=== PATIENT | female | born 1970 | race Caucasian/White ===

== ENCOUNTER 2020-03-16 17:13 | Outpatient (REF) | payer OTHER, SELFPAY ==
[2020-03-23 10:37] LABS: HPV mRNA E6/E7 rflx Not Detected (Not Detected)
== END 2020-03-16 17:14 | disposition home or self-care (01) ==
LOC: HO.LNP 17:13
PROVIDERS: Visit Provider Internal Medicine
DX: Z00.01 Encounter for general adult medical examination with abnormal findings (principal)
CPT/HCPCS: 87624; 87625; 88142

== ENCOUNTER 2020-03-18 10:46 | Outpatient (REF) | payer OTHER, SELFPAY ==
[2020-03-18 13:57] LABS: MANUAL DIFF FLAG NO
[2020-03-18 14:01] LABS: Basophils Percent Auto 0.5 % (0-2); Eosinophils Absolute Auto 0.2 X10*3/uL (0.0-0.4); Eosinophils Percent Auto 2.5 % (0-4); Hematocrit 37.8 % (37-47); Hemoglobin 12.1 g/dl (12.0-16.0); Imm Gran Abs Auto 0.02 X10*3/uL (0.00-0.03); Imm Gran Pct Auto 0.2 % (0.0-0.4); Lymphocytes Absolute Auto 2.4 X10*3/uL (1.2-4.9); Lymphocytes Percent Auto 29.7 % (20-40); Mean Corpuscular Hemoglobin 25.5 pg (27.0-33.0); Mean Corpuscular Volume 79.7 fL (80-98); Mean Platelet Volume 9.2 fL (9.4-12.3); Monocytes Absolute Auto 0.5 X10*3/uL (0.1-1.2); Monocytes Percent Auto 5.9 % (2-11); Neutrophils Percent Auto 61.2 % (45-73); Platelet Count 443 X10*3/uL (160-400); Red Blood Count 4.74 X10*6/uL (4.20-5.50); Red Cell Distribution Width 15.5 % (11.0-16.0); White Blood Count 8.1 X10*3/uL (4.8-10.8)
[2020-03-18 14:14] LABS: Estimated Average Glucose 134 mg/dL; Hemoglobin A1c % 6.3 %
[2020-03-18 14:25] LABS: Alanine Aminotransferase 46 U/L (0-31); Anion Gap 15 (12-20); Aspartate Amino Transferase 32 U/L (5-31); Blood Urea Nitrogen 13 mg/dL (9-16); Calcium 8.8 mg/dL (8.4-10.2); Carbon Dioxide 25 mmol/L (22-29); Chloride 101 mmol/L (96-108); Cholesterol 198 mg/dL; Estimated Glomerular Filt Rate > 60; Glucose Fasting 92 mg/dL (60-99); HDL Cholesterol 46 mg/dL; Iron 46 mcg/dL (30-160); LDL Cholesterol Calculated 131 mg/dl; Percent Iron Saturation 13 % (15-50); Potassium 4.4 mmol/l (3.3-5.1); Sodium 137 mmol/L (135-145); Total Iron Binding Capacity 361 mcg/dL (228-428); Triglycerides 107 mg/dL; Unsaturated Iron Binding 315 ug/dL
[2020-03-18 14:39] LABS: Microalbum/Creatinine Ratio Ur 4.9 ug/mg cr
[2020-03-18 14:47] LABS: Ferritin 42 ng/mL (10-250)
== END 2020-03-18 10:47 | disposition home or self-care (01) ==
LOC: HO.HMGCLDS 10:46
PROVIDERS: PCP Internal Medicine; Visit Provider Internal Medicine
DX: Z00.01 Encounter for general adult medical examination with abnormal findings (principal); E11.9 Type 2 diabetes mellitus without complications; E66.01 Morbid (severe) obesity due to excess calories; E78.5 Hyperlipidemia, unspecified; I10 Essential (primary) hypertension; K76.0 Fatty (change of) liver, not elsewhere classified; D50.9 Iron deficiency anemia, unspecified
CPT/HCPCS: 36415; 80048; 80061; 82043; 82728; 83036; 83540; 84450; 84460; 85025

== ENCOUNTER 2020-05-18 14:28 | Outpatient (REF) | payer OTHER, SELFPAY ==
[2020-05-18 15:29] LABS: Creatinine Urine 62.43 mg/dL; Microalbumin Urine < 5.0 mg/L
== END 2020-05-18 14:29 | disposition home or self-care (01) ==
LOC: HO.LNP 14:28
PROVIDERS: Visit Provider Internal Medicine
DX: E11.9 Type 2 diabetes mellitus without complications (principal)
CPT/HCPCS: 82043

== ENCOUNTER 2020-05-19 09:33 | Outpatient (REF) | payer OTHER, SELFPAY ==
[2020-05-19 11:14] LABS: MANUAL DIFF FLAG NO
[2020-05-19 11:24] LABS: Basophils Absolute Auto 0.1 X10*3/uL (0.0-0.2); Basophils Percent Auto 0.6 % (0-2); Eosinophils Absolute Auto 0.2 X10*3/uL (0.0-0.4); Eosinophils Percent Auto 1.5 % (0-4); Hematocrit 40.6 % (37-47); Hemoglobin 12.4 g/dl (12.0-16.0); Imm Gran Abs Auto 0.15 X10*3/uL (0.00-0.03); Imm Gran Pct Auto 1.5 % (0.0-0.4); Lymphocytes Absolute Auto 2.4 X10*3/uL (1.2-4.9); Lymphocytes Percent Auto 24.2 % (20-40); Mean Corpuscular HGB Conc 30.5 g/dl (31.0-35.0); Mean Corpuscular Hemoglobin 24.2 pg (27.0-33.0); Mean Corpuscular Volume 79.3 fL (80-98); Mean Platelet Volume 9.3 fL (9.4-12.3); Monocytes Absolute Auto 0.6 X10*3/uL (0.1-1.2); Monocytes Percent Auto 6.3 % (2-11); Neutrophils Absolute Auto 6.6 X10*3/uL (2.0-8.3); Neutrophils Percent Auto 65.9 % (45-73); Platelet Count 655 X10*3/uL (160-400); Red Blood Count 5.12 X10*6/uL (4.20-5.50); Red Cell Distribution Width 15.1 % (11.0-16.0)
[2020-05-19 12:02] LABS: Alanine Aminotransferase 55 U/L (0-31); Anion Gap 19 (12-20); Aspartate Amino Transferase 38 U/L (5-31); Blood Urea Nitrogen 11 mg/dL (9-16); Calcium 9.1 mg/dL (8.4-10.2); Carbon Dioxide 24 mmol/L (22-29); Chloride 101 mmol/L (96-108); Cholesterol 177 mg/dL; Estimated Glomerular Filt Rate > 60; Glucose Fasting 120 mg/dL (60-99); HDL Cholesterol 25 mg/dL; Iron 20 mcg/dL (30-160); LDL Cholesterol Calculated 123 mg/dl; Percent Iron Saturation 6 % (15-50); Potassium 4.6 mmol/l (3.3-5.1); Sodium 139 mmol/L (135-145); Total Iron Binding Capacity 321 mcg/dL (228-428); Triglycerides 148 mg/dL; Unsaturated Iron Binding 301 ug/dL
[2020-05-19 12:12] LABS: TSH reflex Free T4 0.88 mIU/mL (0.32-4.0)
== END 2020-05-19 09:34 | disposition home or self-care (01) ==
LOC: HO.HMGCLDS 09:33
PROVIDERS: PCP Internal Medicine; Visit Provider Internal Medicine
DX: D50.9 Iron deficiency anemia, unspecified (principal); E11.9 Type 2 diabetes mellitus without complications; K58.0 Irritable bowel syndrome with diarrhea; E66.01 Morbid (severe) obesity due to excess calories; K76.0 Fatty (change of) liver, not elsewhere classified; I10 Essential (primary) hypertension; K21.9 Gastro-esophageal reflux disease without esophagitis; E78.5 Hyperlipidemia, unspecified
CPT/HCPCS: 36415; 80048; 80061; 82306; 83540; 84443; 84450; 84460; 85025

== ENCOUNTER 2020-06-03 12:28 | Outpatient (REF) | payer OTHER, SELFPAY | END 2020-06-03 12:29 | disposition home or self-care (01) | LOC: HO.LNP 12:28 | PROVIDERS: Visit Provider Hospitalist | DX: Z13.89 Encounter for screening for other disorder (principal) ==

== ENCOUNTER 2020-08-05 14:08 | Outpatient (REF) | payer OTHER, SELFPAY | END 2020-08-05 14:09 | disposition home or self-care (01) | LOC: HO.LNP 14:08 | PROVIDERS: Visit Provider Nurse Practitioner Family | DX: J02.9 Acute pharyngitis, unspecified (principal); Z20.822 Contact with and (suspected) exposure to COVID-19 | CPT/HCPCS: U0003; U0005 ==

== ENCOUNTER 2020-09-16 13:50 | Emergency (ER) | payer OTHER, SELFPAY ==
--- NOTE | ~2020-09-16 | CT_ITS ---
EXAMINATION: CT ABDOMEN AND PELVIS WITHOUT CONTRAST CLINICAL INFORMATION: Left lower quadrant pain COMPARISON: None TECHNIQUE: Multidetector volumetric imaging was performed from the superior aspect of the liver through the pubic symphysis. Sagittal and coronal reformatted images were obtained on the technologist's workstation. This CT examination was performed using dose optimization techniques as appropriate, variously including the following: *Automated exposure control *Adjustment of mA and/or kV according to patient size (this includes techniques or standardized protocols for targeted exams where dose is matched to indication/reason for exam; i.e. extremities or head) *Use of iterative reconstruction technique DLP: 1197 mGy-cm FINDINGS: LUNG BASES: The visualized lung bases are unremarkable. LIVER, GALLBLADDER, AND BILIARY TREE: The liver is low in attenuation suggestive of fatty infiltration. No focal liver lesion or biliary duct dilatation. The gallbladder is unremarkable with no evidence of radiopaque gallstones, gallbladder wall thickening, or obvious pericholecystic inflammatory changes. PANCREAS: Unremarkable. SPLEEN: Unremarkable. ADRENAL GLANDS: Unremarkable. KIDNEYS AND URETERS: The kidneys are normal in size, shape, and attenuation. No hydronephrosis, hydroureter, or calculi seen. No perinephric stranding. BLADDER: Unremarkable. GASTROINTESTINAL TRACT: There is mild diverticulosis of the colon. No evidence of diverticulitis is seen. The small and large bowel are unremarkable. The appendix is unremarkable. ABDOMINAL WALL: There is diastasis of the rectus muscles and small umbilical hernia containing fat. LYMPH NODES: There is mild nonspecific fat stranding of the small bowel mesentery. No enlarged lymph nodes are seen. There is no ascites. VASCULAR: Unremarkable. PELVIC VISCERA: Unremarkable. OSSEOUS STRUCTURES: There are degenerative changes of the spine and right hip joint. CT/CT abdomen pelvis wo con IMPRESSION: Diverticulosis. No evidence of diverticulitis. Mild fat stranding of the small bowel mesentery. Fatty liver. Diastasis of the rectus muscles and small umbilical hernia containing fat.
[2020-09-16 14:19] VITALS: BP 124/57; PULSE 80; RESP 18; TEMP 36.9; O2SAT 100; BMI 46.5
[2020-09-16 15:02] VITALS: BP 141/88; PULSE 76; RESP 16; O2SAT 76
--- NOTE | 2020-09-16 15:09 | PC.NURSE ---
Patient comes to ER for evaluation of abdominal pain that she points to upper mid abd and right of mid line that she describes goes into her back. She also says she feels bloated and gassy. Last bm was this morning. Pain started this morning when she got up. Pt denies nausea, vomiting, or diarrhea. Pt states she had a bowel obstruction a few months ago and has had gallbladder issues in the past
[2020-09-16 16:16] LABS: MANUAL DIFF FLAG NO
[2020-09-16 16:20] LABS: Basophils Percent Auto 0.5 % (0-2); Eosinophils Absolute Auto 0.2 X10*3/uL (0.0-0.4); Eosinophils Percent Auto 1.9 % (0-4); Hematocrit 35.3 % (37-47); Hemoglobin 11.1 g/dl (12.0-16.0); Imm Gran Abs Auto 0.02 X10*3/uL (0.00-0.03); Imm Gran Pct Auto 0.2 % (0.0-0.4); Lymphocytes Absolute Auto 2.7 X10*3/uL (1.2-4.9); Lymphocytes Percent Auto 30.9 % (20-40); Mean Corpuscular HGB Conc 31.4 g/dl (31.0-35.0); Mean Corpuscular Hemoglobin 24.5 pg (27.0-33.0); Mean Corpuscular Volume 77.9 fL (80-98); Mean Platelet Volume 8.6 fL (9.4-12.3); Monocytes Absolute Auto 0.6 X10*3/uL (0.1-1.2); Monocytes Percent Auto 6.3 % (2-11); Neutrophils Absolute Auto 5.3 X10*3/uL (2.0-8.3); Neutrophils Percent Auto 60.2 % (45-73); Platelet Count 366 X10*3/uL (160-400); Red Blood Count 4.53 X10*6/uL (4.20-5.50); Red Cell Distribution Width 15.8 % (11.0-16.0); White Blood Count 8.8 X10*3/uL (4.8-10.8)
[2020-09-16] MEDS: 0.9 % Sodium Chloride 1,000 ML 999 ML IVCONT (16:24)
[2020-09-16 16:37] LABS: Appearance Urine CLEAR; Color Urine YELLOW; Glucose Urine UA NEG (NEG); Leukocyte Esterase Urine NEG (NEG); Nitrite Urine NEG (NEG); Urine Blood NEG (NEG); Urine Ketones NEG (NEG); Urine Protein NEG (NEG-TRACE)
[2020-09-16 16:40] LABS: Alanine Aminotransferase 31 U/L (0-31); Albumin Level 3.9 g/dL (3.5-5.0); Alkaline Phosphatase 98 U/L (39-117); Anion Gap 13 (12-20); Aspartate Amino Transferase 22 U/L (5-31); Bilirubin Direct 0.2 mg/dL (0.0-0.5); Bilirubin Total 0.6 mg/dL (0.0-1.0); Blood Urea Nitrogen 14 mg/dL (9-16); Calcium 9.7 mg/dL (8.4-10.2); Carbon Dioxide 26 mmol/L (22-29); Chloride 104 mmol/L (96-108); Creatinine Clr Calc Pharmacy 116.8; Estimated Glomerular Filt Rate > 60; Glucose Random 92 mg/dL (60-115); Lipase 23 U/L (8-78); Magnesium 2.2 mg/dL (1.6-2.6); Potassium 4.3 mmol/L (3.3-5.1); Sodium 139 mmol/L (135-145); Total Protein 6.5 g/dL (6.5-8.0)
--- NOTE | 2020-09-16 16:58 | ED_ITS ---
HPI - General Adult General Chief complaint: General Medical Stated complaint: abd/back pain Time Seen by Provider: 09/16/20 15:21 Source: patient Mode of arrival: ambulatory History of Present Illness HPI narrative: 50-year-old female with a past medical history of GERD, diverticulosis, hyperlipidemia, HTN, fatty liver, epigastric hernia repair, SBO, IBS, morbid obesity, DARIELA, TBI, diabetes, presenting to the ED complaining periumbilical/LLQ abdominal pain radiating to back s/p mowing lawn yesterday. Pain described as ripping/tearing. Denies known injury/trauma or fall, nausea/vomiting, diarrhea/constipation, dysuria/hematuria, fever, chills. Last BM today Onset (ago): day(s) Related Data Home Medications Medication Instructions Recorded Confirmed flu vacc [id number] 6mos up(PF) ml IM 03/16/20 06/06/20 Previous Rx's Medication Instructions Recorded omeprazole 20 mg capsule,delayed 20 mg PO DAILY PRN #30 cap 02/12/20 release dicyclomine 10 mg capsule 20 mg PO TID #180 cap 04/07/20 azithromycin 500 mg tablet 500 mg PO DAILY 5 Days #5 tab 08/05/20 prednisone 20 mg tablet 40 mg PO DAILY 5 Days #10 tab 08/05/20 Allergies Allergy/AdvReac Type Severity Reaction Status Date / Time cephalexin [From KEFLEX] Allergy Unknown ANGIOEDEMA Verified 09/16/20 14:19 contrast dyes Allergy Unknown tongue Verified 09/16/20 14:19 numbness, headache, airway involvement, tongue numbness, headache, airway involvement kiwi [KIWI] Allergy Unknown ANAPHYLAXIS Verified 09/16/20 14:19 Sulfa (Sulfonamide Allergy Unknown anaphylaxis, Verified 09/16/20 14:19 Antibiotics) diarrhea [SULFA (SULFONAMIDE ANTIBIOTICS)] acetaminophen [Percocet] AdvReac Unknown vomiting Verified 09/16/20 14:19 naproxen [Naprosyn] AdvReac Unknown vomiting Verified 09/16/20 14:19 nitrofurantoin [Macrobid] AdvReac Unknown dizziness Verified 09/16/20 14:19 oxycodone [Percocet] AdvReac Unknown vomiting Verified 09/16/20 14:19 sulfamethoxazole AdvReac Unknown diarrhea Verified 09/16/20 14:19 Review of Systems Review of Systems: Constitutional: No Fever, No Chills Cardiovascular: No Chest Pain, No SOB Respiratory: No Cough, No Dyspnea Gastrointestinal: No Nausea, No Vomiting, No Diarrhea, No Constipation, + Abdominal pain Genitourinary: No Dysuria, No Urinary Frequency, No Hematuria, No Flank Pain Musculoskeletal: No joint pain, No Myalgias Skin: No Skin Lesions, No rash Neuro: No Weakness, No Numbness, No Headache Yes all other systems are reviewed and are negative [facility] Past Medical History Attestation statement: The following information was validated with the patient. Medical History (Updated 09/16/20 @ 17:25 by EFRA Delatorre) Chronic GERD Diverticulosis Dyslipidemia Essential hypertension Fatty liver Folliculitis History of small bowel obstruction Hypochromic anemia IBS (irritable bowel syndrome) Morbid obesity Narcolepsy Oral thrush DARIELA (obstructive sleep apnea) Traumatic brain injury Type 2 diabetes mellitus without complication, without long-term current use of insulin Surgical History History of carpal tunnel release of both wrists History of colonoscopy History of hernia repair Family History Family History Father Diabetes mellitus HTN (hypertension) Mother Diabetes mellitus HTN (hypertension) Son Autism Daughter Glioblastoma multiforme Maternal Grandfather Cancer of prostate Brother No problems noted. Sister No problems noted. Son No problems noted. Social History Social History Alcohol intake: former Patient Tobacco Use Status: Never used Tobacco Use of substances other than those prescribed or required for medical reasons: No Advance Directives: Yes Advance Directives Information Provided: Yes Advance Directives on File: No Patient : No Physical Exam Vital Signs: Vital Signs: Last Vital Signs Temp 98.4 F 09/16/20 14:19 Pulse 76 09/16/20 15:02 Resp 16 09/16/20 15:02 BP 141/88 H 09/16/20 15:02 Pulse Ox 76 L 09/16/20 15:02 Body Mass Index 46.5 Const: General: cooperative, healthy appearing and no acute distress Orientation/consciousness: patient oriented x3 Limitations: no limitations HENMT: Head: Yes normal to inspection Ears: hearing grossly normal bilaterally General nose exam: Normal external nose present Face and sinus: Yes normal facial exam Eyes: General: appearance normal, both eyes and all related structures EOM: EOMs intact bilaterally Neck: Neck: Yes normal visual inspection and Yes no meningeal signs Resp: Effort & Inspection: normal respiratory effort Cardio: Rate: regular rate GI: Other: No appreciable protruding hernia. +Diastasis recti Inspection: Yes normal to inspection Palpation (GI): Soft to palpation, Tenderness to pal pation present (GI) in the LLQ and periumbilically, no guarding and not rigid : General: Yes no CVA tenderness Back/Spine/Pelvis: Back: no CVA tenderness Skin: Rashes: no rashes Wounds: no wounds Neuro: General: patient oriented x3 and no meningeal signs Gait exam (Neuro): Normal gait present Extrem: General: Yes normal to inspection Course Course Course Narrative: -no leukocytosis, H&H stable, labs otherwise unremarkable, UA negative CT abdomen pelvis wo con IMPRESSION: Diverticulosis. No evidence of diverticulitis. Mild fat stranding of the small bowel mesentery. Fatty liver. Diastasis of the rectus muscles and small umbilical hernia containing fat. > results discussed with patient including worrisome signs and symptoms and strict return precautions. Patient verbalized understanding feel safe for discharge home Medical Decision Making MDM Narrative Medical decision making narrative: 50-year-old female with a past medical history of GERD, diverticulosis, hyperlipidemia, HTN, fatty liver, epigastric hernia repair, SBO, IBS, morbid obesity, DARIELA, TBI, diabetes, presenting to the ED complaining periumbilical/LLQ abdominal pain radiating to back s/p mowing lawn yesterday. On exam VSS, NAD, abdomen soft with periumbilical/LLQ ttp, no rebound or guarding, no CVAT. Concern for MSK strain/pain vs hernia vs diverticulitis. Lower concern for cholecystitis or appendicitis or renal stone Plan: Labs, UA, CT AP, reassess Lab Data Result diagrams: 09/16/20 16:10 09/16/20 16:10 Labs: Lab Results 09/16/20 09/16/20 09/16/20 Range/Units 16:10 16:10 16:28 WBC 8.8 (4.8-10.8) X10*3/uL RBC 4.53 (4.20-5.50) X10*6/uL Hgb 11.1 L (12.0-16.0) g/dl Hct 35.3 L (37-47) % MCV 77.9 L (80-98) fL MCH 24.5 L (27.0-33.0) pg MCHC 31.4 (31.0-35.0) g/dl RDW 15.8 (11.0-16.0) % Plt Count 366 D (160-400) X10*3/uL MPV 8.6 L (9.4-12.3) fL Immature Gran % (Auto) 0.2 (0.0-0.4) % Neut % (Auto) 60.2 (45-73) % Lymph % (Auto) 30.9 (20-40) % [place] % (Auto) 6.3 (2-11) % Eos % (Auto) 1.9 (0-4) % Baso % (Auto) 0.5 (0-2) % Lymph # (Auto) 2.7 (1.2-4.9) X10*3/uL [place] # (Auto) 0.6 (0.1-1.2) X10*3/uL Eos # (Auto) 0.2 (0.0-0.4) X10*3/uL Baso # (Auto) 0.0 (0.0-0.2) X10*3/uL Abs Immat Gran (auto) 0.02 (0.00-0.03) X10*3/uL Absolute Neuts (auto) 5.3 (2.0-8.3) X10*3/uL Absolute Nucleated RBC 0.000 (0.0-0.012) X10*3/uL Nucleated RBC % (auto) 0.0 (0.0-0.2) /100WBC Sodium 139 (135-145) mmol/L Potassium 4.3 (3.3-5.1) mmol/L Chloride 104 (96-108) mmol/L Carbon Dioxide 26 (22-29) mmol/L Anion Gap 13 (12-20) BUN 14 (9-16) mg/dL Creatinine 0.79 (0.5-1.4) mg/dL Estim Creat Clear Calc 116.8 Estimated GFR > 60 Random Glucose 92 (60-115) mg/dL Calcium 9.7 D (8.4-10.2) mg/dL Magnesium 2.2 (1.6-2.6) mg/dL Total Bilirubin 0.6 (0.0-1.0) mg/dL Direct Bilirubin 0.2 (0.0-0.5) mg/dL AST 22 D (5-31) U/L ALT 31 (0-31) U/L Alkaline Phosphatase 98 (39-117) U/L Total Protein 6.5 (6.5-8.0) g/dL Albumin 3.9 (3.5-5.0) g/dL Lipase 23 (8-78) U/L Urine Color YELLOW Urine Appearance CLEAR Urine pH 6.0 (5.0-8.0) Ur Specific [place] 1.020 (1.005-1.025) Urine Protein NEG (NEG-TRACE) MG/DL Urine Glucose (UA) NEG (NEG) MG/DL Urine Ketones NEG (NEG) MG/DL Urine Blood NEG (NEG) Urine Nitrite NEG (NEG) Ur Leukocyte Esterase NEG (NEG) Discharge Plan Discharge Clinical Impression: Diastasis recti, Hernia, umbilical Patient Disposition: Home, Self-Care Instructions: Abdominal Pain (ED) Additional Instructions: Your CT scan showed diverticulosis, mild fat stranding of her small bowel, and the known separation of your abdominal muscles Avoid any excessive lifting or strenuous exercise for the next week Take Tylenol and Motrin for pain Follow-up with your surgeon If her symptoms persist or worsen you develop fever, chills, nausea/vomiting, constipation, or not passing bowel movements please return to the ED Prescriptions: No Action omeprazole 20 mg capsule,delayed release(DR/EC) 20 mg PO DAILY PRN (Reason: for heartburn) Qty: 30 RF: 4 dicyclomine 10 mg capsule 20 mg PO TID Qty: 180 RF: 0 azithromycin 500 mg tablet 500 mg PO DAILY 5 Days Qty: 5 RF: 0 Fluzone Quad [id number] (PF) 60 mcg (15 mcg x 4)/0.5 mL syringe IM RF: 0 prednisone 20 mg tablet 40 mg PO DAILY 5 Days Qty: 10 RF: 0 Referrals: Sabrina Carr MD [Primary Care Provider] - 2 days
== END 2020-09-16 17:47 | disposition home or self-care (01) ==
PROVIDERS: Physician Assistant; Emergency Provider Internal Medicine; PCP Internal Medicine
DX: K42.9 Umbilical hernia without obstruction or gangrene (principal); E11.9 Type 2 diabetes mellitus without complications; I10 Essential (primary) hypertension; E78.5 Hyperlipidemia, unspecified; K21.9 Gastro-esophageal reflux disease without esophagitis; K76.0 Fatty (change of) liver, not elsewhere classified; Z87.820 Personal history of traumatic brain injury; R10.33 Periumbilical pain
CPT/HCPCS: 36415; 74176; 80048; 80076; 81003; 83690; 83735; 85025; 96360; 99284

== ENCOUNTER 2021-05-11 09:01 | Outpatient (REF) | payer OTHER, SELFPAY ==
[2021-05-11 09:34] LABS: Binax Internal Control QC Valid; Binax Now Covid-19 Ag Negative (Negative)
== END 2021-05-11 09:02 | disposition home or self-care (01) ==
LOC: HO.HMGCLDS 09:01
PROVIDERS: Visit Provider Physician Assistant Medical
DX: Z13.89 Encounter for screening for other disorder (principal)

== ENCOUNTER 2021-06-21 13:47 | Outpatient (REF) | payer OTHER, SELFPAY ==
--- NOTE | ~2021-06-21 | XR_ITS ---
EXAMINATION: XR BILATERAL HIPS WITH AP PELVIS CLINICAL INFORMATION: Pain in right hip COMPARISON: 04/28/2018 TECHNIQUE: AP view of the pelvis and AP and frog-leg lateral views of each hip were obtained. FINDINGS: No acute fracture or dislocation. Mild coxa valga on the right. Severe right hip arthrosis with [id number] contact superiorly, subchondral sclerosis and prominent subchondral cystic changes as well as lateral uncovering of the femoral head. Left hip joint space relatively preserved. Small acetabular and femoral collar marginal osteophytes. Femoral heads are spherical. Pelvic ring intact. Mild bilateral sacroiliac arthrosis. Soft tissues unremarkable. XR/XR hip BI w [id number] IMPRESSION: * No acute findings. * Severe right hip arthrosis with [id number] contact showing interval progression since the prior exam. * Mild left hip arthrosis * Mild bilateral sacroiliac arthrosis.
== END 2021-06-21 13:48 | disposition home or self-care (01) ==
LOC: HO.HMGCX 13:47
PROVIDERS: Visit Provider Internal Medicine
DX: M25.551 Pain in right hip (principal); M25.552 Pain in left hip; G89.29 Other chronic pain
CPT/HCPCS: 73521

== ENCOUNTER 2021-06-22 10:02 | Outpatient (REF) | payer OTHER, SELFPAY ==
[2021-06-22 11:02] LABS: MANUAL DIFF FLAG NO
[2021-06-22 11:17] LABS: Basophils Percent Auto 0.5 % (0-2); Eosinophils Absolute Auto 0.2 X10*3/uL (0.0-0.4); Eosinophils Percent Auto 2.7 % (0-4); Hematocrit 35.9 % (37.0-47.0); Imm Gran Abs Auto 0.02 X10*3/uL (0.00-0.03); Imm Gran Pct Auto 0.3 % (0.0-0.4); Lymphocytes Absolute Auto 2.4 X10*3/uL (1.2-4.9); Lymphocytes Percent Auto 36.5 % (20-40); Mean Corpuscular HGB Conc 30.6 g/dl (31.0-35.0); Mean Corpuscular Hemoglobin 23.7 pg (27.0-33.0); Mean Corpuscular Volume 77.4 fL (80.0-98.0); Monocytes Absolute Auto 0.3 X10*3/uL (0.1-1.2); Monocytes Percent Auto 5.2 % (2-11); Neutrophils Absolute Auto 3.6 x10*3/uL (2.0-8.3); Neutrophils Percent Auto 54.8 % (45-73); Platelet Count 419 X10*3/uL (160-400); Red Blood Count 4.64 X10*6/uL (4.20-5.50); White Blood Count 6.6 X10*3/uL (4.8-10.8)
[2021-06-22 11:54] LABS: Vitamin D 25-OH Total 29.5 ng/mL (>30)
[2021-06-22 12:00] LABS: Alanine Aminotransferase 34 U/L (0-31); Anion Gap 13 (12-20); Aspartate Amino Transferase 30 U/L (5-31); Blood Urea Nitrogen 13 mg/dL (9-16); Calcium 9.8 mg/dL (8.4-10.2); Carbon Dioxide 28 mmol/L (22-29); Chloride 103 mmol/L (96-108); Cholesterol 207 mg/dL; Estimated Glomerular Filt Rate > 60; Glucose Fasting 97 mg/dL (60-99); HDL Cholesterol 45 mg/dL; Iron 37 mcg/dL (30-160); LDL Cholesterol Calculated 132 mg/dl; Potassium 4.6 mmol/L (3.3-5.1); Sodium 139 mmol/L (135-145); Triglycerides 150 mg/dL
[2021-06-22 12:11] LABS: Percent Iron Saturation 9 % (15-50); Total Iron Binding Capacity 415 mcg/dL (228-428); Unsaturated Iron Binding 378 ug/dL
== END 2021-06-22 10:03 | disposition home or self-care (01) ==
LOC: HO.HMGCLDS 10:02
PROVIDERS: Visit Provider Internal Medicine
DX: Z00.01 Encounter for general adult medical examination with abnormal findings (principal); D64.9 Anemia, unspecified
CPT/HCPCS: 36415; 80048; 80061; 82306; 83540; 84450; 84460; 85025

== ENCOUNTER 2021-07-11 08:00 | Outpatient (RCR) | payer OTHER, SELFPAY | END 2022-01-19 13:35 | disposition home or self-care (01) | LOC: HO.PTCHIC 08:00 | PROVIDERS: PCP Internal Medicine; Visit Provider Orthopaedic Surgery | DX: M48.02 Spinal stenosis, cervical region (principal) | CPT/HCPCS: 97110; 97140; 97162 ==

== ENCOUNTER → 2022-02-19 16:04 | Outpatient (BNVA) | payer OTHER, SELFPAY | PROVIDERS: PCP Internal Medicine; Visit Provider Nurse Practitioner Family | DX: K21.9 Gastro-esophageal reflux disease without esophagitis (principal); K58.2 Mixed irritable bowel syndrome; R10.13 Epigastric pain | CPT/HCPCS: 99202 ==

== ENCOUNTER 2022-03-24 09:14 | Outpatient (REF) | payer OTHER, SELFPAY ==
[2022-03-24 12:11] LABS: Alanine Aminotransferase 30 U/L (0-31); Albumin Level 3.7 g/dL (3.5-5.0); Alkaline Phosphatase 110 U/L (39-117); Aspartate Amino Transferase 27 U/L (5-31); Bilirubin Direct 0.2 mg/dL (0.0-0.5); Bilirubin Total 0.8 mg/dL (0.0-1.0); Lipase 18 U/L (8-78); TSH reflex Free T4 0.86 uIU/mL (0.32-4.0); Total Protein 6.5 g/dL (6.5-8.0)
== END 2022-03-24 09:15 | disposition home or self-care (01) ==
LOC: HO.HMGCLDS 09:14
PROVIDERS: Nurse Practitioner Family; PCP Internal Medicine; Visit Provider Internal Medicine
DX: R10.9 Unspecified abdominal pain (principal); K59.00 Constipation, unspecified
CPT/HCPCS: 36415; 80076; 83690; 84443

== ENCOUNTER 2022-03-30 14:45 | Outpatient (REF) | payer OTHER, SELFPAY | END 2022-03-30 14:46 | disposition home or self-care (01) | LOC: HO.HMGCLNP 14:45 | PROVIDERS: Visit Provider Nurse Practitioner Family | DX: Z13.89 Encounter for screening for other disorder (principal) ==

== ENCOUNTER 2022-03-31 | Outpatient (REF) | payer OTHER, SELFPAY | END 2022-03-31 00:01 | disposition home or self-care (01) | LOC: HO.LNP | PROVIDERS: Visit Provider Nurse Practitioner Family | DX: R10.9 Unspecified abdominal pain (principal) | CPT/HCPCS: 82656 ==

== ENCOUNTER 2023-06-21 12:08 | Outpatient (AMB) | payer OTHER, SELFPAY ==
--- NOTE | 2023-06-21 12:37 | A.OFFPC_ITS ---
Vital Signs 06/21/23 12:44 Height 5 ft 5 in Weight 238 lb BMI 39.6 BP 118/68 Blood Pressure Location Lt brachial Position Sitting Pulse 66 Pulse Source Pulse Oximeter Pulse Oximetry (%) 98 Oxygen Delivery Method Room Air Intake Visit Reasons: Followup meds Allergies cephalexin [From KEFLEX] Allergy (Unknown, Verified 06/21/23 13:02) ANGIOEDEMA contrast dyes Allergy (Unknown, Verified 06/21/23 13:02) tongue numbness, headache, airway involvement, tongue numbness, headache, airway involvement kiwi [KIWI] Allergy (Unknown, Verified 06/21/23 13:02) ANAPHYLAXIS Sulfa (Sulfonamide Antibiotics) [SULFA (SULFONAMIDE ANTIBIOTICS)] Allergy (Unknown, Verified 06/21/23 13:02) anaphylaxis, diarrhea acetaminophen [Percocet] Adverse Reaction (Unknown, Verified 06/21/23 13:02) vomiting naproxen [Naprosyn] Adverse Reaction (Unknown, Verified 06/21/23 13:02) vomiting nitrofurantoin [Macrobid] Adverse Reaction (Unknown, Verified 06/21/23 13:02) dizziness oxycodone [Percocet] Adverse Reaction (Unknown, Verified 06/21/23 13:02) vomiting sulfamethoxazole Adverse Reaction (Unknown, Verified 06/21/23 13:02) diarrhea Medication List - Last Reconciled 06/21/23 by Sabrina Carr MD cetirizine 10 mg PO DAILY doxycycline hyclate 100 mg PO BID 10 days ferrous sulfate 325 mg PO DAILY omeprazole 20 mg PO DAILY Tobacco use date assessed: 06/21/23 Dental Screening Dental Screen Date: 06/21/23 Did you have a dental visit in the last 12 months?: Yes Did you have a dental problem in the last 6 months where you did not have access to dental care?: No Was dental information given to patient?: Patient has dentist HPI Followup meds HPI Details 53-year-old lady with history of PE IBS, hypertension, hyperlipidemia, obstructive sleep apnea, anemia, and diet-controlled diabetes mellitus, status post laparoscopic sleeve gastrectomy with Dr. Looney on 04/03/2023, here today for physical exam and follow-up. She has been feeling well, states that she has lost approximately 40 lb since her surgery. She states that she has been feeling much better since her surgery, but still needing to use her CPAP . Complains of painful varicose veins in both lower extremities and in her lower abdomen. She is overdue for her cervical cancer screening, but is up-to-date with her screening colonoscopy done by Dr. Fernandez in 2020 which showed normal findings except for presence of internal external hemorrhoids and also had an upper endoscopy done at that time which showed normal results. [facility] Medical History (Updated 06/23/23 @ 20:23 by Sabrina Carr MD) Rosacea Varicose veins of bilateral lower extremities with pain Anemia Hidradenitis suppurativa Primary osteoarthritis of right hip Chronic hip pain, bilateral Annual visit for general adult medical examination with abnormal findings Diverticulosis History of small bowel obstruction Folliculitis Type 2 diabetes mellitus without complication, without long-term current use of insulin Morbid obesity Traumatic brain injury Fatty liver Chronic GERD Essential hypertension DARIELA (obstructive sleep apnea) Narcolepsy Dyslipidemia Surgical History (Updated 06/21/23 @ 13:07 by Sabrina Carr MD) History of sleeve gastrectomy History of colonoscopy History of hernia repair History of carpal tunnel release of both wrists Family History Father Diabetes mellitus HTN (hypertension) Mental health disorder Mother Diabetes mellitus HTN (hypertension) Son Autism Daughter Glioblastoma multiforme Maternal Grandfather Cancer of prostate Brother No problems noted. Sister No problems noted. Son No problems noted. Social History Housing: House Alcohol intake: former Patient Tobacco Use Status: Never used Tobacco e-Cigarette/Vaping Use: Never Used service: No Current occupational status: unemployed Cognitive needs: No Hearing needs: No Vision needs: No Questionnaire PHQ-9 Over the last 2 weeks, how often have you been bothered by any of the following problems? 1. Little interest or pleasure in doing things: not at all 2. Feeling down, depressed, or hopeless: not at all 3. Trouble falling or staying asleep, or sleeping too much: not at all 4. Feeling tired or having little energy: not at all 5. Poor appetite or overeating: not at all 6. Feeling bad about yourself - or that you are a failure or have let yourself or your family down: not at all 7. Trouble concentrating on things, such as reading the newspaper or watching television: not at all 8. Moving or speaking so slowly that other people could have noticed. Or the opposite - being so fidgety or restless that you have been moving around a lot more than usual: not at all 9. Thoughts that you would be better off or of hurting yourself in some way: not at all Total score: 0 Depression Screening Interpretation: Negative Depression Screening Done: Yes 34557 - PHQ-9 Billing: Yes Source: Developed by Drs. Jef Valentino, Karina Gray, Dimitrios Hutchinson and colleagues, with an educational malik from [employer]. Thrive Questionnaire Date Thrive assessed: 06/21/23 I am a: Patient What is your living situation today?: I have a steady place to live Within the past 12 months, did the food you bought not last and you didn't have the money to get more?: Never true Within the past 12 months, did you worry whether your food would run out before you got money to buy more?: Never true Do you have trouble paying for medicines?: No Do you have trouble getting transportation to medical appointments?: No Do you have trouble paying your heating and electricity bill?: No Do you have trouble taking care of your child, family member or friend?: No Do you have trouble with day-to-day activities such as bathing, preparing meals, shopping, managing finances, etc.?: No Are you currently unemployed and looking for a job?: No Are you interested in more education?: No Please select the resources that you would like help with: None THRIVE Score: 0 AUDIT C Alcohol Use Questionnaire (AUDIT-C) 1. How often do you have a drink containing alcohol?: Monthly or less 2. How many drinks containing alcohol do you have on a typical day when you are drinking?: 1 or 2 3. How often do you have six or more drinks on one occasion?: Never Total Score: 1 DEMARIO-7 AMB Questionnaire DEMARIO-7 Date DEMARIO - 7 assessed: 06/21/23 Feeling nervous, anxious, or on edge: 0 = Not at all Not being able to stop or control worryin = Not at all Worrying too much about different things: 0 = Not at all Trouble relaxin = Not at all Being so restless that it is hard to sit still: 0 = Not at all Becoming easily annoyed or irritable: 0 = Not at all Feeling afraid as if something awful might happen: 0 = Not at all Total DEMARIO-7 score (0-4 normal; 5-9 mild; 10-14 moderate; 15-21 severe): 0 Source: Developed by Drs. Jef Valentino, Karina Gray, Dimitrios Hutchinson and colleagues, with an educational malik from [employer]. DEMARIO-7 Assessment Billing DEMARIO-7 Assessment Tool: DEMARIO-7 Assessment 40944 Review of Systems Const Denies fatigue, Denies fever(s), Denies headache(s) and Denies weakness Eyes Denies change in vision ENT Denies dizziness, Denies headache(s) and Denies sore throat Card Reports as per HPI, Denies chest pain, Denies lightheadedness, Denies palpitations and Denies dyspnea Resp Denies chest congestion, Denies cough, Denies dyspnea and Denies wheezing GI Reports no additional complaints Denies urinary frequency, Denies dysuria and Denies urinary urgency Musc Reports no additional complaints Skin/Breast Denies rash Neuro Denies dizziness, Denies headache(s) and Denies weakness Psych Reports no additional complaints Endo Denies fatigue, Denies polydipsia, Denies polyuria and Denies palpitations Dion/Lymph Reports no additional complaints Aller/Immun Reports no additional complaints and Denies wheezing Physical exam (Primary Care) Vital Signs: Last Vital Signs Pulse 66 06/21/23 12:44 BP 118/68 06/21/23 12:44 Pulse Ox 98 06/21/23 12:44 Oxygen Delivery Method Room Air 06/21/23 12:44 BMI result Body Mass Index 39.6 Tobacco/Smoking Status: Tobacco use Status Tobacco use date assessed 06/21/23 06/21/23 12:49 Patient Tobacco Use Status Never used Tobacco 06/21/23 12:37 e-Cigarette/Vaping Use Never Used 06/21/23 12:37 PHQ-9: PHQ-9 Score PHQ-9: Total score 0 06/23/23 19:51 Depression Screening Interpretation: Negative Thrive Assessment: Date of Thrive Assessment Date Thrive assessed 06/21/23 06/23/23 19:51 Const General: no acute distress and alert Nutritional Appearance: obese Orientation/consciousness: patient oriented x3 HENTX Other: Normocephalic atraumatic, moist oral mucosa with no oral lesions Ears: external ears normal, TM's normal bilaterally and EAC's normal General nose exam: Normal external nose present and No nasal discharge present Mouth: Normal oral and palatal mucosa present, oropharynx normal and moist mucous membranes Eyes General: appearance normal, both eyes and all related structures Neck Other: Supple, no lymphadenopathy, Neck: Yes full ROM, Yes no lymphadenopathy and Yes supple Chest Breast/axilla palpation: normal palpation of the breasts Resp Effort & Inspection: normal respiratory effort and able to speak in complete sentences Auscultation: clear to auscultation bilaterally Cardio Other: S1-S2 present regular rate and rhythm Rate: regular rate Rhythm: regular rhythm Heart sounds: S1 normal heart sound present and S2 normal heart sound present GI Other: Obese , enlarged veins noted in lower abdominal area, soft normal bowel sounds, slight tenderness on palpation over epigastric area, with no rebound or guarding, no mass palpated Inspection: Yes Abdominal panniculus present Palpation (GI): Soft to palpation, nontender and no masses Auscultation: normal bowel sounds Back/Spine/Pelvis Back: No back tenderness Skin General skin exam: no rashes or lesions noted Neuro General: patient oriented x3, gait normal, tone normal, moves all extremities, Normal light touch and pain sensation and no focal motor deficits Cranial nerves: Yes CN's II-XII intact bilaterally Cognition (Neuro): normal cognition Extrem Other: Her large varicosities noted in both lower extremities extending from the thighs up to lower leg General: Yes full ROM, Yes no joint enlargement, Yes no clubbing, cyanosis or edema and Yes no calf tenderness Psych Appearance: grossly normal and well kempt Mental Status: mental status grossly normal Speech and movement: Normal speech and movement present Affect: normal affect Attitude: cooperative Thought process: Normal thought process present Thought content: Normal thought content present Assessment and Plan Assessment & Plan (1) Anemia: Code(s): D64.9 - Anemia, unspecified Qualifiers: Anemia type: unspecified type Qualified Code(s): D64.9 - Anemia, unspecified Plan: Will check another CBC and iron profile (2) Annual visit for general adult medical examination with abnormal findings: Code(s): Z00.01 - Encounter for general adult medical examination with abnormal findings Plan: Will check appropriate labs. Recommended dental visit every 6 months and regular eye exams, at least every 2 years. Take adequate calcium in diet and vitamin-D 3 at 2000 IU per cap once a day, in addition to weight-bearing exercises to help maintain good muscle tone and weight control. Instructed to do self-breast exam, and get yearly mammogram, referred to [facility] for her routine Pap and pelvic exam. Has had COVID vaccines in the past but does not want to get the booster nor does she want to get a flu shot, up-to-date with her pneumonia vaccine and Tdap (3) Type 2 diabetes mellitus without complication, without long-term current use of insulin: Code(s): E11.9 - Type 2 diabetes mellitus without complications Plan: Hemoglobin A1c ordered, continue with adherence to healthy eating habits and regular exercise (4) Dyslipidemia: Code(s): E78.5 - Hyperlipidemia, unspecified Plan: Fasting lipid panel ordered, continue with adherence to healthy eating habits and getting regular exercise (5) DARIELA (obstructive sleep apnea): Code(s): G47.33 - Obstructive sleep apnea (adult) (pediatric) Plan: Continue on CPAP continue with weight loss through diet and exercise (6) Varicose veins of bilateral lower extremities with pain: Code(s): I83.813 - Varicose veins of bilateral lower extremities with pain Plan: Referred to vascular surgery for further evaluation. Has tried wearing compression socks in the past but they keep rolling down and is extremely uncomfortable per patient (7) Cervical cancer screening: Code(s): Z12.4 - Encounter for screening for malignant neoplasm of cervix Plan: Referred to [facility] for her routine cervical cancer screening and pelvic exam Orders: Orders Complete Blood Count Auto Diff 06/22/23 D64.9 - Anemia, unspecified, E11.9 - Type 2 diabetes mellitus without complications, E78.5 - Hyperlipidemia, unspecified, G47.33 - Obstructive sleep apnea (adult) (pediatric), G47.419 - Narcolepsy without cataplexy, I83.813 - Varicose veins of bilateral lower extremities with pain, Z00.01 - Encounter for general adult medical examination with abnormal findings IRON PROFILE 06/22/23 D64.9 - Anemia, unspecified, E11.9 - Type 2 diabetes mellitus without complications, E78.5 - Hyperlipidemia, unspecified, G47.33 - Obstructive sleep apnea (adult) (pediatric), G47.419 - Narcolepsy without catap herman, I83.813 - Varicose veins of bilateral lower extremities with pain, Z00.01 - Encounter for general adult medical examination with abnormal findings Hemoglobin A1c 06/22/23 D64.9 - Anemia, unspecified, E11.9 - Type 2 diabetes mellitus without complications, E78.5 - Hyperlipidemia, unspecified, G47.33 - Obstructive sleep apnea (adult) (pediatric), G47.419 - Narcolepsy without cataplexy, I83.813 - Varicose veins of bilateral lower extremities with pain, Z00.01 - Encounter for general adult medical examination with abnormal findings Vitamin D 25-OH Total 06/22/23 D64.9 - Anemia, unspecified, E11.9 - Type 2 diabetes mellitus without complications, E78.5 - Hyperlipidemia, unspecified, G47.33 - Obstructive sleep apnea (adult) (pediatric), G47.419 - Narcolepsy without cataplexy, I83.813 - Varicose veins of bilateral lower extremities with pain, Z00.01 - Encounter for general adult medical examination with abnormal findings Comprehensive Wolf. Panel Fast 06/22/23 D64.9 - Anemia, unspecified, E11.9 - Type 2 diabetes mellitus without complications, E78.5 - Hyperlipidemia, unspecified, G47.33 - Obstructive sleep apnea (adult) (pediatric), G47.419 - Narcolepsy without cataplexy, I83.813 - Varicose veins of bilateral lower extremities with pain, Z00.01 - Encounter for general adult medical examination with abnormal findings Lipid Panel 06/22/23 D64.9 - Anemia, unspecified, E11.9 - Type 2 diabetes mellitus without complications, E78.5 - Hyperlipidemia, unspecified, G47.33 - Obstructive sleep apnea (adult) (pediatric), G47.419 - Narcolepsy without cataplexy, I83.813 - Varicose veins of bilateral lower extremities with pain, Z00.01 - Encounter for general adult medical examination with abnormal findings Vitamin B12 and Folate 06/22/23 D64.9 - Anemia, unspecified, E11.9 - Type 2 diabetes mellitus without complications, E78.5 - Hyperlipidemia, unspecified, G47.33 - Obstructive sleep apnea (adult) (pediatric), G47.419 - Narcolepsy without cataplexy, I83.813 - Varicose veins of bilateral lower extremities with pain, Z00.01 - Encounter for general adult medical examination with abnormal findings Referrals Vascular Surgery Referral I83.813 - Varicose veins of bilateral lower extremities with pain BMET Referral Z12.4 - Encounter for screening for malignant neoplasm of cervix Coding Level of Care Code Est Pt Prev Care 40-64y(19528) Diagnoses Anemia, unspecified type D64.9 Anemia type: unspecified type Annual visit for general adult medical examination with abnormal findings Z00.01 Type 2 diabetes mellitus without complication, without long-term current use of insulin E11.9 Dyslipidemia E78.5 DARIELA (obstructive sleep apnea) G47.33 Varicose veins of bilateral lower extremities with pain I83.813 Cervical cancer screening Z12.4 Additional Codes DEMARIO-7 Assessment Billing - DEMARIO-7 Assessment Tool: DEMARIO-7 Assessment [id number] ([id number])
[2023-06-21 12:44] VITALS: BP 118/68; PULSE 66; O2SAT 98; BMI 39.6
== END 2023-06-21 13:23 | disposition home or self-care (01) ==
PROVIDERS: PCP Internal Medicine; Visit Provider Internal Medicine
DX: Z00.00 Encounter for general adult medical examination without abnormal findings (principal); E11.69 Type 2 diabetes mellitus with other specified complication; D64.9 Anemia, unspecified; E78.5 Hyperlipidemia, unspecified; G47.33 Obstructive sleep apnea (adult) (pediatric); I83.813 Varicose veins of bilateral lower extremities with pain
CPT/HCPCS: 99396

== ENCOUNTER 2023-06-22 08:58 | Outpatient (REF) | payer OTHER, SELFPAY ==
[2023-06-22 11:47] LABS: MANUAL DIFF FLAG NO
[2023-06-22 11:56] LABS: Basophils Percent Auto 0.7 % (0-2); Eosinophils Absolute Auto 0.2 X10*3/uL (0.0-0.4); Eosinophils Percent Auto 3.1 % (0-4); Hematocrit 38.1 % (37.0-47.0); Imm Gran Abs Auto 0.02 X10*3/uL (0.00-0.03); Imm Gran Pct Auto 0.3 % (0.0-0.4); Lymphocytes Absolute Auto 1.8 X10*3/uL (1.2-4.9); Lymphocytes Percent Auto 28.8 % (20-40); Mean Corpuscular HGB Conc 31.5 g/dl (31.0-35.0); Mean Corpuscular Hemoglobin 24.4 pg (27.0-33.0); Mean Corpuscular Volume 77.4 fL (80.0-98.0); Mean Platelet Volume 9.7 fL (9.4-12.3); Monocytes Absolute Auto 0.3 X10*3/uL (0.1-1.2); Monocytes Percent Auto 5.4 % (2-11); Neutrophils Absolute Auto 3.8 x10*3/uL (2.0-8.3); Neutrophils Percent Auto 61.7 % (45-73); Platelet Count 386 X10*3/uL (160-400); Red Blood Count 4.92 X10*6/uL (4.20-5.50); Red Cell Distribution Width 17.1 % (11.0-16.0); White Blood Count 6.2 X10*3/uL (4.8-10.8)
[2023-06-22 12:16] LABS: Estimated Average Glucose 117 mg/dL; Hemoglobin A1c % 5.7 % (<6.0)
[2023-06-22 12:30] LABS: Alanine Aminotransferase 20 U/L (0-31); Albumin Level 3.9 g/dL (3.5-5.0); Alkaline Phosphatase 100 U/L (39-117); Anion Gap 12 (12-20); Aspartate Amino Transferase 17 U/L (5-31); Bilirubin Total 0.7 mg/dL (0.0-1.0); Blood Urea Nitrogen 16 mg/dL (9-16); Calcium 9.8 mg/dL (8.4-10.2); Carbon Dioxide 26 mmol/L (22-29); Chloride 110 mmol/L (96-108); Cholesterol 168 mg/dL (<200); Estimated Glomerular Filt Rate > 60; Glucose Fasting 87 mg/dL (60-99); HDL Cholesterol 41 mg/dL (>40); Iron 30 mcg/dL (30-160); LDL Cholesterol Calculated 111 mg/dL (<100); Percent Iron Saturation 10 % (15-50); Potassium 3.7 mmol/L (3.3-5.1); Sodium 144 mmol/L (135-145); Total Iron Binding Capacity 286 mcg/dL (228-428); Total Protein 6.9 g/dL (6.5-8.0); Triglycerides 82 mg/dL (<150); Unsaturated Iron Binding 256 ug/dL
[2023-06-22 12:47] LABS: Vitamin D 25-OH Total 45.3 ng/mL (>30)
[2023-06-22 12:48] LABS: Folate 12.3 ng/mL (> or = 4.0); Vitamin B12 583 pg/mL (200-900)
== END 2023-06-22 08:59 | disposition home or self-care (01) ==
LOC: HO.HMGCLDS 08:58
PROVIDERS: PCP Internal Medicine; Visit Provider Internal Medicine
DX: Z00.01 Encounter for general adult medical examination with abnormal findings (principal); D64.9 Anemia, unspecified; E11.9 Type 2 diabetes mellitus without complications; E78.5 Hyperlipidemia, unspecified; G47.33 Obstructive sleep apnea (adult) (pediatric); G47.419 Narcolepsy without cataplexy; I83.813 Varicose veins of bilateral lower extremities with pain
CPT/HCPCS: 36415; 80053; 80061; 82306; 82607; 82746; 83036; 83540; 85025

== ENCOUNTER 2023-08-28 11:35 | Outpatient (REF) | payer OTHER, SELFPAY ==
[2023-08-31 07:24] LABS: TS Negative Control Passed; TS Panel A 0; TS Panel B 0; TS Positive Control Passed; TSpotTB Negative (Negative)
== END 2023-08-28 11:36 | disposition home or self-care (01) ==
LOC: HO.HMGCLDS 11:35
PROVIDERS: PCP Internal Medicine; Visit Provider Internal Medicine
DX: Z11.1 Encounter for screening for respiratory tuberculosis (principal)
CPT/HCPCS: 36415; 86481

== ENCOUNTER 2023-10-26 14:29 | Outpatient (AMB) | payer OTHER, SELFPAY ==
--- NOTE | 2023-10-26 14:30 | MHC.OFFWIV ---
Intake Vital Signs 10/26/23 14:31 Height 5 ft 5 in Weight 215 lb BMI 35.8 BP 122/78 Blood Pressure Location Rt brachial Position Sitting Pulse 65 Pulse Source Pulse Oximeter Temp 98.7 F Temp Source Oral Pulse Oximetry (%) 99 Oxygen Delivery Method Room Air Intake Visit Reasons: EP lft hand fungal infection ??? Intake Note: Pt here c/o ? fungal infection LT hand Patient Tobacco Use Status: Never used Tobacco Allergies cephalexin [From KEFLEX] Allergy (Unknown, Verified 10/26/23 14:30) ANGIOEDEMA contrast dyes Allergy (Unknown, Verified 10/26/23 14:30) tongue numbness, headache, airway involvement, tongue numbness, headache, airway involvement kiwi [KIWI] Allergy (Unknown, Verified 10/26/23 14:30) ANAPHYLAXIS Sulfa (Sulfonamide Antibiotics) [SULFA (SULFONAMIDE ANTIBIOTICS)] Allergy (Unknown, Verified 10/26/23 14:30) anaphylaxis, diarrhea naproxen [Naprosyn] Adverse Reaction (Unknown, Verified 10/26/23 14:30) vomiting nitrofurantoin [Macrobid] Adverse Reaction (Unknown, Verified 10/26/23 14:30) dizziness oxycodone [Percocet] Adverse Reaction (Unknown, Verified 10/26/23 14:30) vomiting sulfamethoxazole Adverse Reaction (Unknown, Verified 10/26/23 14:30) diarrhea Do you need a note to return to daycare/school/sports/work: No HPI EP lft hand fungal infection ??? HPI Details Patient is a 53-year-old female with multiple underlying comorbidities including insulin-dependent diabetes, and obstructive sleep apnea. She does have a history of rosacea, but no other apparent skin conditions. She complains of new onset pruritic rash to the left hand. No known triggers, and denies change in products or new food intake. She denies itching or rash to other areas, shortness of breath or cough or chest discomfort, throat discomfort or tongue swelling or throat tightness, cough or other respiratory symptoms, fatigue, myalgias or malaise, or other significant associated symptoms. [facility] Medical History Rosacea Varicose veins of bilateral lower extremities with pain Anemia Hidradenitis suppurativa Primary osteoarthritis of right hip Chronic hip pain, bilateral Annual visit for general adult medical examination with abnormal findings Diverticulosis History of small bowel obstruction Folliculitis Type 2 diabetes mellitus without complication, without long-term current use of insulin Morbid obesity Traumatic brain injury Fatty liver Chronic GERD Essential hypertension DARIELA (obstructive sleep apnea) Narcolepsy Dyslipidemia Surgical History History of sleeve gastrectomy History of colonoscopy History of hernia repair History of carpal tunnel release of both wrists Family History Father Diabetes mellitus HTN (hypertension) Mental health disorder Mother Diabetes mellitus HTN (hypertension) Son Autism Daughter Glioblastoma multiforme Maternal Grandfather Cancer of prostate Brother No problems noted. Sister No problems noted. Son No problems noted. Social History Housing: House Alcohol intake: former Patient Tobacco Use Status: Never used Tobacco e-Cigarette/Vaping Use: Never Used service: No Current occupational status: unemployed Cognitive needs: No Hearing needs: No Vision needs: No Review of Systems Const All systems reviewed & are unremarkable except as noted in HPI and below Physical Exam Vital Signs: Last Vital Signs Temp 98.7 F 10/26/23 14:31 Pulse 65 10/26/23 14:31 BP 122/78 10/26/23 14:31 Pulse Ox 99 10/26/23 14:31 Oxygen Delivery Method Room Air 10/26/23 14:31 BMI result Body Mass Index 35.8 Skin Other: Raised excoriated maculopapular area to the left hand, no cellulitic features Assessment & Plan Assessment & Plan (1) Fungal dermatitis: Code(s): B36.9 - Superficial mycosis, unspecified Plan: Patient with possible flare-up of tinea corporis or other fungal dermatitis. Advised she trial ketoconazole topical to the area, and follow up if symptoms persist or worsen, she could see PCP or a manager of creative services if that is available to her. Medications: New ketoconazole 2% 1 appl topical BID 30 grams 0RF Coding Level of Care Code Est Pt Level 4 (17235) Diagnoses Fungal dermatitis B36.9
[2023-10-26 14:31] VITALS: BP 122/78; PULSE 65; TEMP 37.1; O2SAT 99; BMI 35.8
== END 2023-10-26 14:58 | disposition home or self-care (01) ==
PROVIDERS: PCP Internal Medicine; Visit Provider Physician Assistant Medical
DX: B36.9 Superficial mycosis, unspecified (principal)
CPT/HCPCS: 99051; 99214

== ENCOUNTER 2023-11-28 13:59 | Outpatient (REF) | payer OTHER, SELFPAY ==
[2023-11-28 16:19] LABS: MANUAL DIFF FLAG NO
[2023-11-28 16:23] LABS: Basophils Absolute Auto 0.1 X10*3/uL (0.0-0.2); Basophils Percent Auto 0.7 % (0-2); Eosinophils Absolute Auto 0.1 X10*3/uL (0.0-0.4); Eosinophils Percent Auto 1.9 % (0-4); Hematocrit 34.7 % (37.0-47.0); Hemoglobin 10.9 g/dl (12.0-16.0); Imm Gran Abs Auto 0.04 X10*3/uL (0.00-0.03); Imm Gran Pct Auto 0.5 % (0.0-0.4); Lymphocytes Absolute Auto 2.2 X10*3/uL (1.2-4.9); Lymphocytes Percent Auto 29.8 % (20-40); Mean Corpuscular HGB Conc 31.4 g/dl (31.0-35.0); Mean Corpuscular Volume 76.4 fL (80.0-98.0); Mean Platelet Volume 9.3 fL (9.4-12.3); Monocytes Absolute Auto 0.5 X10*3/uL (0.1-1.2); Monocytes Percent Auto 6.3 % (2-11); Neutrophils Absolute Auto 4.5 x10*3/uL (2.0-8.3); Neutrophils Percent Auto 60.8 % (45-73); Platelet Count 470 X10*3/uL (160-400); Red Blood Count 4.54 X10*6/uL (4.20-5.50); Red Cell Distribution Width 15.7 % (11.0-16.0); White Blood Count 7.4 X10*3/uL (4.8-10.8)
[2023-11-28 16:40] LABS: Iron 19 mcg/dL (30-160); Percent Iron Saturation 6 % (15-50); Total Iron Binding Capacity 299 mcg/dL (228-428); Unsaturated Iron Binding 280 ug/dL
== END 2023-11-28 14:00 | disposition home or self-care (01) ==
LOC: HO.HMGCLDS 13:59
PROVIDERS: PCP Internal Medicine; Visit Provider Internal Medicine
DX: D64.9 Anemia, unspecified (principal); E78.5 Hyperlipidemia, unspecified; E11.9 Type 2 diabetes mellitus without complications
CPT/HCPCS: 36415; 83540; 85025

== ENCOUNTER 2024-02-01 09:01 | Outpatient (AMB) | payer OTHER, SELFPAY ==
[2024-02-01 09:12] VITALS: BP 128/78; PULSE 78; TEMP 37; O2SAT 98
--- NOTE | 2024-02-01 09:12 | MHC.OFFWIV ---
Intake Vital Signs 02/01/24 09:12 Height 5 ft 5 in BP 128/78 Blood Pressure Location Lt brachial Position Sitting Pulse 78 Pulse Source Pulse Oximeter Temp 98.6 F Temp Source Oral Pulse Oximetry (%) 98 Intake Visit Reasons: EP Head pressure/?sinus pressure Intake Note: pt is here for head pressure, sinus pressure on going for 3 weeks Patient Tobacco Use Status: Never used Tobacco Allergies cephalexin [From KEFLEX] Allergy (Unknown, Verified 02/01/24 09:15) ANGIOEDEMA contrast dyes Allergy (Unknown, Verified 02/01/24 09:15) tongue numbness, headache, airway involvement, tongue numbness, headache, airway involvement kiwi [KIWI] Allergy (Unknown, Verified 02/01/24 09:15) ANAPHYLAXIS Sulfa (Sulfonamide Antibiotics) [SULFA (SULFONAMIDE ANTIBIOTICS)] Allergy (Unknown, Verified 02/01/24 09:15) anaphylaxis, diarrhea naproxen [Naprosyn] Adverse Reaction (Unknown, Verified 02/01/24 09:15) vomiting nitrofurantoin [Macrobid] Adverse Reaction (Unknown, Verified 02/01/24 09:15) dizziness oxycodone [Percocet] Adverse Reaction (Unknown, Verified 02/01/24 09:15) vomiting sulfamethoxazole Adverse Reaction (Unknown, Verified 02/01/24 09:15) diarrhea Medication List - Last Reconciled 02/01/24 by Janiya Carbajal, [facility]- ferrous sulfate 325 mg PO DAILY ketoconazole 2% 1 appl topical BID loratadine (Allergy Relief (loratadine)) 10 mg PO DAILY PRN omeprazole 20 mg PO DAILY Do you need a note to return to daycare/school/sports/work: No HPI HPI Comments History of Present Illness Details 53 y/o F here today cc: I think I have a sinus infection Reports that she has been sick with URI symptoms for several weeks. Today she complains headache, sinus pressure, pain in her cheeks and her forehead. Has been trying hot steamy showers to help without relief. She denies any fever, chills, sore throat, ear pain, cough. Exam: Awake alert NAD Sclera and conjunctiva clear bilat Nares thick mucoid discharge noted, turbinates edematous bilat worse on the left, frontal and maxillary sinus tenderness bilat TM intact with congestion and loss of landmarks bilat worse on the left MMM, pharynx positive postnasal drip RRR LS CTAB Plan What Is It? Sinuses are air-filled spaces behind the bones of the upper face: between the eyes and behind the forehead, nose and cheeks. The lining of the sinuses are made up of cells with tiny hairs on their surfaces called cilia. Other cells in the lining produce mucus. The mucus traps germs and pollutants and the cilia push the mucus out through narrow sinus openings into the nose. When the sinuses become inflamed or infected, the mucus thickens and clogs the openings to one or more sinuses. Fluid builds up inside the sinuses causing increased pressure. Also bacteria can become trapped, multiply and infect the lining. This is sinusitis. Prevention There are some measures you can take to decrease your risk of developing sinusitis. If you smoke cigarettes, you should quit. The smoke can irritate nasal passageways and increase the likelihood of infection. Nasal allergies can trigger sinus infections, too. By identifying the allergen (the substance causing the allergic reaction) and avoiding it, you can help prevent sinusitis. If you have congestion from a cold or allergies, the following may help to reduce the risk of developing sinusitis: Drink lots of water. This thins nasal secretions and keeps mucous membranes moist. Use steam to soothe nasal passages. Breathe deeply while standing in a hot shower, or inhale the vapor from a basin filled with hot water while holding a towel over your head. Avoid blowing your nose with great force, which can push bacteria into the sinuses. Some doctors advise periodic home nasal washings to clear secretions. This may help prevent, and also treat, sinus infections. Treatment Many sinus infections improve without treatment. However, several medications may speed recovery and reduce the chance that an infection will become chronic. Decongestants - Congestion often triggers sinus infections, and decongestants can open the sinuses and allow them to drain. Several are available: Pseudoephedrine (Sudafed) is available without prescription, alone or in combination with other medications in multi-symptom cold and sinus remedies. Pseudoephedrine can cause insomnia, racing pulse and jitteriness. Do not use if you have high blood pressure or a heart condition. Phenylephrine (such as Sudafed PE) is an alternative cdeg-xgb-zolnxsw oral decongestant. If you take products containing oral phenylephrine, check with the pharmacist to be certain there is no interaction with other medications you take. Oxymetazoline (Afduglas Dristan and others) and phenylephrine (Flaco-Synephrine and others) are found in nasal sprays. They are effective and may be less likely to cause the side effects seen with pseudoephedrine. However, using a nasal decongestant for more than three days can cause worse symptoms when you stop the medication. This is called the rebound effect. Antihistamines - These medications help to relieve the symptoms of nasal allergies that lead to inflammation and infections. However, some doctors advise against using antihistamines during a sinus infection because they can cause excessive drying and slow the drainage process. Rgia-lcl-qnmwrly antihistamines include diphenhydramine (Benadryl and others), chlorpheniramine (Chlor-Trimeton and others) and loratadine (Claritin). Fexofenadine (Gerri) and cetrizine (Zyrtec) are available by prescription. Nasal steroids - Anti-inflammatory sprays such as mometasone (Nasonex) and fluticasone (Flonase), both available by prescription, reduce swelling of nasal membranes. Like antihistamines, nasal steroids can be most useful for those who have nasal allergies. Nasal steroids tend to produce less drying than antihistamines. Unlike nasal decongestants, nasal steroids can be used for prolonged periods. Saline nasal sprays - These salt-water sprays are safe to use and can provide some relief by adding moisture to the nasal passages, thinning mucus secretions and helping to flush out any bacteria that may be present. Pain relievers - Acetaminophen (Tylenol), ibuprofen (Advil, Motrin and others) or naproxen (Aleve) can be taken sinus pain. Antibiotics - Your doctor may prescribe an antibiotic if he or she suspects that a bacterial infection is causing your sinusitis. If you start taking an antibiotic, complete the entire course so that the infection is completely killed off. Not all cases of sinusitis require antibiotic treatment: Talk with your doctor about whether an antibiotic is right for you. Keep in mind that antibiotics can cause side effects, such as allergic reactions, rash and diarrhea. In addition, overusing antibiotics eventually leads to the spread of bacteria that no longer can be killed by the most commonly prescribed antibiotics. When To Call A Professional Contact a doctor if you experience facial pain along with a headache and fever, cold symptoms that last longer than seven to 10 days, or persistent green discharge from the nose. If your symptoms don't improve within a week of beginning treatment, call your doctor. Call sooner if symptoms are getting worse. If you have repeated bouts of acute sinusitis, you may have allergies or another treatable cause of sinus congestion. Ask your doctor for advice. [facility] Medical History Rosacea Varicose veins of bilateral lower extremities with pain Anemia Hidradenitis suppurativa Primary osteoarthritis of right hip Chronic hip pain, bilateral Annual visit for general adult medical examination with abnormal findings Diverticulosis History of small bowel obstruction Folliculitis Type 2 diabetes mellitus without complication, without long-term current use of insulin Morbid obesity Traumatic brain injury Fatty liver Chronic GERD Essential hypertension DARIELA (obstructive sleep apnea) Narcolepsy Dyslipidemia Surgical History History of sleeve gastrectomy History of colonoscopy History of hernia repair History of carpal tunnel release of both wrists Family History Father Diabetes mellitus HTN (hypertension) Mental health disorder Mother Diabetes mellitus HTN (hypertension) Son Autism Daughter Glioblastoma multiforme Maternal Grandfather Cancer of prostate Brother No problems noted. Sister No problems noted. Son No problems noted. Social History Housing: House Alcohol intake: former Patient Tobacco Use Status: Never used Tobacco e-Cigarette/Vaping Use: Never Used service: No Current occupational status: unemployed Cognitive needs: No Hearing needs: No Vision needs: No Assessment & Plan Assessment & Plan (1) Acute bacterial sinusitis: Code(s): J01.90 - Acute sinusitis, unspecified; B96.89 - Other specified bacterial agents as the cause of diseases classified elsewhere Plan: . Plan . Medications: New amoxicillin-pot clavulanate 875-125 mg 1 tab PO BID 7 days 14 tabs 0RF Patient Instructions: Patient reports that she can take Augmentin despite a listed Keflex allergy. Coding Level of Care Code Est Pt Level 4 (54960) Diagnoses Acute bacterial sinusitis J01.90; B96.89
== END 2024-02-01 13:50 | disposition home or self-care (01) ==
PROVIDERS: PCP Internal Medicine; Visit Provider Nurse Practitioner Family
DX: J01.90 Acute sinusitis, unspecified (principal); B96.89 Other specified bacterial agents as the cause of diseases classified elsewhere

== ENCOUNTER → 2024-02-01 09:01 | Outpatient (BNVA) | payer OTHER, SELFPAY | PROVIDERS: PCP Internal Medicine; Visit Provider Nurse Practitioner Family | DX: J01.90 Acute sinusitis, unspecified (principal); B96.89 Other specified bacterial agents as the cause of diseases classified elsewhere | CPT/HCPCS: 99212 ==

== ENCOUNTER 2024-02-26 07:09 | Outpatient (REF) | payer OTHER, SELFPAY ==
[2024-02-26 08:16] LABS: Blood Urea Nitrogen 23 mg/dL (9-16); Estimated Glomerular Filt Rate > 60
== END 2024-02-26 07:10 | disposition home or self-care (01) ==
LOC: HO.LAB 07:09
PROVIDERS: Visit Provider Radiology Vascular & Interventional Radiology
DX: R79.9 Abnormal finding of blood chemistry, unspecified (principal); R94.4 Abnormal results of kidney function studies
CPT/HCPCS: 36415; 82565; 84520

== ENCOUNTER 2024-03-27 16:30 | Outpatient (AMB) | payer OTHER, SELFPAY ==
--- NOTE | 2024-03-27 16:42 | AM.OFFVISNUR ---
Intake Visit Reasons: flu shot Allergies cephalexin [From KEFLEX] Allergy (Unknown, Verified 02/01/24 09:15) ANGIOEDEMA contrast dyes Allergy (Unknown, Verified 02/01/24 09:15) tongue numbness, headache, airway involvement, tongue numbness, headache, airway involvement kiwi [KIWI] Allergy (Unknown, Verified 02/01/24 09:15) ANAPHYLAXIS Sulfa (Sulfonamide Antibiotics) [SULFA (SULFONAMIDE ANTIBIOTICS)] Allergy (Unknown, Verified 02/01/24 09:15) anaphylaxis, diarrhea naproxen [Naprosyn] Adverse Reaction (Unknown, Verified 02/01/24 09:15) vomiting nitrofurantoin [Macrobid] Adverse Reaction (Unknown, Verified 02/01/24 09:15) dizziness oxycodone [Percocet] Adverse Reaction (Unknown, Verified 02/01/24 09:15) vomiting sulfamethoxazole Adverse Reaction (Unknown, Verified 02/01/24 09:15) diarrhea Office Procedures Flu Questionnaire Does the patient have a severe egg allergy?: No Does the patient have severe life threatening allergies?: No Does the patient have a fever or illness today?: No Has the patient ever had Guillain-Melrose Syndrome?: No Has the patient ever had any past reaction to a flu shot?: No Immunizations Fluarix Triv (PF) 45 mcg (15 mcg x 3)/0.5 mL IM syringe [facility] Location[facility] Administered by: Jeri Medina RN on 03/27/24 16:43 Dose Route Admin Location Dispensed Lot Number Expiration Date [facility] [place] Academic Program Specialist 0.5 mL IM Left Deltoid 0.5 mL [id number] 10/19/24 14425-555-29 [place] VIS Given Date VIS Provided VIS Publication Date 03/27/24 Single Vaccine 20 Eligibility Eligibility Date Funding Source Not [facility] Eligible 03/27/24 Private Assessment & Plan Assessment & Plan Orders: Orders Influenza [id number] Immunization Today Z23 - Encounter for immunization Medications: New Fluarix Triv (PF) (flu vacc [id number] 6mos up(PF)) 0.5 mL IM ONCE 0.5 mL 0RF NS Z23 - Encounter for immunization
--- OUTSIDE RECORDS SUMMARY | 2024-04-01 11:23 | XMS_ITS | Continuity of Care Document ---
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 Name Role Phone Isidro LOPEZ, RVT, RPVI, Jef Unavailable U navailable Allergies, Adverse Reactions, Alerts Substance Reaction Status Criticality CEPHALEXIN MONOHYDRATE Active No In formation Procedures Procedure Date Office/Outpt E&M Established 15 Mins- CT & [place] Duplex Scan-extrem Veins; Comp- CT & [place] Duplex Scan-extrem Veins; Uni/ CT & [place] O ct- Surgical Stockings Mediven Leggings - Inj Scleros Solut; Mx Veins 1- CT & MA S Ultrason Guidan Needle Bx-rad- CT & MA S Duplex Scan-extrem Veins; Uni/ CT & MA S Endovenous Rf, 1st Vein- CT & MA 2023 Surgical Stockings Mediven Leggings - Endovenous Laser, 1st Vein- CT & MA Endovenous Laser, 1st Vein- CT & [place] Duplex Scan-extrem Veins; Uni/ CT & MA S ep Inj Scleros Solut; Mx Veins 1- CT & MA S ep Ultrason Guidan Needle Bx-rad- CT & MA S Duplex Scan-extrem Veins; Uni/ CT & MA S Endovenous Rf, 1st Vein- CT & MA 2023 Endovenous Rf, 1st Vein- CT & MA 2023 18-30mmHg Waist/panty length gradient co mpression Offic Cons New/estab Mod-hi 80- CT & [place] Duplex Scan-extrem Veins; Comp- CT & [place] Advance Directives Directive Yes / No Effective Date File Name No Information Encounters Encounter Description Practice Location Reason(s) For Visit Diagnoses Date Provider Providers Copied on Encounter [facility] MD MUÑOZ, [address] [place] [address] Dr Garcia [id number] aquino [place], [id number], [place] tel:[phone] [facility] [place] No Information 4 Isidro LOPEZ RVT, GABRIEL Fuchs. [address] [place] [address], [facility] [place], [id number] , [place]. tel:[phone] Office/Outpt E&M Established 15 Mins- CT & [place] [facility] MD MUÑOZ, [address] [place] [address] Dr Garcia 1000SuQueta aquino [place], [id number], [place] tel:[phone] [facility] - [place] Pruritus, unspecifiedLoca lized edemaCramp and spasmRestless legs syndromeVenous insufficiency (chronic) (peripheral) Jan- 4 Isidro LOPEZ RVT, RPVI Robert. [address] [place] [address], [place]ush [place], [id number] , [place]. tel:[phone] Referring Provider: Sabrina Carr MD Jose, [address] [facility] [address] [facility], [place], [address]. tel:[phone] [facility] MD MUÑOZ, [address] [place] [address] Dr Garcia 1000SuQueta aquino MD, [id number], [place] tel:[phone] [facility] [place] Varicose veins of bilateral lower extremities with pain Oct-3 4 Isidro LOPEZ RVT, RPVI Robert. [address] [facility], [address], [facility] [place], [id number] , [place]. tel:[phone] Referring Provider: Sabrina Garcia, [address] [place] [address], [address]. tel:[phone] [facility] MD MUÑOZ, [address] [place] [address] Dr Garcia 1000Suite 1000Queta [place], [id number], [place] tel:[phone] CVR - [facility] Encounter for follow-up examination after completed treatment for conditions other than malignant nePain in left leg Oct-0 4 Isidro LOPEZ RVT, GABRIEL Fuchs. [address] [place] [address], [facility] [place], [id number] , [place]. [phone] Referring Provider: Sabrina Garcia, [address] [place] [address], [place], [address]. tel:[phone] [facility] MD MUÑOZ, [address] [place] [address] Dr Garcia 1000Suite 1000Queta [place], [id number], [place] tel:[phone] CVR - [facility] Chronic venous hypertension (idiopathic) without complications of bilateral lower extremity Sep-2 4 Isidro LOPEZ RVT, GABRIEL Fuchs. [facility] [facility], [facility] [address], [facility] [place], [id number] , [place]. [phone] [facility] MD MUÑOZ, [address] [place] [address] Dr Garcia 1000Suite 1000Queta [place], [id number], [place] tel:[phone] CVR - [facility] Varicose veins of left lower extremity with other complications Sep-2 4 Marie Brand . [address] [facility], [address], [facility] [place], [id number] , [place]. tel:[phone] Referring Provider: Sabrina Garcia, [address] [place] [address], [place], [address]. tel:[phone] [facility] MD MUÑOZ, [address] [place] [address] Dr Garcia 1000Suite [place] Dunn [place], [id number], [place] tel:[phone] [facility] - [place] Encounter for follow-up examination after completed treatment for conditions other than malignant nePain in left leg Sep-2 4 Isidro LOPEZ RVT, GABRIEL Fuchs. [address] [place] [address], [address], [place], [place], [id number] , [place]. [phone] Referring Provider: Sabrina Carr MD Jose, [address] [place] [address], [place], [address]. tel:[phone] [facility] MD MUÑOZ, [address] [place] [address] Dr Garcia 1000Suite [place] Dunn [place], [id number], [place] tel:[phone] [place] Varicose veins of left lower extremity with other complications Sep-2 4 Isidro LOPEZ RVT, GABRIEL Fuchs. [address] [place] [address], [place], [place], [id number] , [place]. [phone] Referring Provider: Sabrina Carr MD Jose, [address] [place] [address], [place], [address]. tel:[phone] [facility] MD MUÑOZ, [address] [place] [address] Dr Garcia 1000Suite [place], [id number], [place] tel:[phone] [facility] Venous insufficiency (chronic) (peripheral) Sep-1 4 Isidro LOPEZ RVT, GABRIEL Fuchs. [address] [place] [address], [address], [place], [place], [id number] , [place]. tel:[phone] [facility] MD MUÑOZ, [address] [place] [address] Dr Garcia 1000Suite [place] MD, [id number], [place] tel:[phone] [facility] Varicose veins of left lower extremity with other complications Sep-1 4 Isidro LOPEZ RVT, RPVI Robert. [address] [facility], Suite [facility], [place], [place], [id number] , [place]. tel:[phone] Referring Provider: Sabrina Carr MD Jose, [address] [place] [address], [address]. tel:[phone] [facility] MD MUÑOZ, [address] [place] [address] Dr Garcia 1000Suite [place], [id number], [place] tel:[phone] [facility] [place] Varicose veins of left lower extremity with other complications Sep- 4 Isidro LOPEZ RVT, RPVI Robert. [address] [address], [place], [place], [id number] , [place]. tel:[phone] Referring Provider: Sabrina Garcia, [address] [place] [address], [place], [address]. tel:[phone] [facility] MD MUÑOZ, [address] [place] [address] Dr Garcia 1000Suite Queta [place], [id number], [place] tel:[phone] [facility] [place] Encounter for follow-up examination after completed treatment for conditions other than malignant neoplasmVaricos e veins of right lower extremity with pain Sep- 4 Isidro LOPZE RVT, RPVI Robert. [address] [facility], [place] [address], [place], [place], [id number] , [place]. tel:[phone] Referring Provider: Sabrina Garcia, [address] [place] [address], [place], [address]. tel:[phone] [facility] MD MUÑOZ, [address] [place] [address] Dr Garcia 1000Suite Qu[place] MD, [id number], [place] tel:[phone] [facility] [place] Varicose veins of right lower extremity with inflammation Sep- 4 Isidro LOPEZ RVT, RPVI Robert. [address] [address], [place], [place], [id number] , [place]. tel:[phone] Referring Provider: Sabrina Carr MD Jose, [address] [place] [address], [place], [address]. tel:[phone] [facility], [address] [place] [address] Dr Garcia 1000Suite 1000Queta [place], [id number], [place] tel:[phone] [facility] Encounter for follow-up examination after completed treatment for conditions other than malignant neoplasmVaricos e veins of right lower extremity with pain Sep-1 4 Isidro LOPEZ RVT, GABRIEL Fuchs. [address] [place] [address], [place], [place], [id number] , [place]. [phone] Referring Provider: Sabrina Carr MD Jose, [address] [place] [address], [place], [address]. tel:[phone] [facility], [address] [place] [address] Dr Garcia 1000Suite [place], [id number], [place] tel:[phone] [facility] Chronic venous hypertension (idiopathic) with inflammation of right lower extremity Sep-0 4 Isidro LOPEZ RVT, GABRIEL Fuchs. [address] [place] [address], [place], [place], [id number] , [place]. tel:[phone] Referring Provider: Sabrina Carr MD Jose, [address] [place] [address], [place], [address]. tel:[phone] [facility], [address] [place] [address] Dr Garcia 1000Suite 1000Queta [place], [id number], [place] tel:[phone] [facility] No Information Sep-0 4 Isidro LOPEZ RVT, GABRIEL Fuchs. [address] [place] [address], Suite [facility], [place], [place], [id number] , [place]. tel:[phone] [facility], [address] [place] [address] Dr Garcia 1000Suite 1000Queta [place], [id number], [place] tel:[phone] [facility] Varicose veins of right lower extremity with other complications Sep-0 3- 4 Isidro LOPEZ RVT, GABRIEL Fuchs. [address] [facility], [address], [place], [place], [id number] , [place]. [phone] Referring Provider: Sabrina Carr MD Jose, [address] [place] [address] [address] [facility], [place], [address]. tel:[phone] [facility] MD MUÑOZ, [address] [place] [address] Dr Garcia 1000Suite Qu[place], [id number], [place] tel:[phone] [facility] Varicose veins of bilateral lower extremities with other complications Apr-0 8 4 Isidro LOPEZ RVT, GABRIEL Fuchs. [address] [facility], [address], [place], [place], [id number] , [place]. [phone] Referring Provider: Jef Felix MD, RVT, GABRIEL, [address] [place] [address] [address], [place], [address] . tel:[phone] Offic Cons New/estab Mod-hi 80- CT & [place] [facility], [address] [place] [address] Dr Garcia 1000Suite Queta [place] MD, [id number], [place] tel:[phone] [facility] Varicose veins of bilateral lower extremities with other complicationsPa in in right lower legPain in left lower legPain in right legRestless legs syndromePruritu s, unspecifiedPain in left legCramp and spasmLocalized edema Apr-0 5 4 Isidro LOPEZ RVT, GABRIEL Fuchs. [address] [facility], [address], [place], [place], [id number] , [place]. [phone] [facility] MD MUÑOZ, [address] [place] [address] Dr Garcia 1000Suite Queta [place], [id number], [place] tel:[phone] [facility] - [place] Chronic venous hypertension (idiopathic) with other complications of bilateral lower extremity Isidro LOPEZ, RVT, RPHARJINDER Fuchs. [address] [facility], [address], [place], [place], [id number] , [place]. tel:[phone] Referring Provider: Sabrina Carr MD Jose, [address] [place] [address] [address] [facility], [place], [address]. tel:[phone] Family History Family Member Type Diagnosis Age At Onset No Information Payers Payer name Insurance type Covered libertarian ID Authormyra bourne(s) [facility] [id number] Social History Type Description Quantity Date Captured Comments Sex Female Smoking Status No Information Chief Complaint And Reason For Visit No Information Reason For Referral Reason For Referral No Information Plan Of Treatment Date Type Action Status Goal Diet education completed Goal Diet education completed Referral Ordered: Weight management: Referral to physician timeframe: 3 Months (related to Body mass index (BMI) 40.0-44.9, adult) ordered Referral Ordered: Weight management: Referral to physician timeframe: 3 Months (related to Body mass index (BMI) 40.0-44.9, adult) ordered History Of Present Illness Encounter Date Complaint History Of Prese nt Illness No Information Functional Status Date Functional Assessmen t No Information Instructions Date Instruction Additional Infor mation Compression stocking usage as conservative measure Related to Localized edema Patient education booklet given Related to Localized edema Lifestyle education Related to B matt mass index (BMI) 40.0-44.9, adult Giving Encouragement to exercise Related to Body mass index (BMI) 40.0-44.9, adult Diet education Related to Body mass index (BMI) 40.0-44.9, adult Lifestyle education Related to B matt mass index (BMI) 40.0-44.9, adult Giving Encouragement to exercise Related to Body mass index (BMI) 40.0-44.9, adult Diet education Related to Body mass index (BMI) 40.0-44.9, adult Pre and post instruc tions reviewed and provided Related to Varicose veins of bilateral lower extremities with other complications Patient education booklet given Related to Varicose veins of bilateral lower extremities with other complications Assessments Type Assessment Date No Information Patient Care Teams Name Effective Dates (start - stop) Status Members No Information
== END 2024-03-27 16:44 | disposition home or self-care (01) ==
LOC: HO.HMCFM 16:30
PROVIDERS: PCP Internal Medicine; Visit Provider Internal Medicine
DX: Z23 Encounter for immunization (principal)

== ENCOUNTER → 2024-03-27 16:30 | Outpatient (BNVA) | payer OTHER, SELFPAY | PROVIDERS: PCP Internal Medicine; Visit Provider Internal Medicine | DX: Z23 Encounter for immunization (principal) | CPT/HCPCS: 90471; 90656; 99211 ==

== ENCOUNTER 2024-07-17 16:02 | Outpatient (REF) | payer OTHER, SELFPAY ==
[2024-07-18 09:58] LABS: Adenovirus F 40/41 Not Detected (Not Detect.); Astrovirus Not Detected (Not Detect.); Campylobacter Not Detected (Not Detect.); Cryptosporidium Not Detected (Not Detect.); Cyclospora cayetanensis Not Detected (Not Detect.); E. coli EAEC Not Detected (Not Detect.); E. coli EPEC Not Detected (Not Detect.); E. coli ETEC Not Detected (Not Detect.); E. coli STEC Not Detected (Not Detect.); Entamoeba histolytica Not Detected (Not Detect.); Giardia lamblia Not Detected (Not Detect.); Norovirus GI/GII Not Detected (Not Detect.); Plesiomonas shigelloides Not Detected (Not Detect.); Rotavirus A Not Detected (Not Detect.); Salmonella Not Detected (Not Detect.); Sapovirus Not Detected (Not Detect.); Shigella sp./EIEC Not Detected (Not Detect.); Vibrio Not Detected (Not Detect.); Vibrio Cholerae Not Detected (Not Detect.); Yersinia enterocolitica Not Detected (Not Detect.)
== END 2024-07-17 16:03 | disposition home or self-care (01) ==
LOC: HO.LNP 16:02
PROVIDERS: Visit Provider Internal Medicine
DX: R19.7 Diarrhea, unspecified (principal); Z86.19 Personal history of other infectious and parasitic diseases
CPT/HCPCS: 87507

== ENCOUNTER 2024-07-31 11:53 | Outpatient (AMB) | payer OTHER, SELFPAY ==
[2024-07-31 12:22] VITALS: BP 122/84; PULSE 65; TEMP 36.9; O2SAT 98; BMI 37.0
--- NOTE | 2024-07-31 12:26 | MHC.OFFWIV ---
Intake Vital Signs 07/31/24 12:22 Height 5 ft 5 in Weight 222 lb 4 oz BMI 37.0 BP 122/84 Blood Pressure Location Lt brachial Pulse 65 Pulse Source Pulse Oximeter Temp 98.4 F Temp Source Oral Pulse Oximetry (%) 98 Oxygen Delivery Method Room Air Intake Visit Reasons: EP Swollen Glands Intake Note: Pt presents to the office today for c/o swollen glands, sore throat, headache, and tiredness x1 week. Patient Tobacco Use Status: Never used Tobacco Allergies cephalexin [From KEFLEX] Allergy (Unknown, Verified 07/31/24 12:22) ANGIOEDEMA contrast dyes Allergy (Unknown, Verified 07/31/24 12:22) tongue numbness, headache, airway involvement, tongue numbness, headache, airway involvement kiwi [KIWI] Allergy (Unknown, Verified 07/31/24 12:22) ANAPHYLAXIS Sulfa (Sulfonamide Antibiotics) [SULFA (SULFONAMIDE ANTIBIOTICS)] Allergy (Unknown, Verified 07/31/24 12:22) anaphylaxis, diarrhea naproxen [Naprosyn] Adverse Reaction (Unknown, Verified 07/31/24 12:22) vomiting nitrofurantoin [Macrobid] Adverse Reaction (Unknown, Verified 07/31/24 12:22) dizziness oxycodone [Percocet] Adverse Reaction (Unknown, Verified 07/31/24 12:22) vomiting sulfamethoxazole Adverse Reaction (Unknown, Verified 07/31/24 12:22) diarrhea HPI EP Swollen Glands HPI Details 54-year-old female patient presents to the walk-in clinic today with report of sore throat, headache, fatigue for the last week. Reports partner was sick with similar symptoms. She states it feels like strep throat. Her voice has been muffled and she has had pain with any eating/drinking. [facility] Medical History Rosacea Varicose veins of bilateral lower extremities with pain Anemia Hidradenitis suppurativa Primary osteoarthritis of right hip Chronic hip pain, bilateral Annual visit for general adult medical examination with abnormal findings Diverticulosis History of small bowel obstruction Folliculitis Type 2 diabetes mellitus without complication, without long-term current use of insulin Morbid obesity Traumatic brain injury Fatty liver Chronic GERD Essential hypertension DARIELA (obstructive sleep apnea) Narcolepsy Dyslipidemia Surgical History History of sleeve gastrectomy History of colonoscopy History of hernia repair History of carpal tunnel release of both wrists Family History Father Diabetes mellitus HTN (hypertension) Mental health disorder Mother Diabetes mellitus HTN (hypertension) Son Autism Daughter Glioblastoma multiforme Maternal Grandfather Cancer of prostate Brother No problems noted. Sister No problems noted. Son No problems noted. Social History Housing: House Alcohol intake: former Patient Tobacco Use Status: Never used Tobacco e-Cigarette/Vaping Use: Never Used service: No Current occupational status: unemployed Cognitive needs: No Hearing needs: No Vision needs: No Review of Systems Const All systems reviewed & are unremarkable except as noted in HPI and below Physical Exam Vital Signs: Last Vital Signs Temp 98.4 F 07/31/24 12:22 Pulse 65 07/31/24 12:22 BP 122/84 07/31/24 12:22 Pulse Ox 98 07/31/24 12:22 Oxygen Delivery Method Room Air 07/31/24 12:22 BMI result Body Mass Index 37.0 Const General: cooperative, healthy appearing and no acute distress HEENT Head: Yes normal to inspection Ears: hearing grossly normal bilaterally General nose exam: Normal external nose present Face and sinus: Yes normal facial exam Mouth: Normal oral and palatal mucosa present Throat: Yes posterior oropharynx abnormal (Tonsillar hypertrophy, erythema, exudate) Neck Neck: Yes lymphadenopathy Resp Effort & Inspection: normal respiratory effort Auscultation: clear to auscultation bilaterally Cardio Rate: regular rate Rhythm: regular rhythm Skin General skin exam: no rashes or lesions noted Extrem General: Yes no clubbing, cyanosis or edema Psych Appearance: grossly normal Mental Status: mental status grossly normal Speech and movement: Normal speech and movement present Results AMB Rapid Strep AMB Rapid Strep Negative Last Edit by Aspen Conteh CMA on 07/31/24 12:43 Results Reviewed Results Reviewed: Laboratory Last Values Strep Scn Rapid Clinic Negative 07/31/24 12:40 Assessment & Plan Assessment & Plan (1) Strep pharyngitis: Code(s): J02.0 - Streptococcal pharyngitis Plan: Clinically consistent with strep pharyngitis. Will start her on Pen-V t.i.d. 10 days, we reviewed indications, use, possible side effects of this. Encouraged increased hydration, use of cough drops/lozenges, Tylenol/Motrin for comfort. If she does not improve with treatment, she can return to the clinic for further evaluation. She verbalizes understanding and agrees to plan. Orders: Orders AMB Rapid Strep Screen Today Z13.9 - Encounter for screening, unspecified Medications: New penicillin V potassium 500 mg PO TID 10 days 30 tabs 0RF J02.0 - Streptococcal pharyngitis Coding Level of Care Code Est Pt Level 4 (07310) Diagnoses Strep pharyngitis J02.0
--- OUTSIDE RECORDS SUMMARY | 2024-07-31 12:48 | XMS_ITS | Continuity of Care Document ---
Author Organization [facility] Address [address] [place] [address] Phone Care Team Providers Care Medical Geneticist Name Role Phone Isidro LOPEZ, RVT, RPVI, [...] Providers Copied on Encounter [facility] MUÑOZ, [address] [place] [address] Dr Garcia 1000SuQueta aquino [place], [id number], [place] tel:[phone] [place] No Information 4 Isidro LOPEZ RVT, GABRIEL Fuchs. [address] [place] [address], [facility] [place] [place], [id number] , [place]. tel:[phone] Office/Outpt E&M Established 15 Mins- [place] & [place] [facility] MD MUÑOZ, [address] [place] [address] Dr Garcia 1000SuQueta aquino [place], [id number], [place] tel:[phone] CVR - [place] Pruritus, unspecifiedLoca lized edemaCramp and spasmRestless legs syndromeVenous insufficiency (chronic) (peripheral) Jan- 4 Isidro LOPEZ RVT, RPVI Robert. [address] [place] [address], Detroitaayush albarran [place], [id number] , [place]. tel:[phone] Referring Provider: Sabrina Carr MD Jose, [address] [facility] [address], [place], [address]. tel:[phone] [place] [facility] MD MUÑOZ, [address] [place] [address] Dr Garcia 1000SuQueta aquino [place], [id number], [place] tel:[phone] CVR - [place] Varicose veins of bilateral lower extremities with pain Oct-3 4 Isidro LOPEZ RVT, RPVI Robert. [address] [facility], [address], [facility], [id number] , [place]. tel:[phone] Referring Provider: Sabrina Garcia, [address] [place] [address], [address]. tel:[phone] [facility] MUÑOZ, [address] [place] [address] Dr Garcia 1000Suite 1000Queta [place], [id number], [place] tel:[phone] CVR - [facility] Encounter for follow-up examination after completed treatment for conditions other than malignant nePain in left leg Oct-0 4 Isidro LOPEZ RVT, GABRIEL Fuchs. [address] [place] [address] 302, [facility] [place], [id number] , [place]. [phone] Referring Provider: Sabrina Garcia, [address] [place] [address], [place], [address]. tel:[phone] [facility] MUÑOZ, [address] [place] [address] Dr Garcia 1000Suite 1000Queta [place], [id number], [place] tel:[phone] CVR - [facility] Chronic venous hypertension (idiopathic) without complications of bilateral lower extremity Sep-2 4 Isidro LOPEZ RVT, GABRIEL Fuchs. [facility] [facility], [facility] 302, [facility] [place], [id number] , [place]. [phone] [facility] MUÑOZ, [address] [place] [address] Dr Garcia 1000Suite 1000Queta [place], [id number], [place] tel:[phone] CVR - [facility] Varicose veins of left lower extremity with other complications Sep-2 4 Marie Brand . [address] [facility], [address], [facility] [place], [id number] , [place]. tel:[phone] Referring Provider: Sabrina Garcia, [address] [place] [address], [place], [address]. tel:[phone] [facility] MUÑOZ, [address] [place] [address] Dr Garcia 1000Suite Queta Dunn [place], [id number], [place] tel:[phone] [place] Encounter for follow-up examination after completed treatment for conditions other than malignant nePain in left leg Sep-2 4 Isidro LOPEZ RVT, GABRIEL Fuchs. [address] [place] [address], [address], [place], [place], [id number] , [place]. [phone] Referring Provider: Sabrina Carr MD Jose, [address] [place] [address], [place], [address]. tel:[phone] [facility] MD MUÑOZ, [address] [place] [address] Dr Garcia 1000Suite Queta Dunn [place], [id number], [place] tel:[phone] CVR - [place] - [place] Varicose veins of left lower extremity with other complications Sep-2 4 Isidro LOPEZ RVT, GABRIEL Fuchs. [address] [place] [address], [place], [place], [id number] , [place]. [phone] Referring Provider: Sabrina Carr MD Jose, [address] [place] [address], [place], [address]. tel:[phone] [facility] MD MUÑOZ, [address] [place] [address] Dr Garcia 1000Suite Qeuta Dunn MD, [id number], [place] tel:[phone] [place] Venous insufficiency (chronic) (peripheral) Sep-1 4 Isidro LOPEZ RVT, GABRIEL Fuchs. [address] [place] [address], [address], [place], [place], [id number] , [place]. tel:[phone] [facility] MD MUÑOZ, [address] [place] [address] Dr Garcia 1000Suite Queta Dunn MD, [id number], [place] tel:[phone] [place] Varicose veins of left lower extremity with other complications Sep-1 4 Isidro LOPEZ RVT, RPVI Robert. [address] [facility], Suite [facility], [place], [place], [id number] , [place]. tel:[phone] Referring Provider: Sabrina Carr MD Jose, [address] [place] [address], [address]. tel:[phone] [facility] MD MUÑOZ, [address] [place] [address] Dr Garcia 1000Suite Queta Dunn [place], [id number], [place] tel:[phone] [place] Varicose veins of left lower extremity with other complications Sep- 4 Isidro LOPEZ RVT, RPVI Robert. [address] [address], [place], [place], [id number] , [place]. tel:[phone] Referring Provider: Sabrina Garcia, [address] [place] [address], [place], [address]. tel:[phone] [facility] MD MUÑOZ, [address] [place] [address] Dr Garcia 1000Suite Queta Dunn MD, [id number], [place] tel:[phone] [facility] Encounter for follow-up examination after completed treatment for conditions other than malignant neoplasmVaricos e veins of right lower extremity with pain Sep- 4 Isidro LOPEZ RVT, RPVI Robert. [address] [facility], [place] [address], [place], [place], [id number] , [place]. tel:[phone] Referring Provider: Sabrina Garcia, [address] [place] [address], [place], [address]. tel:[phone] [facility] MD MUÑOZ, [address] [place] [address] Dr Garcia 1000Suite Queta Dunn [place], [id number], [place] tel:[phone] [place] Varicose veins of right lower extremity with inflammation Sep- 4 Isidro LOPEZ RVT, RPVI Robert. [address] [address], [place], [place], [id number] , [place]. tel:[phone] Referring Provider: Sabrina Carr MD Jose, [address] [place] [address], [place], [address]. tel:[phone] Kat [facility]ain [facility], [address] [place] [address] Dr Garcia 1000Suite 1000Queta [place], [id number], [place] tel:[phone] [facility] Encounter for follow-up examination after completed treatment for conditions other than malignant neoplasmVaricos e veins of right lower extremity with pain Sep-1 4 Isidro LOPEZ RVT, GABRIEL Fuchs. [address] [place] [address], [place], [place], [id number] , [place]. [phone] Referring Provider: Sabrina Carr MD Jose, [address] [place] [address], [place], [address]. tel:[phone] [facility], [address] [place] [address] Dr Garcia 1000Suite Queta Dunn [place], [id number], [place] tel:[phone] [facility] Chronic venous hypertension (idiopathic) with inflammation of right lower extremity Sep-0 4 Isidro LOPEZ RVT, GABRIEL Fuchs. [address] [place] [address], [place], [place], [id number] , [place]. tel:[phone] Referring Provider: Sabrina Carr MD Jose, [address] [place] [address], [place], [address]. tel:[phone] [facility], [address] [place] [address] Dr Garcia 1000Suite 1000Queta [place], [id number], [place] tel:[phone] [facility] No Information Sep-0 4 Isidro LOPEZ RVT, GABRIEL Fuchs. [address] [place] [address], Suite [facility], [place], [place], [id number] , [place]. tel:[phone] [facility], [address] [place] [address] Dr Garcia 1000Suite 1000Queta [place], [id number], [place] tel:[phone] [place] Varicose veins of right lower extremity with other complications Sep-0 3- 4 Isidro LOPEZ RVT, GABRIEL Fuchs. [address] [facility], [address], [place], [place], [id number] , [place]. [phone] Referring Provider: Sabrina Carr MD Jose, [address] [place] [address] [address] [facility], [place], [address]. tel:[phone] [facility] MD MUÑOZ, [address] [place] [address] Dr Garcia 1000Suite Queta Dunn [place], [id number], [place] tel:[phone] [place] Varicose veins of bilateral lower extremities with other complications Apr-0 8 4 Isidro LOPEZ RVT, GABRIEL Fuchs. [address] [facility], [address], [place], [place], [id number] , [place]. [phone] Referring Provider: Jef Felix MD, RVT, GABRIEL, [address] [place] [address] [address], [place], [address] . tel:[phone] Offic Cons New/estab Mod-hi 80- [place] & [place] [facility], [address] [place] [address] Dr Garcia 1000Suite Queta Dunn MD, [id number], [place] tel:[phone] [place] Varicose veins of bilateral lower extremities with other complicationsPa in in right lower legPain in left lower legPain in right legRestless legs syndromePruritu s, unspecifiedPain in left legCramp and spasmLocalized edema Apr-0 5 4 Isidro LOPEZ RVT, GABRIEL Fuchs. [address] [facility], [address], [place], [place], [id number] , [place]. [phone] [facility] MD MUÑOZ, [address] [place] [address] Dr Garcia 1000Suite Queta Dunn [place], [id number], [place] tel:[phone] CVR - [place] Chronic venous hypertension (idiopathic) with other complications of bilateral lower extremity Isidro LOPEZ, RVT, RPHARJINDER Fuchs. [address] [facility], [address], [place], [place], [id number] , [place]. tel:[phone] Referring Provider: Sabrina Carr MD Jose, [address] [place] [address] [address] [place], [address]. tel:[phone] Family History Family Member Type Diagnosis Age At Onset No Information Payers Payer name Insurance type Covered libertarian ID Authormariana steffen(s) [facility] [id number] 0 Social History Type Description Quantity Date [...] No Information Instructions Date Instruction Additional Infor yayoion Diet education Related to Body mass index (BMI) 40.0-44.9, adult Giving Encouragement to exercise Related to Body mass index (BMI) 40.0-44.9, adult Lifestyle education Related to B matt mass index (BMI) 40.0-44.9, adult Patient education booklet given Related to Localized edema Compression stocking usage as conservative measure Related to Localized edema Diet education Related to Body mass index (BMI) 40.0-44.9, adult Giving Encouragement to exercise Related to Body mass index (BMI) 40.0-44.9, adult Lifestyle education Related to B matt mass index (BMI) 40.0-44.9, adult Patient education booklet given Related to Varicose veins of bilateral lower extremities with other complications Pre and post instruc tions reviewed and provided Related to Varicose veins of bilateral lower extremities with other complications Assessments Type Assessment Date No Information Patient Care Teams Name Effective Dates (start - stop) Status Members No Information
== END 2024-07-31 13:02 | disposition home or self-care (01) ==
PROVIDERS: PCP Internal Medicine; Visit Provider Nurse Practitioner Family
DX: Z13.9 Encounter for screening, unspecified (principal); J02.0 Streptococcal pharyngitis

== ENCOUNTER → 2024-07-31 11:53 | Outpatient (BNVA) | payer OTHER, SELFPAY | PROVIDERS: PCP Internal Medicine; Visit Provider Nurse Practitioner Family | DX: J02.0 Streptococcal pharyngitis (principal) | CPT/HCPCS: 87880; 99212 ==

== ENCOUNTER 2025-01-25 07:28 | Outpatient (REF) | payer OTHER, SELFPAY ==
--- OUTSIDE RECORDS SUMMARY | 2025-01-25 07:30 | XMS_ITS ---
Author Organization [facility] Care Team Providers Care Sales Store Checker Name Role Phone Gayle Gallegos Unavailable Unavailable Lyndon Graham Unavailable Unavailable Mita Walls Unavailable Unavailable Allergies and adverse reactions Code CodeSystem Substance Reaction Severity StartDate Concern Status SULFA DRUGS Mild 09/25/2023 active Percocet Unknown 09/25/2023 active 7258 RXNORM Naprosyn Mild 09/25/2023 active 7454 RXNORM Macrobid Unknown 09/25/[address] Kiwi Mild 09/25/2023 active 2231 RXNORM Keflex Unknown 09/25/2023 active Contrast Dye Unknown 09/25/2023 active Bactrim Moderate 09/25/2023 active Care Team Name Role Address Phone Organization Elen Gallegos PCP [address] [place] [address], [place], [address], [place] (Office): : [facility] 09/25/2023 - 10/03/2023 Lyndon Graham [facility] [place], [address], [place] (Office): [facility] 09/25/2023 - 10/03/2023 Mita Walls [address] [place] [address], [address], [facility] (Office): : [facility] 09/25/2023 - 10/03/2023 Immunizations Immunization Status Vaccine Details Vaccine Code CodeSystem Date Notes Pneumococcal Polysaccharide Vaccine (PPSV23) completed pneumococcal polysaccharide vaccine, 23 valent 33 CVX created date: 09/27/2023 administere d date: 05/09/2020 Pneumococcal Polysaccharide Vaccine (PPSV23) completed pneumococcal polysaccharide vaccine, 23 valent 33 CVX created date: 09/26/2023 consent date: 09/26/2023 administere d date: 04/28/2018 Prevnar 20 Pneumococcal conjugate (PCV20) cancelled Pneumococcal conjugate vaccine 20-valent (PCV20), polysaccharide [id number] conjugate, adjuvant, preservative free 216 CVX created date: 09/26/2023 consent date: 09/26/2023 RSV, recombinant, protein subunit RSVpreF, adjuvant rec cancelled Respiratory syncytial virus (RSV), vaccine, recombinant, protein subunit RSV prefusion F, adjuvant reconstituted, 0.5 mL, preservative free 303 CVX created date: 09/26/2023 consent date: 09/26/2023 Influenza, high dose seasonal completed Influenza, high-dose, split virus, trivalent, injectable, preservative free 135 CVX created date: 09/26/2023 consent date: 09/26/2023 administere d date: 05/01/2022 COVID-19 vaccine, vector-nr, [id number], PF, 0.5 mL cancelled SARS-COV-2 (COVID-19) vaccine, mRNA, spike protein, LNP, preservative free, jaron-sucrose, 30 mcg/0.3 mL dose 309 CVX created date: 09/26/2023 consent date: 09/26/2023 COVID-19, mRNA, LNP-S, PF, 30 mcg/0.3 mL dose, jaron-sucrose completed SARS-COV-2 (COVID-19) vaccine, mRNA, spike protein, LNP, preservative free, 30 mcg/0.3mL dose, jaron-sucrose formulation Mfg: Moderna 217 CVX created date: 09/27/2023 administere d date: 05/12/2021 COVID-19, mRNA, LNP-S, PF, 30 mcg/0.3 mL dose, jaron-sucrose completed SARS-COV-2 (COVID-19) vaccine, mRNA, spike protein, LNP, preservative free, 30 mcg/0.3mL dose, jaron-sucrose formulation Mfg: Moderna 217 CVX created date: 09/27/2023 administere d date: 07/19/2020 COVID-19, mRNA, LNP-S, PF, 30 mcg/0.3 mL dose, jaron-sucrose completed SARS-COV-2 (COVID-19) vaccine, mRNA, spike protein, LNP, preservative free, 30 mcg/0.3mL dose, jaron-sucrose formulation Mfg: Moderena 217 CVX created date: 09/27/2023 administere d date: 06/21/2020 Mental Status Section Date Assessment Total Score Description 10/03/2023 BIMS 15 cognitively int act CAM 0 No delirium ind icated PHQ-9 01 minimal depress ion 10/01/2023 BIMS 15 cognitively int act CAM 0 No delirium ind icated PHQ-9 01 minimal depress ion Insurance Providers Problems Problem # Description Date of onset Resolved Date Code CodeSystem Concern Status 1 ABSENCE EPILEPTIC SYNDROME, NOT INTRACTABLE, WITHOUT STATUS EPILEPTICUS 09/25/[address] active 2 AFTERCARE FOLLOWING EXPLANTATION OF HIP JOINT PROSTHESIS 09/25/[address] active 3 AFTERCARE FOLLOWING JOINT REPLACEMENT SURGERY 09/25/[address] active 4 ANXIETY DISORDER, UNSPECIFIED 09/25/[address] active 5 ATTENTION-DEFICIT HYPERACTIVITY DISORDER, UNSPECIFIED TYPE 09/25/[address] active 6 CUTANEOUS ABSCESS OF LEFT LOWER LIMB 09/25/[address] active 7 DYSPHAGIA, UNSPECIFIED 09/25/[address] active 8 GASTRO-ESOPHAGEAL REFLUX DISEASE WITHOUT ESOPHAGITIS 09/25/[address] active 9 IRRITABLE BOWEL SYNDROME, UNSPECIFIED 09/25/[address] active 10 MUSCLE WEAKNESS (GENERALIZED) 09/25/[address] active 11 NEED FOR ASSISTANCE WITH PERSONAL CARE 09/25/[address] active 12 OBSTRUCTIVE SLEEP APNEA (ADULT) (PEDIATRIC) 09/25/[address] active 13 OTHER OBESITY DUE TO EXCESS CALORIES 09/25/[address] active 14 PRESENCE OF RIGHT ARTIFICIAL HIP JOINT 09/25/[address] active 15 UNILATERAL PRIMARY OSTEOARTHRITIS, RIGHT HIP 09/25/[address] active 16 UNSPECIFIED ASTHMA, UNCOMPLICATED 09/25/[address] active 17 UNSTEADINESS ON FEET 09/25/[address] active Reason for Referral No Reasons for Referral Entered Social History Social History Observation Description Start Date End Date Code Code System Current Smoking Status Tobacco smoking consumption unknown 065940627 SNOMED CT Sex Assigned At Female 1970 06153-1 [facility] Gender Identity Sexual Orientation Vital Signs Code Code System Vitals Name Values and Units Timing Information 61625-7 [facility] Pain Level Value=0.0 10/03/2023 8462-4 [facility] Blood Pressure-Diastolic Value=66 Un its=mmHg 10/03/2023 8480-6 [facility] Blood Pressure-Systolic Torjb=021 Un its=mmHg 10/03/2023 8310-5 [facility] Body Temperature Value=98.4 Units= F 10/03/2023 8867-4 [facility] Heart rate Value=66.0 Units=/min 9279-1 [facility] Respiratory Rate Value=16.0 Units=/m in 10/03/2023 56884-2 [facility] O2 % BldC Oximetry Value=96.0 Units= % 10/03/2023 53405-8 [facility] Weight Snjip=402.0 Units=Lbs 03/2024 8302-2 [facility] Height Value=64.0 Units=Inches 09/25/2023
--- OUTSIDE RECORDS SUMMARY | 2025-01-25 07:30 | XMS_ITS | Clinical Summary ---
Author Organization [facility] Address [address] [place] [address] Care Team Providers Care Hotel Maintenance Technician Name Role Phone Sabrina Carr MD Primary Care Provider Allergies Active Allergy Reactions Criticality Noted Date Comments Kiwi Unknown 12/08/2024 Oxycodone-Acetaminophen Blood pressure, low 10/2023 Medications sertraline (ZOLOFT) 50 mg tablet Take 75 mg by mouth once a day. 07/16/[address] (PROTONIX) 20 mg tablet Take 1 tablet (20 mg total) by mouth once a day. 20 tablet 12/08/2024 Active Encounters Date Type Department Care Team Description 12/08/2024 11:33 AM EDT - 12/08/2024 3:04 PM EDT [facility] Emergency Department [address] [place] [id number] Moi Garg MD Pain of upper abdomen (Primary Dx) Discharge Disposition: Home or Self Care (01) from Last 3 Months Social History Tobacco Use Types Packs/Day Years Used Date Smoking Tobacco: Never Smokeless Tobacco: Never Tobacco Cessation:Counseling Given: Not Answered Alcohol Use Standard Drinks/Week Comments Yes 0 (1 standard drink = 0.6 oz pur e alcohol) Very rare Comments No Sex and Gender Information Value Date Recorded Sex Assigned at Female 12/08/2024 10:34 AM EDT Legal Sex Female 10:30 AM EDT Gender Identity Not on file Sexual Orientation Not on file Last Filed Vital Signs Vital Sign Reading Time Taken Comments Blood Pressure 122/80 12/08/2024 2:00 PM EDT Pulse 50 12/08/2024 2:00 PM EDT Temperature 37.2 C (98.9 F) 12/08/2024 10:37 AM EDT Respiratory Rate 16 12/08/2024 2:00 PM EDT Oxygen Saturation 100% 12/08/2024 2:00 PM EDT Inhaled Oxygen Concentration - - Weight 104.3 kg (230 lb) 12/08/2024 10:37 AM EDT Height 165.1 cm (5' 5 ) 12/08/2024 10:37 AM EDT Body Mass Index 38.27 12/08/2024 10:37 AM EDT Plan of Treatment Health Maintenance Due Date Last Done Comments Cervical Cancer Screening 1972 Cologuard 1972 Colon Cancer Screening 1972 Colonoscopy 1972 FOBT / Fit Test 1972 HIV Screening 1972 HPV and Pap Smear 1972 Hepatitis C Screening 1972 Pap Smear 1972 Sigmoidoscopy 1972 Hepatitis B Vaccines (1 of 3 - 19+ 3-dose series) 1991 Mammogram 2012 Pneumococcal Vaccine: 50+ Ye ars (2 of 2 - PCV) 05/09/2021 05/09/2020, 04/28/2018 Zoster Vaccines (1 of 2) 2022 DTaP,Tdap,and Td Vaccines (5 - Td or Tdap) 04/02/2023 04/02/2013, 03/01/2010, 11/22/2009, Additional history exists Alcohol/Substance Use Screening 2024 Depression Screening and Follow-Up 2024 Social Drivers of Health Radha ual Screening 2024 COVID-19 Vaccine (4 - 2024-2 6 season) 2024 05/12/2021, 07/19/2020, 06/21/2020 Influenza Vaccine (#1) 2024 , 05/01/2022, 05/12/2021, Additional history exists Diabetes Screening 12/09/2027 12/08/2024, 0 09/30/2023, 09/28/2023 RSV Vaccine (60+ years old a nd patients) (1 - 1-dose 75+ series) 2047 Procedures * Due to [place] e-SENS law, this organization might not be sharing negative HIV tests. Procedure Name Priority Date/Time Associated Diagnosis Comments CT ABDOMEN PELVIS W CONTRAST STAT 12/08/2024 2:14 PM EDT HCG, QUALITATIVE, SERUM STAT 12/08/2024 1:02 PM EDT TROPONIN T HIGH SENSITIVITY Timed 12/08/2024 1:02 PM EDT TROPONIN T HIGH SENSITIVITY Timed 12/08/2024 11:43 AM EDT LIPASE STAT 12/08/2024 11:43 AM EDT COMPREHENSIVE METABOLIC PANEL STAT 12/08/2024 11:43 AM EDT CBC AUTO DIFFERENTIAL STAT 12/08/2024 11:43 AM EDT MICROSCOPIC URINALYSIS ONLY Routine 12/08/2024 11:13 AM EDT UA/CULTURE REFLEX Routine 12/08/2024 11: 13 AM EDT URINALYSIS W/REFLEX TO MICROSCOPIC & CULTURE Routine 12/08/2024 11:13 AM EDT ECG 12-LEAD STAT 12/08/2024 10:54 AM EDT from Last 3 Months Results * Due to [place] e-SENS law, this organization might not be sharing negative HIV tests. * CT Abdomen Pelvis with Contrast (12/08/2024 2:14 PM EDT) Anatomical Region Laterality Modality Body Computed Tomogra phy 12/08/2024 2:28 PM EDT Impressions 12/08/2024 2:36 PM EDT Post gastric sleeve with normal-appearing gastric remnant. No gastroesophageal obstruction. A moderate size of hiatal hernia. Prominent sized uterus with a small uterine intramural fibroids. Colonic diverticulosis without diverticulitis or colitis. No obvious acute CT abnormality. If this radiology report contains a blank impression section, it is an incomplete radiology report. Please contact the interpreting radiologist or applicable radiology division as soon as possible to obtain the completed interpretation. Workstation ID: [id number] Up-to-date CT equipment and radiation dose reduction techniques were employed. CTDIvol: 16.7 mGy. DLP: 831 mGy-cm. Narrative 12/08/2024 2:36 PM EDT EXAMINATION: [ < CT abdomen and pelvis with contrast>] INDICATION: Left upper quadrant pain. History of gastric sleeve. TECHNIQUE: Images of the abdomen and pelvis were obtained with intravenous contrast, [ < with >] oral contrast. Coronal and sagittal reformats were generated. COMPARISON: None available. FINDINGS: LOWER THORAX: The visualized lung bases are clear. HEPATOBILIARY: No focal hepatic lesions. No biliary ductal dilatation. Normal gallbladder. SPLEEN: No splenomegaly. PANCREAS: No focal masses or ductal dilatation. ADRENAL GLANDS: No adrenal nodules. KIDNEYS/URETERS: No hydronephrosis, calculi, or solid mass lesions. GI TRACT: Post gastric sleeve surgery. There is a moderate size of hiatal hernia. There is no gastroesophageal obstruction. The small bowel appears unremarkable. There are few colonic diverticuli. No diverticulitis or colitis. No inguinal hernia. PERITONEUM/RETROPERITONEUM: No ascites or free air. LYMPH NODES: No lymphadenopathy. VESSELS: Unremarkable. PELVIC ORGANS/BLADDER: Prominent size of the uterus. There is a at least one intramural fibroid approximate 11 mm in the left fundus. No adnexal mass or mass effect. 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 Resulting Agency Comment [id number] Procedure Note Geoffrey Kaur MD - 12/08/2024 EXAMINATION: [ < CT abdomen and pelvis with contrast>] INDICATION: Left upper quadrant pain. History of gastric sleeve. TECHNIQUE: Images of the abdomen and pelvis were obtained with intravenouscontrast, [ < with >] oral contrast. Coronal and sagittal reformats weregenerated. COMPARISON: None available. FINDINGS: LOWER THORAX: The visualized lung bases are clear. HEPATOBILIARY: No focal hepatic lesions. No biliary ductal dilatation. Normal gallbladder. SPLEEN: No splenomegaly. PANCREAS: No focal masses or ductal dilatation. ADRENAL GLANDS: No adrenal nodules. KIDNEYS/URETERS: No hydronephrosis, calculi, or solid mass lesions. GI TRACT: Post gastric sleeve surgery. There is a moderate size of hiatalhernia. There is no gastroesophageal obstruction. The small bowelappears unremarkable. There are few colonic diverticuli. Nodiverticulitis or colitis. No inguinal hernia. PERITONEUM/RETROPERITONEUM: No ascites or free air. LYMPH NODES: No lymphadenopathy. VESSELS: Unremarkable. PELVIC ORGANS/BLADDER: Prominent size of the uterus. There is a at leastone intramural fibroid approximate 11 mm in the left fundus. No adnexal mass or mass effect. BONES AND SOFT TISSUES: Right hip total arthroplasty is in satisfactoryalignment. IMPRESSION: Post gastric sleeve with normal-appearing gastric remnant. Nogastroesophageal obstruction. A moderate size of hiatal hernia. Prominent sized uterus with a small uterine intramural fibroids. Colonic diverticulosis without diverticulitis or colitis. No obvious acute CT abnormality. If this radiology report contains a blank impression section, it is anincomplete radiology report. Please contact the interpreting radiologistor applicable radiology division as soon as possible to obtain thecompleted interpretation. Workstation ID: [id number] Up-to-date CT equipment and radiation dose reduction techniques wereemployed. CTDIvol: 16.7 mGy. DLP: 831 mGy-cm. us Moi Garg MD IMG CT PROCEDURES Final Resul t * Troponin T, High Sensitivity X2 (now + 2hrs) (12/08/2024 1:02 PM EDT) Only the most recent of2 resultswithin the time period is included. Troponin T High Sensitivity 6 6 - 14 ng/L 12/08/2024 2:06 PM EDT [facility] Comment: Vl-Nqozafhg-V level of 52 ng/L or higher at 0-hour at presentation is recommended by the ESC 0/1-hour algorithm for identifying patients at high risk for ruling in acute myocardial infarction (AMI) in the appropriate clinical context. Repeat troponin testing 1-3 hours after the initial sample may be helpful in assessing for ongoing myocardial injury. Troponin elevations can be seen in several other non-infarct conditions, and the change (delta) should be evaluated in line with the 4th [place] Definition of AMI. Troponin baseline and serial elevation for a significant delta should be interpreted with clinical presentation, history, signs and symptoms, ECG, and biomarker concentrations. For inpatient setting: Value <12ng/L is considered negative for all genders. 0-1hr: A delta change of <3 will be considered negative/flat if chest pain onset >3 hours 0-3hr: A delta change of <7 will be considered negative/flat Blood Structure of peripheral vein / Unknown Venipuncture / Unknown 12/08/2024 1:02 PM EDT 12/08/2024 1:03 PM EDT Giovanna KRAUS LAB BLOOD ORDERABLES Final R esult Performing Organization Address [facility] Co de Phone Number [facility] [address] [place] [address], [place] [phone] * hCG, Qualitative, Serum (12/08/2024 1:02 PM EDT) HCG Qualitative, Serum Negative Negative [place] [facility] 12/08/2024 1:24 PM EDT [facility] Blood Structure of peripheral vein / Unknown Venipuncture / Unknown 12/08/2024 1:02 PM EDT 12/08/2024 1:03 PM EDT Moi Garg MD LAB BLOOD ORDERABLES Final Re sult Performing Organization Address [facility] Co de Phone Number [facility] [address] [place] [address], [place] [phone] * (ABNORMAL) CBC Auto Differential (12/08/2024 11:43 AM EDT) WBC 7.8 4.8 - 10.8 10*3/uL 12/08/2024 11:50 AM EDT [facility] RBC 4.48 4.20 - 5.40 10*6/uL 12/08/2024 11:50 AM EDT [facility] Hemoglobin 12.6 11.7 - 15.5 g/dL 12/08/2024 11:50 AM EDT [facility] Hematocrit 36.7 35.7 - 45.8 % 12/08/2024 11:50 AM EDT [facility] MCV 81.9 81.0 - 99.0 fL 12/08/2024 11:50 AM EDT [facility] MCH 28.1 26.0 - 34.0 pg 12/08/2024 11:50 AM EDT [facility] MCHC 34.3 31.0 - 36.0 g/dL 12/08/2024 11:50 AM EDT [facility] RDW 13.4 12.0 - 15.0 % 12/08/2024 11:50 AM EDT [facility] RDW Standard Deviation 40.4 36.4 - 46.3 fL 12/08/2024 11:50 AM EDT [facility] Platelets 351 140 - 440 10*3/uL 12/08/2024 11:50 AM EDT [facility] MPV 9.0(L) 9.4 - 12.3 fL 12/08/2024 11:50 AM EDT [facility] Neutrophil % 68.8 50.0 - 75.0 % 12/08/2024 11:50 AM EDT [facility] Immature Grans % 0.3 0.0 - 0.9 % 12/08/2024 11:50 AM EDT [facility] Lymphocyte % 21.5 20.0 - 44.0 % 12/08/2024 11:50 AM EDT [facility] Monocyte % 7.0 0.0 - 14.0 % 12/08/2024 11:50 AM EDT [facility] Eosinophil % 1.8 0.0 - 5.0 % 12/08/2024 11:50 AM EDT [facility] Basophil % 0.6 0.0 - 2.0 % 12/08/2024 11:50 AM EDT [facility] Neutrophil # 5.38 1.80 - 7.70 10*3/uL 12/08/2024 11:50 AM EDT [facility] Immature Grans # <0.03 0.00 - 0.03 10*3/uL 12/08/2024 11:50 AM EDT [facility] Lymphocyte # 1.70 1.00 - 4.75 10*3/uL 12/08/2024 11:50 AM EDT [facility] Monocyte # 0.60 0.00 - 0.60 10*3/uL 12/08/2024 11:50 AM EDT [facility] Eosinophil # 0.10 0.00 - 0.80 10*3/uL 12/08/2024 11:50 AM EDT [facility] Basophil # 0.10 0.00 - 0.20 10*3/uL 12/08/2024 11:50 AM EDT [facility] nRBC % 0.0 0 - 0 /100 WBCs 12/08/2024 11:50 AM EDT [facility] nRBC # <0.01 0.00 - 0.13 10*3/uL 12/08/2024 11:50 AM EDT [facility] Blood Structure of peripheral vein / Unknown Venipuncture / Unknown 12/08/2024 11:43 AM EDT 12/08/2024 11:47 AM EDT us Giovanna KRAUS LAB BLOOD ORDERABLES Final R esult [facility] [address] [place] [address], [place] [phone] * Lipase (12/08/2024 11:43 AM EDT) Lipase 26 13 - 60 U/L 12/08/2024 12:22 PM EDT [facility] Blood Structure of peripheral vein / Unknown Venipuncture / Unknown 12/08/2024 11:43 AM EDT 12/08/2024 11:47 AM EDT us Giovanna KRAUS LAB BLOOD ORDERABLES Final R esult [facility] [address] [place] [address], [place] [phone] * (ABNORMAL) CMP - Comprehensive Metabolic Panel (12/08/2024 11:43 AM EDT) NA 137 136 - 145 mmol/L 12/08/2024 12:22 PM EDT [facility] K 4.3 3.5 - 5.1 mmol/L 12/08/2024 12:22 PM EDT [facility] Cl 104 98 - 109 mmol/L 12/08/2024 12:22 PM EDT [facility] CO2 23 22 - 32 mmol/L 12/08/2024 12:22 PM EDT [facility] Anion Gap 14 >=0 12/08/2024 12:22 PM EDT [facility] Glucose 90 60 - 99 mg/dL 12/08/2024 12:22 PM EDT [facility] Creatinine 0.87 0.50 - 1.12 mg/dL 12/08/2024 12:22 PM EDT [facility] Calcium 9.9 8.4 - 10.4 mg/dL 12/08/2024 12:22 PM EDT [facility] Total Protein 6.8 6.6 - 8.7 g/dL 12/08/2024 12:22 PM EDT [facility] Albumin 4.0 3.5 - 5.0 g/dL 12/08/2024 12:22 PM EDT [facility] Bilirubin, Total 0.6 0.2 - 1.2 mg/dL 12/08/2024 12:22 PM EDT [facility] Alkaline Phosphatase 87 40 - 129 U/L 12/08/2024 12:22 PM EDT [facility] AST 16 0 - 33 U/L 12/08/2024 12:22 PM EDT [facility] ALT 14 <=33 U/L 12/08/2024 12:22 PM EDT [facility] BUN 18 6 - 20 mg/dL 12/08/2024 12:22 PM EDT [facility] eGFR 80 >=60 mL/min/1. 73m2 12/08/2024 12:22 PM EDT [facility] Comment:The estimated glomer ular filtration rate (eGFR) is calculated using a new formula developed by the NKF-ASN task force to eliminate race-based correction factors. The new formula uses serum/plasma creatinine, age, and gender to determine eGFR. A value below 60mls/min might indicate kidney disease and will be flagged. For additional information, see Raymond et al, Am J Kidney Dis. 2021;79(2):268- 288, A Unifying Approach for GFR estimation: Recommendations of the NKF-ASN Task Force on Reassessing the Inclusion of Race in Diagnosing Kidney Disease . Globulin, Total 2.8 2.1 - 4.2 g/dL 12/08/2024 12:22 PM EDT [facility] A/G Ratio 1.4(L) 1.5 - 3.0 12/08/2024 12:22 PM EDT [facility] Blood Structure of peripheral vein / Unknown Venipuncture / Unknown 12/08/2024 11:43 AM EDT 12/08/2024 11:47 AM EDT us Giovanna KRAUS LAB BLOOD ORDERABLES Final R esult [facility] [address] [place] [address], [place] [phone] * (ABNORMAL) Microscopic Urinalysis Only (12/08/2024 11:13 AM EDT) RBC, Urine None Seen None Seen, 0-2 /HPF 12/08/2024 12:07 PM EDT [facility] WBC, Urine 0-2 None Seen, 0-2 /HPF 12/08/2024 12:07 PM EDT [facility] Squamous Epithelial Cells, Urine 0-2 /HPF 12/08/2024 12:07 PM EDT [facility] Bacteria, Urine Trace(A) None Seen /HPF 12/08/2024 12:07 PM EDT [facility] Urine Urine specimen collection, clean catch / Unknown Non-Blood Collection / Unknown 12/08/2024 11:13 AM EDT 12/08/2024 11:54 AM EDT us Moi Garg MD LAB URINE ORDERABLES Final Re sult [facility] [address] [place] [address] [address] [place] [address], [place] [phone] * (ABNORMAL) Urinalysis W/Reflex to Microscopic & Culture (12/08/2024 11:13 AM EDT) Color, Urine Yellow Yellow 12/08/2024 11:54 AM EDT [facility] Clarity, Urine Clear Clear 12/08/2024 11:54 AM EDT [facility] Specific [place], Urine <=1.005 1.005 - 1.030 12/08/2024 11:54 AM EDT [facility] pH, Urine 6.0 5.0 - 8.0 12/08/2024 11:54 AM EDT [facility] Protein, Urine Negative Negative mg/dL 12/08/2024 11:54 AM EDT [facility] Glucose, Urine Negative Negative mg/dL 12/08/2024 11:54 AM EDT [facility] Ketones, Urine Negative Negative mg/dL 12/08/2024 11:54 AM EDT [facility] Bilirubin, Urine Negative Negative 12/08/2024 11:54 AM EDT [facility] Blood, Urine Negative Negative 12/08/2024 11:54 AM EDT [facility] Nitrite, Urine Negative Negative 12/08/2024 11:54 AM EDT [facility] Urobilinogen, Urine 0.2 0.2 - 1.0 E.U./dL 12/08/2024 11:54 AM EDT [facility] Leukocyte Esterase, Urine Trace(A) Negative 12/08/2024 11:54 AM EDT [facility] Urine Urine specimen collection, clean catch / Unknown Non-Blood Collection / Unknown 12/08/2024 11:13 AM EDT 12/08/2024 11:44 AM EDT Narrative [facility] - 12/08/2024 11:54 AM EDT Some urinalysis results will not meet the criteria for reflex urine culture although certain urine values may be abnormal. Additional testing can be ordered by the provider if clinically warranted. Moi Garg MD LAB URINE ORDERABLES Final Re sult Performing Organization Address City/[facility]/ZIP Co de Phone Number [facility] [address] [place] [address], [place] [phone] * ECG 12 lead (12/08/2024 10:54 AM EDT) Ventricular Rate EKG 61 BPM MUSE EKG Atrial Rate 61 BPM MUSE EKG NH Interval 150 ms MUSE EKG QRS Interval 92 ms MUSE EKG QT Interval 426 ms MUSE EKG QTC Interval 428 ms MUSE EKG P [place] 26 degrees MUSE EKG R [place] 42 degrees MUSE EKG T Wave [place] 24 degrees MUSE EKG 12/08/2024 10:5 4 AM EDT 12/08/2024 2:30 PM EDT Impressions MUSE EKG - 12/08/2024 2:30 PM EDT Sinus rhythm with premature ventricular complexes Confirmed by Zeb Deleon ([id number]) on 12/08/2024 2:30:06 PM Narrative Procedure Note Zeb Deleon MD - 12/08/2024 IMPRESSION: Sinus rhythm with premature ventricular complexes Confirmed by Zeb Deleon ([id number]) on 12/08/2024 2:30:06 PM Moi Garg MD ECG ORDERABLES Final Result Performing Organization Address City/[facility]/ZIP Co de Phone Number MUSE EKG from Last 3 Months Insurance [employer] Care Teams Hotel Maintenance Technician Relationship Specialty Start Date End Date Sabrina Carr MD [address] [place] [address] PCP - General Internal Medicine 12/08/24
--- OUTSIDE RECORDS SUMMARY | 2025-01-25 07:30 | XMS_ITS | Clinical Summary ---
Author Organization [facility] Address [address] [place] [id number] Phone Care Team Providers Care Mill Roll Rewinder Name Role Phone Sabrina Carr MD Primary Care Provider Allergies Active Allergy Reactions Criticality Noted Date Comments Kiwi 09/27/2023 Oxycodone-Acetaminophen 09/27/2023 Social History Tobacco Use Types Packs/Day Years Used Date Smoking Tobacco: Never Assessed Education Answer Date Recorded Are you interested in more education? Not on miley e 08/17/2022 Are you concerned about learning? Not on file 08/17/2022 No 08/17/2022 No 08/17/2022 Digital Access Answer Date Recorded No 09/17/2022 No 09/17/2022 No 09/17/2022 Reliable internet access at home? Not on file 09/17/2022 Device with a working camera? Not on file Intimate Partner Violence Answer Date R ecorded Are you denied basic needs s uch as food, clothing, or medical care? No 09/27/2023 In the past 12 months have y ou been in a relationship with a person who hurts, threatens, or tries to control you? No 09/27/2023 Are you denied basic needs s uch as food, clothing, or medical care? No 09/27/2023 In the past 12 months have y ou been in a relationship with a person who hurts, threatens, or tries to control you? No 09/27/2023 Comments Unknown Sex and Gender Information Value Date Recorded Sex Assigned at Female 09/27/2023 6:49 PM EDT Legal Sex Female 9:32 PM EDT Gender Identity Female 09/27/2023 6:49 PM EDT Sexual Orientation Straight 09/27/2023 6: 49 PM EDT Last Filed Vital Signs Vital Sign Reading Time Taken Comments Blood Pressure 100/63 09/28/2023 1:48 AM EDT Pulse 62 09/28/2023 1:48 AM EDT Temperature 36.8 C (98.2 F) 09/28/2023 1:48 AM EDT Respiratory Rate 16 09/27/2023 6:31 PM EDT Oxygen Saturation 97% 09/28/2023 1:48 AM EDT Inhaled Oxygen Concentration - - Weight 102.1 kg (225 lb) 09/27/2023 6:31 PM EDT Height 162.6 cm (5' 4 ) 09/27/2023 6:31 PM EDT Body Mass Index 38.62 09/27/2023 6:31 PM EDT Plan of Treatment Health Maintenance Due Date Last Done Comments Adult Td,Tdap Booster 1972 LIPID PANEL 1972 DEPRESSION SCREENING 1984 SMOKING Hx and SMOKELESS TOB ACCO SCREENING 1985 HEPATITIS C SCREENING 1990 HIV ONE-TIME SCREENING (18-6 5 YEARS) 1990 PAP SMEAR 1993 MAMMOGRAM 2012 COLOGUARD 2017 COLONOSCOPY 2017 COLORECTAL CANCER SCREENING 2017 FIT TEST 2017 FOBT 2017 SIGMOIDOSCOPY 2017 VIRTUAL COLONOSCOPY 2017 PNEUMOCOCCAL VACCINES (50+ y ears) (1 of 1 - PCV) 2022 ZOSTER VACCINES (1 of 2) 2022 INFLUENZA VACCINE (#1) 2024 COVID-19 VACCINE ( - 2023-2 5 season) 2024 SCREENING FOR DIABETES 09/27/2026 09/28/2023 HEPATITIS A VACCINES Aged Out No long er eligible based on patient's age to complete this topic HIB VACCINES Aged Out No longer eligi ble based on patient's age to complete this topic MENINGOCOCCAL VACCINES (ACWY) Aged Out No longer eligible based on patient's age to complete this topic MENINGOCOCCAL VACCINES (B) Aged Out N o longer eligible based on patient's age to complete this topic Medical Devices Not on file Insurance [employer] [place] [address] [place] [address] [place] [address] [place] [place] [address] [facility] [address] [place] [address] [address] [address] [place] [address] [place] [address] ACO Care Teams Mill Roll Rewinder Relationship Specialty Start Date End Date Sabrina Carr MD [address] [facility] [place] [address] PCP - General Internal Medicine 11/26/18 Additional Source Comments The information contained in this document represents components of the legal health record. It is not the complete legal health record.[facility]
[2025-01-25 10:36] LABS: MANUAL DIFF FLAG NO
[2025-01-25 10:42] LABS: Hematocrit 36.4 % (37.0-47.0); Hemoglobin 11.9 g/dl (12.0-16.0); Imm Gran Abs Auto 0.03 X10*3/uL (0.00-0.03); Imm Gran Pct Auto 0.5 % (0.0-0.4); Lymphocytes Absolute Auto 1.6 X10*3/uL (1.2-4.9); Mean Corpuscular HGB Conc 32.7 g/dl (31.0-35.0); Mean Corpuscular Hemoglobin 27.2 pg (27.0-33.0); Mean Corpuscular Volume 83.3 fL (80.0-98.0); NRBC Abs Auto 0.000 X10*3/uL (0.0-0.012); NRBC Pct Auto 0.0 /100WBC (0.0-0.2); Platelet Count 350 X10*3/uL (160-400); Red Blood Count 4.37 X10*6/uL (4.20-5.50); White Blood Count 5.8 X10*3/uL (4.8-10.8)
[2025-01-25 11:01] LABS: Alanine Aminotransferase 17 U/L (0-31); Anion Gap 10 (12-20); Aspartate Amino Transferase 22 U/L (5-31); Blood Urea Nitrogen 18 mg/dL (9-16); Calcium 8.9 mg/dL (8.4-10.2); Carbon Dioxide 26 mmol/L (22-29); Chloride 109 mmol/L (96-108); Cholesterol 182 mg/dL (<200); Estimated Glomerular Filt Rate > 60; HDL Cholesterol 53 mg/dL (>40); Iron 35 mcg/dL (30-160); Percent Iron Saturation 12 % (15-50); Potassium 4.0 mmol/L (3.3-5.1); Sodium 141 mmol/L (135-145); Total Iron Binding Capacity 289 mcg/dL (228-428); Triglycerides 81 mg/dL (<150); Unsaturated Iron Binding 254 ug/dL
== END 2025-01-25 07:29 | disposition home or self-care (01) ==
LOC: HO.HMGCLDS 07:28
PROVIDERS: PCP Internal Medicine; Visit Provider Internal Medicine
DX: I10 Essential (primary) hypertension (principal); E11.9 Type 2 diabetes mellitus without complications; E78.5 Hyperlipidemia, unspecified; D64.9 Anemia, unspecified; Z78.0 Asymptomatic menopausal state
CPT/HCPCS: 36415; 80048; 80061; 82043; 82306; 82570; 83036; 83540; 84450; 84460; 85025

== ENCOUNTER 2025-02-10 12:25 | Outpatient (AMB) | payer OTHER, SELFPAY ==
--- NOTE | 2025-02-10 12:40 | MHC.OFFWIV ---
Intake Vital Signs 02/10/25 12:57 Height 5 ft 5 in Weight 221 lb BMI 36.8 BP 124/76 Blood Pressure Location Rt brachial Position Sitting Pulse 70 Pulse Source Pulse Oximeter Temp 98.6 F Temp Source Oral Pulse Oximetry (%) 98 Oxygen Delivery Method Room Air Intake Visit Reasons: EP Sinus infection [phone] Intake Note: pt presents with sinus congestion and also c/o abdominal pain, burning with peeing and nausea Patient Tobacco Use Status: Never used Tobacco Allergies cephalexin (From KEFLEX) Allergy (Unknown, Verified 02/10/25 12:42) ANGIOEDEMA contrast dyes Allergy (Unknown, Verified 02/10/25 12:42) tongue numbness, headache, airway involvement, tongue numbness, headache, airway involvement kiwi (KIWI) Allergy (Unknown, Verified 02/10/25 12:42) ANAPHYLAXIS Sulfa (Sulfonamide Antibiotics) (SULFA (SULFONAMIDE ANTIBIOTICS)) Allergy (Unknown, Verified 02/10/25 12:42) anaphylaxis, diarrhea naproxen (Naprosyn) Adverse Reaction (Unknown, Verified 02/10/25 12:42) vomiting nitrofurantoin (Macrobid) Adverse Reaction (Unknown, Verified 02/10/25 12:42) dizziness oxycodone (Percocet) Adverse Reaction (Unknown, Verified 02/10/25 12:42) vomiting sulfamethoxazole Adverse Reaction (Unknown, Verified 02/10/25 12:42) diarrhea HPI HPI Comments History of Present Illness Details History of Present Illness - The patient is a 54-year-old female presenting with symptoms of postnasal drip, congestion, and fatigue. - The postnasal drip has been persistent for several weeks, causing throat irritation. - The patient denies any cough, ear pain, or sore throat. - She reports feeling tired and fatigued, which has been ongoing for several weeks. - The patient has not used any eppu-slh-[id number] medications for these symptoms. - She takes cetirizine and loratadine for allergies. - Her son has the same symptoms. - She has no abd pain, n/v/d, or recent travel. - She is not a smoker. urinary frequency - The patient reports urinary frequency, which she attributes to holding urine for extended periods due to her current lifestyle changes. - She denies burning sensation or increased frequency typically associated with urinary tract infections. - The patient has a history of hiatal hernia, which may contribute to her nausea. - She denies fever, chills, CP, SOB, abd pain, hematuria, Physical Exam General: Cooperative, healthy appearing, comfortable, no acute distress and well developed Head: Normal to inspection Ears: Hearing grossly normal bilaterally. No tragus or mastoid tenderness noted. Auditory canals clear bilaterally. TM's normal, not bulging. No fluid noted. Nose: Normal external nose present. Moist mucosa. Turbinates normal bilaterally, not boggy. Face and sinus: Tenderness to palpation of the frontal and maxillary sinuses bilaterally. Neck: Normal visual inspection and Yes full ROM. No lymphadenopathy noted. Respiratory: Normal respiratory effort and able to speak in complete sentences. Clear to auscultation bilaterally Cardiovascular: Regular rate and rhythm. Normal S1 and S2 GI: Normal to inspection. Soft to palpation and nontender, nondistended. No guarding noted. No CVA tenderness noted Skin: No rashes or lesions noted [facility] Medical History Rosacea Varicose veins of bilateral lower extremities with pain Anemia Hidradenitis suppurativa Primary osteoarthritis of right hip Chronic hip pain, bilateral Annual visit for general adult medical examination with abnormal findings Diverticulosis History of small bowel obstruction Folliculitis Type 2 diabetes mellitus without complication, without long-term current use of insulin Morbid obesity Traumatic brain injury Fatty liver Chronic GERD Essential hypertension DARIELA (obstructive sleep apnea) Narcolepsy Dyslipidemia Surgical History History of sleeve gastrectomy History of colonoscopy History of hernia repair History of carpal tunnel release of both wrists Family History Father Diabetes mellitus HTN (hypertension) Mental health disorder Mother Diabetes mellitus HTN (hypertension) Son Autism Daughter Glioblastoma multiforme Maternal Grandfather Cancer of prostate Brother No problems noted. Sister No problems noted. Son No problems noted. Social History Housing: House Alcohol intake: former Patient Tobacco Use Status: Never used Tobacco e-Cigarette/Vaping Use: Never Used service: No Current occupational status: unemployed Cognitive needs: No Hearing needs: No Vision needs: No Review of Systems Const All systems reviewed & are unremarkable except as noted in HPI and below Physical Exam Vital Signs: Last Vital Signs Temp 98.6 F 02/10/25 12:57 Pulse 70 02/10/25 12:57 BP 124/76 02/10/25 12:57 Pulse Ox 98 02/10/25 12:57 Oxygen Delivery Method Room Air 02/10/25 12:57 BMI result Body Mass Index 36.8 Results AMB Urinalysis, Automated UA Leukoctes 0 Parveen/uL Last Edit by Julee Joyner CMA on 02/10/25 13:18 UA Nitrite Negative Last Edit by Julee Joyner, EMILEE on 02/10/25 13:18 UA Urobilinogen 0.2 mg/dL Last Edit by Julee Joyner, EMILEE on 02/10/25 13:18 UA Protein 0 mg/dL Last Edit by Julee Joyner, EMILEE on 02/10/25 13:18 UA pH 6.0 Last Edit by Julee Joyner, EMILEE on 02/10/25 13:18 UA Blood 0 Rogelio/uL Last Edit by Julee Joyner, EMILEE on 02/10/25 13:18 UA Specific [place] 1.010 Last Edit by Julee Joyner CMA on 02/10/25 13:18 UA Ketone Negative Last Edit by Julee Joyner, EMILEE on 02/10/25 13:18 UA Bilirubin 0 mg/dL Last Edit by Julee Joyner, EMILEE on 02/10/25 13:18 UA Glucose 100 mg/dL Last Edit by Julee Joyner CMA on 02/10/25 13:18 Results Reviewed Results Reviewed: Laboratory Last Values Urine pH (Auto) 6.0 02/10/25 13:16 Specific [place] (Auto) 1.010 02/10/25 13:16 Urine Protein (Auto) 0 mg/dL 02/10/25 13:16 Glucose (UA)(Auto) 100 mg/dL 02/10/25 13:16 Urine Ketones (Auto) Negative 02/10/25 13:16 Urine Blood (Auto) 0 Rogelio/uL 02/10/25 13:16 Urine Nitrite (Auto) Negative 02/10/25 13:16 Urine Bilirubin (Auto) 0 mg/dL 02/10/25 13:16 Urine Urobilinogen (Auto) 0.2 mg/dL 02/10/25 13:16 Leukocyte Esterase (Auto) 0 Parveen/uL 02/10/25 13:16 Assessment & Plan Assessment & Plan (1) Sinus congestion: Code(s): R09.81 - Nasal congestion Plan: Most likely sinusitis plan - steam showers - continue with the loratadine - flonase daily - tylenol or motrin as needed - z-becca as directed - will order a resp panel and call with the results (2) Urinary frequency: Code(s): R35.0 - Frequency of micturition Plan Most likely UA +glu plan - will order a urine culture - drink lots of fluids - watch for fever, pain with urination, etc - will call with the results and treat if positive - follow up as needed Orders: Orders Urine Culture Today N39.0 - Urinary tract infection, site not specified Resp Pathogen Panel - [facility] Today J06.9 - Acute upper respiratory infection, unspecified AMB Urinalysis Automated Today Z13.9 - Encounter for screening, unspecified Medications: New azithromycin For 250 mg dose pack: take 500 mg today (day 1), then 250 mg for 4 days (days 2-5) PO 6 tabs 0RF fluticasone propionate 50 mcg/actuation administer into each nostril 1 spray intranasal Q12H 16 grams 0RF Coding Level of Care Code Est Pt Level 4 (71789) Diagnoses Sinus congestion R09.81 Urinary frequency R35.0
[2025-02-10 12:57] VITALS: BP 124/76; PULSE 70; TEMP 37; O2SAT 98; BMI 36.8
--- OUTSIDE RECORDS SUMMARY | 2025-02-10 17:13 | XMS_ITS | Clinical Summary ---
Author Organization [facility] Address [address] [place] [address] Care Team Providers Care Business Developer Name Role Phone Sabrina Carr MD Primary [...] EDT - 12/08/2024 3:04 PM EDT Emergency [facility] Emergency Department [address] [place] [id number] Moi Garg MD Pain of upper abdomen [...] 75+ series) 2047 Procedures * Due to [place] law, this organization might not be sharing [...] Last 3 Months Results * Due to [place] law, this organization might not be sharing [...] to obtain the completed interpretation. Workstation ID: [id number] Up-to-date CT equipment and radiation dose reduction [...] is in satisfactory alignment. Resulting Agency Comment [id number] Procedure Note Geoffrey Kaur MD - 12/08/2024 [...] possible to obtain thecompleted interpretation. Workstation ID: [id number] Up-to-date CT equipment and radiation dose reduction techniques wereemployed. CTDIvol: 16.7 mGy. DLP: 831 mGy-cm. us Moi Garg MD IMG CT PROCEDURES Final Resul t * Troponin T, High Sensitivity X2 (now + 2hrs) (12/08/2024 1:02 PM EDT) Only the most recent of2 resultswithin the time period is included. Troponin T High Sensitivity 6 6 - 14 ng/L 12/08/2024 2:06 PM EDT [facility] Comment: Gt-Ljqinhsm-G level of 52 ng/L or higher at [...] be evaluated in line with the 4th [place] Definition of AMI. Troponin baseline and serial [...] ORDERABLES Final R esult Performing Organization Address [facility] Co de Phone Number [facility] [address] [place] [address], [place] [phone] * hCG, Qualitative, Serum (12/08/2024 1:02 PM EDT) HCG Qualitative, Serum Negative Negative [facility] 12/08/2024 1:24 PM EDT [facility] Blood Structure of peripheral vein / Unknown Venipuncture / Unknown 12/08/2024 1:02 PM EDT 12/08/2024 1:03 PM EDT Moi Garg MD LAB BLOOD ORDERABLES Final Re sult Performing Organization Address [facility] Co de Phone Number [facility] [address] [place] [address], [place] [phone] * (ABNORMAL) CBC Auto Differential (12/08/2024 11:43 AM EDT) WBC 7.8 4.8 - 10.8 10*3/uL 12/08/2024 11:50 AM EDT [facility] RBC 4.48 4.20 - 5.40 10*6/uL 12/08/2024 11:50 AM EDT [facility] Hemoglobin 12.6 11.7 - 15.5 g/dL 12/08/2024 11:50 AM EDT [facility] Hematocrit 36.7 35.7 - 45.8 % 12/08/2024 11:50 AM EDT [facility] MCV 81.9 81.0 - 99.0 fL 12/08/2024 11:50 AM EDT [facility] MCH 28.1 26.0 - 34.0 pg 12/08/2024 11:50 AM EDT [facility] MCHC 34.3 31.0 - 36.0 g/dL 12/08/2024 11:50 AM EDT [facility] RDW 13.4 12.0 - 15.0 % 12/08/2024 11:50 AM EDT [facility] RDW Standard Deviation 40.4 36.4 - 46.3 fL 12/08/2024 11:50 AM EDT [facility] Platelets 351 140 - 440 10*3/uL 12/08/2024 11:50 AM EDT [facility] MPV 9.0(L) 9.4 - 12.3 fL 12/08/2024 11:50 AM EDT [facility] Neutrophil % 68.8 50.0 - 75.0 % 12/08/2024 11:50 AM EDT [facility] Immature Grans % 0.3 0.0 - 0.9 % 12/08/2024 11:50 AM EDT [facility] Lymphocyte % 21.5 20.0 - 44.0 % 12/08/2024 11:50 AM EDT [facility] Monocyte % 7.0 0.0 - 14.0 % 12/08/2024 11:50 AM EDT [facility] Eosinophil % 1.8 0.0 - 5.0 % 12/08/2024 11:50 AM EDT [facility] Basophil % 0.6 0.0 - 2.0 % 12/08/2024 11:50 AM EDT [facility] Neutrophil # 5.38 1.80 - 7.70 10*3/uL 12/08/2024 11:50 AM EDT [facility] Immature Grans # <0.03 0.00 - 0.03 10*3/uL 12/08/2024 11:50 AM EDT [facility] Lymphocyte # 1.70 1.00 - 4.75 10*3/uL 12/08/2024 11:50 AM EDT [facility] Monocyte # 0.60 0.00 - 0.60 10*3/uL 12/08/2024 11:50 AM EDT [facility] Eosinophil # 0.10 0.00 - 0.80 10*3/uL 12/08/2024 11:50 AM EDT [facility] Basophil # 0.10 0.00 - 0.20 10*3/uL 12/08/2024 11:50 AM EDT [facility] nRBC % 0.0 0 - 0 /100 WBCs 12/08/2024 11:50 AM EDT [facility] nRBC # <0.01 0.00 - 0.13 10*3/uL 12/08/2024 11:50 AM EDT [facility] Blood Structure of peripheral vein / Unknown Venipuncture / Unknown 12/08/2024 11:43 AM EDT 12/08/2024 11:47 AM EDT us Giovanna KRAUS LAB BLOOD ORDERABLES Final R esult [facility] [address] [place] [address], [place] [phone] * Lipase (12/08/2024 11:43 AM EDT) Lipase 26 13 - 60 U/L 12/08/2024 12:22 PM EDT [facility] Blood Structure of peripheral vein / Unknown Venipuncture / Unknown 12/08/2024 11:43 AM EDT 12/08/2024 11:47 AM EDT us Giovanna KRAUS LAB BLOOD ORDERABLES Final R esult [facility] [address] [place] [address], [place] [phone] * (ABNORMAL) CMP - Comprehensive Metabolic Panel (12/08/2024 11:43 AM EDT) NA 137 136 - 145 mmol/L 12/08/2024 12:22 PM EDT [facility] K 4.3 3.5 - 5.1 mmol/L 12/08/2024 12:22 PM EDT [facility] Cl 104 98 - 109 mmol/L 12/08/2024 12:22 PM EDT [facility] CO2 23 22 - 32 mmol/L 12/08/2024 12:22 PM EDT [facility] Anion Gap 14 >=0 12/08/2024 12:22 PM EDT [facility] Glucose 90 60 - 99 mg/dL 12/08/2024 12:22 PM EDT [facility] Creatinine 0.87 0.50 - 1.12 mg/dL 12/08/2024 12:22 PM EDT [facility] Calcium 9.9 8.4 - 10.4 mg/dL 12/08/2024 12:22 PM EDT [facility] Total Protein 6.8 6.6 - 8.7 g/dL 12/08/2024 12:22 PM EDT [facility] Albumin 4.0 3.5 - 5.0 g/dL 12/08/2024 12:22 PM EDT [facility] Bilirubin, Total 0.6 0.2 - 1.2 mg/dL 12/08/2024 12:22 PM EDT [facility] Alkaline Phosphatase 87 40 - 129 U/L 12/08/2024 12:22 PM EDT [facility] AST 16 0 - 33 U/L 12/08/2024 12:22 PM EDT [facility] ALT 14 <=33 U/L 12/08/2024 12:22 PM EDT [facility] BUN 18 6 - 20 mg/dL 12/08/2024 12:22 PM EDT [facility] eGFR 80 >=60 mL/min/1. 73m2 12/08/2024 12:22 PM EDT [facility] Comment:The estimated glomer ular filtration [...] - 4.2 g/dL 12/08/2024 12:22 PM EDT [facility] A/G Ratio 1.4(L) 1.5 - 3.0 12/08/2024 12:22 PM EDT [facility] Blood Structure of peripheral vein / Unknown Venipuncture / Unknown 12/08/2024 11:43 AM EDT 12/08/2024 11:47 AM EDT us Giovanna KRAUS LAB BLOOD ORDERABLES Final R esult [facility] [address] [place] [phone], [place] [phone] * (ABNORMAL) Microscopic Urinalysis Only (12/08/2024 11:13 AM EDT) RBC, Urine None Seen None Seen, 0-2 /HPF 12/08/2024 12:07 PM EDT [facility] WBC, Urine 0-2 None Seen, 0-2 /HPF 12/08/2024 12:07 PM EDT [facility] Squamous Epithelial Cells, Urine 0-2 /HPF 12/08/2024 12:07 PM EDT [facility] Bacteria, Urine Trace(A) None Seen /HPF 12/08/2024 12:07 PM EDT [facility] Urine Urine specimen collection, clean catch / Unknown Non-Blood Collection / Unknown 12/08/2024 11:13 AM EDT 12/08/2024 11:54 AM EDT us Moi aGrg MD LAB URINE ORDERABLES Final Re sult [facility] [address] [place] [address] [address] [place] [address], [place] [phone] * (ABNORMAL) Urinalysis W/Reflex to Microscopic & Culture (12/08/2024 11:13 AM EDT) Color, Urine Yellow Yellow 12/08/2024 11:54 AM EDT [facility] Clarity, Urine Clear Clear 12/08/2024 11:54 AM EDT [facility] Specific [place], Urine <=1.005 1.005 - 1.030 12/08/2024 11:54 AM EDT [facility] pH, Urine 6.0 5.0 - 8.0 12/08/2024 11:54 AM EDT [facility] Protein, Urine Negative Negative mg/dL 12/08/2024 11:54 AM EDT [facility] Glucose, Urine Negative Negative mg/dL 12/08/2024 11:54 AM EDT [facility] Ketones, Urine Negative Negative mg/dL 12/08/2024 11:54 AM EDT [facility] Bilirubin, Urine Negative Negative 12/08/2024 11:54 AM EDT [facility] Blood, Urine Negative Negative 12/08/2024 11:54 AM EDT [facility] Nitrite, Urine Negative Negative 12/08/2024 11:54 AM EDT [facility] Urobilinogen, Urine 0.2 0.2 - 1.0 E.U./dL 12/08/2024 11:54 AM EDT [facility] Leukocyte Esterase, Urine Trace(A) Negative 12/08/2024 11:54 AM EDT [facility] Urine Urine specimen collection, clean catch / Unknown Non-Blood Collection / Unknown 12/08/2024 11:13 AM EDT 12/08/2024 11:44 AM EDT Narrative [facility] - 12/08/2024 11:54 AM EDT Some urinalysis results will not meet the criteria for reflex urine culture although certain urine values may be abnormal. Additional testing can be ordered by the provider if clinically warranted. Moi Garg MD LAB URINE ORDERABLES Final Re sult Performing Organization Address City/[facility]/ZIP Co de Phone Number [facility] [address] [place] [phone], [place] [phone] * ECG 12 lead (12/08/2024 10:54 AM EDT) Ventricular Rate EKG 61 BPM MUSE EKG Atrial Rate 61 BPM MUSE EKG ME Interval 150 ms MUSE EKG QRS Interval 92 ms MUSE EKG QT Interval 426 ms MUSE EKG QTC Interval 428 ms MUSE EKG P [place] 26 degrees MUSE EKG R [place] 42 degrees MUSE EKG T Wave [place] 24 degrees MUSE EKG 12/08/2024 10:5 4 [...] ECG ORDERABLES Final Result Performing Organization Address City/[facility]/ZIP Co de Phone Number MUSE EKG from Last 3 Months Insurance [employer] Care Teams Business Developer Relationship Specialty Start Date End Date Sabrina Carr MD [address] [address] PCP - General Internal Medicine 12/08/24
== END 2025-02-10 13:31 | disposition home or self-care (01) ==
PROVIDERS: PCP Internal Medicine; Visit Provider Physician Assistant Medical
DX: R09.81 Nasal congestion (principal); R35.0 Frequency of micturition; Z13.9 Encounter for screening, unspecified

== ENCOUNTER 2025-02-10 12:25 | Outpatient (REF) | payer OTHER, SELFPAY ==
[2025-02-11 09:51] LABS: Chlamydia pneumoniae PCR Not Detected (Not Detect.); Coronavirus 229E PCR Not Detected (Not Detect.); Coronavirus HKU1 PCR Not Detected (Not Detect.); Coronavirus NL63 PCR Not Detected (Not Detect.); Coronavirus OC43 PCR Not Detected (Not Detect.); RSV PCR Not Detected (Not Detect.); Rhino/Enterovirus PCR Not Detected (Not Detect.)
[2025-02-11 09:56] LABS: Influenza A H1 PCR Not Detected (Not Detect.); Influenza A H1-2009 PCR Not Detected (Not Detect.); Influenza A H3 PCR Not Detected (Not Detect.); SARS-CoV-2 PCR Not Detected (Not Detect.)
== END 2025-02-10 12:26 | disposition home or self-care (01) ==
LOC: HO.LNP 12:25
PROVIDERS: PCP Internal Medicine; Visit Provider Physician Assistant Medical
DX: R09.81 Nasal congestion (principal); R35.0 Frequency of micturition; Z79.899 Other long term (current) drug therapy; Z13.89 Encounter for screening for other disorder
CPT/HCPCS: 81003; 87086; 87633; 99212

== ENCOUNTER 2025-02-24 13:10 | Outpatient (AMB) | payer OTHER, SELFPAY ==
--- OUTSIDE RECORDS SUMMARY | 2025-02-20 22:59 | XMS_ITS | Continuity of Care Document ---
Author Organization [facility] Address [address] [place] [address] [address] [place] [address]- Care Team Providers Care Sports Marketing Coordinator Name Role Phone Lilly LOPEZ, Sabrina Roman Primary Care Physician [place] [facility] [place] - 02/20/[address] [place], [place] [address] Attending Physician: Anupama Carson Admitting Physician: AdmtrAnupama Referring Physician: Admtr ArJose Encounter Type: Triage Allergies, Adverse Reactions, Alerts Substance Criticality Severity Reaction Reaction Severity Status sulfa drugs Stomach upset Acti ve Keflex anaphylaxis Active Macrobid Stomach upstet Activ e Naprosyn vomiting Active Bactrim weakness Active Contrast Dye Unable to assess criticality Unknown tongue numbness, severe headache, airway tightening Active Percocet 5/325 low pressure vomiting Active Kiwi anaphylaxis Active Immunizations Given and Recorded Vaccine Date Status Refusal Reason influenza virus vaccine, inactivated 04/07/15 Give n influenza virus vaccine, inactivated 02/02/14 Give n tetanus/diphtheria/pertussis, acel(Tdap) 03/01/10 Given tetanus/diphtheria/pertussis, acel(Tdap) 12/08/08 Given Medications acetaminophen 325 mg oral tablet 650 mg, By Mouth, Every 6 hours, Refills 0, Maintenance, 09/23/23 8:58:00 AM EDT, Partial fill upon patient request if the prescription is for a schedule II opioid drug. Start Date: 09/23/23 Status: Ordered Medication Dispense Status: Completed Total Allowed Fills: 1 Fills Dispensed: 0 Colace Capsule 100 mg, 1, capsule, By Mouth, 2 times a day, Refills 0, Maintenance, 09/23/23 8:59:00 AM EDT, Partialfill upon patient request if the prescription is for a schedule II opioid drug. Start Date: 09/23/23 Status: Ordered Medication Dispense Status: Completed Total Allowed Fills: 1 Fills Dispensed: 0 Doxycycline Tablet 100 mg, By Mouth, Every 12 hours, Maintenance, 09/24/23 9:14:00 AM EDT Start Date: 09/24/23 Status: Ordered Medication Dispense Status: Completed Total Allowed Fills: 1 Fills Dispensed: 0 Eliquis 2.5 mg oral tablet 1 tablet = 2.5 mg, By Mouth, 2 times a day, # 60 tablet, 0 Refills, Maintenance, 09/23/23 8:53:00 AM EDT, Tablet, Partial fill upon patient request if the prescription is for a schedule II opioid drug. Start Date: 09/23/23 Status: Ordered Medication Dispense Status: Completed Quantity: 60.0 Unit: tablet Total Allowed Fills: 1 Fills Dispensed: 0 ferrous sulfate 325 mg oral tablet TAKE 1 TABLET BY MOUTH DAILY TAKE WITH ORANGE JUICE OR VITAMIN-C TABLETS FOR BETTER ABSORPTION Start Date: 12/25/22 Status: Ordered Medication Dispense Status: Completed Total Allowed Fills: 1 Fills Dispensed: 0 loratadine 10 mg oral tablet 10 mg, 1, tablet, By Mouth, Daily, # 90 tablet, Refills 0, Maintenance, 09/10/23 9:14:00 AM EDT, Partial fill upon patient request if the prescription is for a schedule II opioid drug. Start Date: 09/10/23 Status: Ordered Medication Dispense Status: Completed Quantity: 90.0 Unit: tablet Total Allowed Fills: 1 Fills Dispensed: 0 MiraLax Powder 1 pack/packet = 17 Gm, By Mouth, Daily, PRN Constipation, 0 Refills, Maintenance, 09/20/23 8:28:00 AM EDT, Powder, Partial fill upon patient request if the prescription is for a schedule II opioid drug. Start Date: 09/20/23 Status: Ordered Medication Dispense Status: Completed Total Allowed Fills: 1 Fills Dispensed: 0 nystatin [id number] u/ml oral suspension 5 mL = 500,000 units, Swish and Spit, 4 times a day, 0 Refills, Maintenance, 09/25/23 9:30:00 AM EDT,Suspension, Partial fill upon patient request if the prescription is for a schedule II opioid drug. Start Date: 09/25/23 Status: Ordered Medication Dispense Status: Completed Total Allowed Fills: 1 Fills Dispensed: 0 pantoprazole 40 mg oral delayed release tablet = 40 mg, By Mouth, Daily, 0 Refills, Maintenance, 09/23/23 8:59:00 AM EDT, EC Tablet Start Date: 09/23/23 Status: Ordered Medication Dispense Status: Completed Total Allowed Fills: 1 Fills Dispensed: 0 senna 187 mg oral tablet 1 tablet = 8.6 mg, By Mouth, Daily at bedtime, PRN as needed for constipation, 0 Refills, Maintenance, 09/20/23 8:28:00 AM EDT, Tablet, Partial fill upon patient request if the prescription is for a schedule II opioid drug. Start Date: 09/20/23 Status: Ordered Medication Dispense Status: Completed Total Allowed Fills: 1 Fills Dispensed: 0 Problem List Condition Confirmation Course Effective Dates Status Health St atus Informant Abdominal pain Confirmed Active Adult ADHD Confirmed Active Asthma Confirmed Active Central sleep apnea Confirmed Active Epigastric pain Confirmed Active Fatty liver Confirmed Active GERD (gastroesophageal reflux disease) Confirmed Active Right hip pain Confirmed Active Irritable bowel syndrome Confirmed Active Morbid obesity with BMI of 45.0-49.9, adult Confirmed Active Morbid obesity Confirmed Active Narcolepsy Confirmed Active Nausea Confirmed Active Obstructive sleep apnea Confirmed Active Prediabetes Confirmed Active Severe obesity (BMI 35.0-39.9) with comorbidity Confirmed Active Upper respiratory infection Confirmed Active Social History Social History Type Response Smoking Status Never (less than 100 in lifetime) entered on: 09/05/23 Sex Sex Representation Female (finding) Patient Care team information Care Team Personnel Name: Lilly LOPEZ , Sabrina Roman Position: Reference Physician Member Role: PCP Address: [facility] [address] Telecom: Name: Carlie Hollins RN Position: S RN Member Role: Primary Care Nurse Name: Gayle Turpin RN Position: [facility] OB RN Member Role: Primary Care Nurse Name: Leonor Umana RN Position: [facility] RN Member Role: Primary Care Nurse Name: Juany Alarcon RN Position: [facility] RN Member Role: Primary Care Nurse Name: Connie Levi RN Position: [facility] RN Member Role: Primary Care Nurse Name: Maddi Valladares RN Position: [facility] RN Member Role: Primary Care Nurse Name: Batsheva Eubanks RN Position: [facility] RN Member Role: Primary Care Nurse Name: Florecita Vinson RN Position: [facility] RN Member Role: Primary Care Nurse Name: Sheila Messina RN Position: [facility] RN Member Role: Primary Care Nurse Name: Harleen Montero RN Position: [facility] RN Member Role: Primary Care Nurse Name: Jesenia Au RN Position: [facility] RN Member Role: Primary Care Nurse Name: Jeri Lilly RN Position: [facility] RN Member Role: Primary Care Nurse Name: Oneyda Domingo RN Position: [facility] RN Member Role: Primary Care Nurse Name: Yary Daly RN Position: [facility] ED RN W/OE and Tasks Member Role: Primary Care Nurse Care Team Related Persons Name: ANDREW HOOK Name: STEFFANIE SMITH Name: MANDI SMITH Insurance Providers Guarantor name: FRANCA SMITH Health Plan Information #: 1 Payer: [employer] Payer Identifier: [place] Member Number: [id number] Group Number: [id number] Subscriber Identifier: NA Relationship to Subscriber: self Coverage Type: NA Coverage Verification Date: Telecom: Address:
[2025-02-24 13:13] VITALS: BP 120/76; PULSE 68; RESP 16; TEMP 36.6; O2SAT 99; BMI 36.6
--- NOTE | 2025-02-24 13:13 | A.OFFPC_ITS ---
Vital Signs 02/24/25 13:13 Height 5 ft 5 in Weight 220 lb BMI 36.6 BP 120/76 Blood Pressure Location Rt brachial Position Sitting Respiration 16 Pulse 68 Pulse Source Pulse Oximeter Temp 97.8 F Temp Source Oral Pulse Oximetry (%) 99 Oxygen Delivery Method Room Air Intake Visit Reasons: Annual PE Intake Note: Pt is here today for her PE: Last mammogram 07/29/23, papsmear 03/21/20, colonoscopy 10/18/20 Skiver Blockers Required: No Allergies cephalexin (From KEFLEX) Allergy (Unknown, Verified 02/24/25 13:29) ANGIOEDEMA contrast dyes Allergy (Unknown, Verified 02/24/25 13:29) tongue numbness, headache, airway involvement, tongue numbness, headache, airway involvement kiwi (KIWI) Allergy (Unknown, Verified 02/24/25 13:29) ANAPHYLAXIS Sulfa (Sulfonamide Antibiotics) (SULFA (SULFONAMIDE ANTIBIOTICS)) Allergy (Unknown, Verified 02/24/25 13:29) anaphylaxis, diarrhea naproxen (Naprosyn) Adverse Reaction (Unknown, Verified 02/24/25 13:29) vomiting nitrofurantoin (Macrobid) Adverse Reaction (Unknown, Verified 02/24/25 13:29) dizziness oxycodone (Percocet) Adverse Reaction (Unknown, Verified 02/24/25 13:29) vomiting sulfamethoxazole Adverse Reaction (Unknown, Verified 02/24/25 13:29) diarrhea Medication List - Last Reconciled 02/24/25 by Sabrina Carr MD loratadine (Allergy Relief (loratadine)) 10 mg PO DAILY PRN pantoprazole 40 mg PO DAILY sertraline 25 mg PO DAILY sertraline 50 mg PO DAILY Tobacco use date assessed: 07/24/23 Dental Screening Dental Screen Date: 02/24/25 Did you have a dental visit in the last 12 months?: Yes Did you have a dental problem in the last 6 months where you did not have access to dental care?: No Was dental information given to patient?: Patient has dentist HPI Annual PE HPI Details 54 year-old lady with history of PE IBS, hypertension, hyperlipidemia, obstructive sleep apnea, anemia, and diet-controlled diabetes mellitus, status post laparoscopic sleeve gastrectomy with Dr. Looney on 04/03/2023, here today for physical exam [facility] Medical History Rosacea Varicose veins of bilateral lower extremities with pain Anemia Hidradenitis suppurativa Primary osteoarthritis of right hip Chronic hip pain, bilateral Annual visit for general adult medical examination with abnormal findings Diverticulosis History of small bowel obstruction Folliculitis Type 2 diabetes mellitus without complication, without long-term current use of insulin Morbid obesity Traumatic brain injury Fatty liver Chronic GERD Essential hypertension DARIELA (obstructive sleep apnea) Narcolepsy Dyslipidemia Surgical History History of sleeve gastrectomy History of colonoscopy History of hernia repair History of carpal tunnel release of both wrists Family History Father Diabetes mellitus HTN (hypertension) Mental health disorder Mother Diabetes mellitus HTN (hypertension) Son Autism Daughter Glioblastoma multiforme Maternal Grandfather Cancer of prostate Brother No problems noted. Sister No problems noted. Son No problems noted. Social History Housing: House Alcohol intake: former Patient Tobacco Use Status: Never used Tobacco e-Cigarette/Vaping Use: Never Used service: No Current occupational status: unemployed Cognitive needs: No Hearing needs: No Vision needs: No Questionnaire PHQ-9 Over the last 2 weeks, how often have you been bothered by any of the following problems? 1. Little interest or pleasure in doing things: not at all 2. Feeling down, depressed, or hopeless: not at all 3. Trouble falling or staying asleep, or sleeping too much: not at all 4. Feeling tired or having little energy: not at all 5. Poor appetite or overeating: not at all 6. Feeling bad about yourself - or that you are a failure or have let yourself or your family down: not at all 7. Trouble concentrating on things, such as reading the newspaper or watching television: not at all 8. Moving or speaking so slowly that other people could have noticed. Or the opposite - being so fidgety or restless that you have been moving around a lot more than usual: not at all 9. Thoughts that you would be better off or of hurting yourself in some way: not at all Total score: 0 Depression Screening Interpretation: Negative Depression Screening Done: Yes 78338 - PHQ-9 Billing: Yes Source: Developed by Drs. Jef Valentino, Karina Gray, Dimitrios Hutchinson and colleagues, with an educational malik from [employer]. Thrive Questionnaire Date Thrive assessed: 06/21/21 I am a: Patient What is your living situation today?: I have a steady place to live Within the past 12 months, did the food you bought not last and you didn't have the money to get more?: Never true Within the past 12 months, did you worry whether your food would run out before you got money to buy more?: Never true Do you have trouble paying for medicines?: No Do you have trouble getting transportation to medical appointments?: No Do you have trouble paying your heating and electricity bill?: No Do you have trouble taking care of your child, family member or friend?: No Do you have trouble with day-to-day activities such as bathing, preparing meals, shopping, managing finances, etc.?: No Are you currently unemployed and looking for a job?: No Are you interested in more education?: No Please select the resources that you would like help with: None THRIVE Score: 0 AUDIT C Alcohol Use Questionnaire (AUDIT-C) 1. How often do you have a drink containing alcohol?: Monthly or less 2. How many drinks containing alcohol do you have on a typical day when you are drinking?: 1 or 2 3. How often do you have six or more drinks on one occasion?: Never Total Score: 1 Score Reviewed/Action Taken: Yes DEMARIO-7 AMB Questionnaire DEMARIO-7 Date DEMARIO - 7 assessed: 06/21/21 Feeling nervous, anxious, or on edge: 0 = Not at all Not being able to stop or control worryin = Not at all Worrying too much about different things: 0 = Not at all Trouble relaxin = Not at all Being so restless that it is hard to sit still: 0 = Not at all Becoming easily annoyed or irritable: 0 = Not at all Feeling afraid as if something awful might happen: 0 = Not at all Total DEMARIO-7 score (0-4 normal; 5-9 mild; 10-14 moderate; 15-21 severe): 0 Source: Developed by Drs. Jef Valentino, Karina Gray, Dimitrios Hutchinson and colleagues, with an educational malik from [employer]. DEMARIO-7 Assessment Billing DEMARIO-7 Assessment Tool: DEMARIO-7 Assessment 66307 Review of Systems Eyes Details: goes to [facility] Resp Details: has DARIELA , sees [facility] sleep clinic Physical exam (Primary Care) Vital Signs: Last Vital Signs Temp 97.8 F 02/24/25 13:13 Pulse 68 02/24/25 13:13 Resp 16 02/24/25 13:13 BP 120/76 02/24/25 13:13 Pulse Ox 99 02/24/25 13:13 Oxygen Delivery Method Room Air 02/24/25 13:13 BMI result Body Mass Index 36.6 Tobacco/Smoking Status: Tobacco use Status Tobacco use date assessed 07/24/23 02/24/25 13:19 Patient Tobacco Use Status Never used Tobacco 02/24/25 13:14 e-Cigarette/Vaping Use Never Used 02/24/25 13:14 PHQ-9: PHQ-9 Score PHQ-9: Total score 0 02/24/25 13:30 Depression Screening Interpretation: Negative Thrive Assessment: Date of Thrive Assessment Date Thrive assessed 06/21/21 02/24/25 13:14 Advance Care Planning discussion: Completed/Scanned Date of discussion: 02/24/25 Who was present: Patient Forms completed: Health Care Proxy Time spent: 16-45 minutes Actual minutes spent: 2 Office Procedures Flu Questionnaire Does the patient have a severe egg allergy?: No Does the patient have severe life threatening allergies?: No Does the patient have a fever or illness today?: No Has the patient ever had Guillain-Limestone Syndrome?: No Has the patient ever had any past reaction to a flu shot?: No Immunizations Fluarix 7706-7011 (PF) 45 mcg (15 mcg x 3)/0.5 mL IM syringe Performing Provider: Sabrina Carr MD [place] [facility] [place] [facility] Administered by: Claudia Murrieta CMA on 02/24/25 13:48 Dose Route Admin Location Dispensed Lot Number Expiration Date [facility] Dairy Farm Manager 0.5 mL IM Right Deltoid 0.5 mL [id number] 10/19/25 [id number] Berggi VIS Given Date VIS Provided VIS Publication Date 02/24/25 Single Vaccine 24 Eligibility Eligibility Date Funding Source Not [facility] Eligible 02/24/25 Private Results Reviewed Results Reviewed: Name: Afshan Castro Age/Sex: 54/F : 1970 Unit#: [id number] Attend Dr: Sabrina Carr MD Re01/25/25 Status: DEP REF Location: [facility] Disch: SPEC : [id number] ASTON: 01/25/25 STATUS: COMP REQ : [id number] RECD: 01/25/[address]: Sabrina Carr MD COMP: 01/25/25 ENTERED: 01/25/[address]: ORDERED: CBC Auto Diff Test Result Flag Reference WBC 5.8 4.8-10.8 X10*3/uL RBC 4.37 4.20-5.50 X10*6/uL HGB 11.9 L 12.0-16.0 g/dl HCT 36.4 L 37.0-47.0 % MCV 83.3 80.0-98.0 fL MCH 27.2 27.0-33.0 pg MCHC 32.7 31.0-35.0 g/dl RDW 13.8 11.0-16.0 % PLT 350 # 160-400 X10*3/uL MPV 9.3 L 9.4-12.3 fL Neut Pct Auto 60.5 45-73 % ImGran Pct Auto 0.5 H 0.0-0.4 % Lymp Pct Auto 28.0 20-40 % [place] Pct Auto 6.9 2-11 % Eos Pct Auto 3.1 0-4 % Baso Pct Auto 1.0 0-2 % NRBC Pct Auto 0.0 0.0-0.2 /100WBC ANC Neut Abs # 3.5 2.0-8.3 x10*3/uL ImGran Abs Auto 0.03 0.00-0.03 X 10*3/uL Lymph Abs Auto 1.6 1.2-4.9 X10*3/uL [place] Abs Auto 0.4 0.1-1.2 X10*3/uL Eos Abs Auto 0.2 0.0-0.4 X10*3/uL Baso Abs Auto 0.1 0.0-0.2 X10*3/uL NRBC Abs Auto 0.000 0.0-0.012 X10*3/uL Name: Afshan Castro Age/Sex: 54/F : 1970 Unit#: [id number] Attend Dr: Sabrina Carr MD Re01/25/25 Status: DEP [facility] Disch: SPEC : [id number] ASTON: 01/25/25 STATUS: COMP REQ : [id number] RECD: 01/25/[address]: Sabrina Carr MD COMP: 01/25/25 ENTERED: 01/25/[address]: ORDERED: Met Prof Fast, IRON PROF, AST, ALT, Lipid Panel, Vitamin D 25-OH Test Result Flag Reference Sodium 141 135-145 mmol/L Potassium 4.0 3.3-5.1 mmol/L CL 109 H 96-108 mmol/L CO2 26 22-29 mmol/L Gap 10 L 12-20 BUN 18 H 9-16 mg/dL Creat 0.67 0.5-1.4 mg/dL eGFR > 60 Chronic Kidney Disease: Estimated GFR < 60 mL/min/1.73m2 Severe Kidney Disease: Estimated GFR < 15 mL/min/1.73m2 FBS 81 60-99 mg/dL CA 8.9 # 8.4-10.2 mg/dL Iron 35 30-160 mcg/dL TIBC 289 228-428 mcg/dL Saturation 12 L 15-50 % UIBC 254 ug/dL AST (GOT) 22 5-31 U/L ALT (GPT) 17 0-31 U/L Triglyceride 81 <150 mg/dL Desirable Triglyceride: less than 150 mg/dL Borderline High Triglyceride 150-199 mg/dL High Triglyceride: 200-499 mg/dL Very High Triglyceride: greater than or equal to 5OO mg/dL Cholesterol 182 <200 mg/dL Desirable Cholesterol: less than 200 mg/dL Borderline High Cholesterol: 200-239 mg/dL High Cholesterol: greater than 239 mg/dL LDL Calculated 113 H <100 mg/dL Desirable LDL: less than 100 mg/dL Near Optimal/Above Optimal LDL: 110-129 mg/dL Borderline High LDL: 130-159 mg/dL High LDL: 160-189 mg/dL Very High LDL: greater than or equal to 190 mg/dL HDL 53 >40 mg/dL Desirable HDL: greater than 40 mg/dL Note: This HDL assay may give artificially low results in patients with liver disease. Vitamin D 25-OH 40.0 >30 ng/mL Health Based Reference Values* < 20 ng/mL Deficient 20-30 ng/mL Insufficient > 30 ng/mL Sufficient Coding Level of Care Code Est Pt Prev Care 40-64y(94249) Diagnoses Essential hypertension I10 Dyslipidemia E78.5 Type 2 diabetes mellitus without complication, without long-term current use of insulin E11.9 Anemia, unspecified type D64.9 Anemia type: unspecified type DARIELA (obstructive sleep apnea) G47.33 Rosacea L71.9 Annual visit for general adult medical examination with abnormal findings Z00.01 Irritable bowel syndrome with both constipation and diarrhea K58.2 Irritable bowel syndrome type: with both diarrhea and constipation Screening for malignant neoplasm of cervix Z12.4 Advance directive discussed with patient Z71.89 Additional Codes DEMARIO-7 Assessment Billing - DEMARIO-7 Assessment Tool: DEMARIO-7 Assessment 71045 ([id number]) PHQ-9 - 37874 - PHQ-9 Billing: Yes ([id number]) Vital Signs *Quality* - Advance Care Planning discussion: Completed/Scanned ([id number]) Vital Signs *Quality* - Time spent: 16-45 minutes ([id number]) Assessment & Plan Assessment & Plan (1) Essential hypertension: Code(s): I10 - Essential (primary) hypertension Category: Medical (2) Dyslipidemia: Code(s): E78.5 - Hyperlipidemia, unspecified Category: Medical (3) Type 2 diabetes mellitus without complication, without long-term current use of insulin: Code(s): E11.9 - Type 2 diabetes mellitus without complications Category: Medical (4) Anemia: Code(s): D64.9 - Anemia, unspecified Category: Medical Qualifiers: Anemia type: unspecified type Qualified Code(s): D64.9 - Anemia, unspecified (5) DARIELA (obstructive sleep apnea): Code(s): G47.33 - Obstructive sleep apnea (adult) (pediatric) Category: Medical (6) Rosacea: Comment: [facility]anmol at [facility] dermatology Code(s): L71.9 - Rosacea, unspecified Category: Medical (7) Annual visit for general adult medical examination with abnormal findings: Code(s): Z00.01 - Encounter for general adult medical examination with abnormal findings Category: Medical Plan: flu vaccine given (8) IBS (irritable bowel syndrome): Code(s): K58.9 - Irritable bowel syndrome, unspecified Category: Medical Qualifiers: Irritable bowel syndrome type: with both diarrhea and constipation Qualified Code(s): K58.2 - Mixed irritable bowel syndrome (9) Screening for malignant neoplasm of cervix: Code(s): Z12.4 - Encounter for screening for malignant neoplasm of cervix (10) Advance directive discussed with patient: Code(s): Z71.89 - Other specified counseling Plan: Initiated the conversation about Advanced Directives. Advanced Directives help patients prepare for current and future decisions about their medical treatment and place of care. Discussed with patient that it is a process where a patients current condition and prognosis are reviewed, their wishes for information regarding their illness are elicited, and likely medical dilemmas are presented and options discussed. Healthcare proxy form completed today. The form can be amended as needed, reviewed yearly and make changes as needed Orders: Orders IRON PROFILE 06/20/25 D64.9 - Anemia, unspecified, E11.9 - Type 2 diabetes mellitus without complications, E78.5 - Hyperlipidemia, unspecified, I10 - Essential (primary) hypertension Influenza [id number] Immunization Today Z23 - Encounter for immunization Hemoglobin A1c 06/20/25 D64.9 - Anemia, unspecified, E11.9 - Type 2 diabetes mellitus without complications, E78.5 - Hyperlipidemia, unspecified, I10 - Essential (primary) hypertension Microalbumin, Random (w Creat) 06/20/25 D64.9 - Anemia, unspecified, E11.9 - Type 2 diabetes mellitus without complications, E78.5 - Hyperlipidemia, unspecified, I10 - Essential (primary) hypertension Lipid Panel 06/20/25 D64.9 - Anemia, unspecified, E11.9 - Type 2 diabetes mellitus without complications, E78.5 - Hyperlipidemia, unspecified, I10 - Essential (primary) hypertension Basic Metabolic Panel Fasting 06/20/25 D64.9 - Anemia, unspecified, E11.9 - Type 2 diabetes mellitus without complications, E78.5 - Hyperlipidemia, unspecified, I10 - Essential (primary) hypertension Aspartate Amino Transferase 06/20/25 D64.9 - Anemia, unspecified, E11.9 - Type 2 diabetes mellitus without complications, E78.5 - Hyperlipidemia, unspecified, I10 - Essential (primary) hypertension Alanine Aminotransferase 06/20/25 D64.9 - Anemia, unspecified, E11.9 - Type 2 diabetes mellitus without complications, E78.5 - Hyperlipidemia, unspecified, I10 - Essential (primary) hypertension Complete Blood Count Auto Diff 06/20/25 D64.9 - Anemia, unspecified, E11.9 - Type 2 diabetes mellitus without complications, E78.5 - Hyperlipidemia, unspecified, I10 - Essential (primary) hypertension Referrals LEGAL OFFICE ADMINISTRATOR Referral Z12.4 - Encounter for screening for malignant neoplasm of cervix Medications: New ferrous sulfate 325 mg PO DAILY 30 tabs 5RF
--- OUTSIDE RECORDS SUMMARY | 2025-02-24 15:57 | XMS_ITS | Clinical Summary ---
Author Organization [facility] Address [address] [place] [address] Care Team Providers Care Finance Business Partner Name Role Phone Sabrina Carr MD Primary [...] EDT - 12/08/2024 3:04 PM EDT Emergency [facility] Emergency Department [address] [place] [id number] Moi Garg MD Pain of upper abdomen [...] Diabetes Screening 12/09/2027 12/08/2024, 0 09/30/2023, 09/28/2023 Procedures * Due to [place] state law, this organization might not be sharing [...] Last 3 Months Results * Due to [place] state law, this organization might not be sharing [...] to obtain the completed interpretation. Workstation ID: [id number] Up-to-date CT equipment and radiation dose reduction [...] is in satisfactory alignment. Resulting Agency Comment [id number] Procedure Note Geoffrey Kaur MD - 12/08/2024 [...] possible to obtain thecompleted interpretation. Workstation ID: [id number] Up-to-date CT equipment and radiation dose reduction techniques wereemployed. CTDIvol: 16.7 mGy. DLP: 831 mGy-cm. us Moi Garg MD IM CT PROCEDURES Final Resul t * Troponin T, High Sensitivity X2 (now + 2hrs) (12/08/2024 1:02 PM EDT) Only the most recent of2 resultswithin the time period is included. Troponin T High Sensitivity 6 6 - 14 ng/L 12/08/2024 2:06 PM EDT [facility] Comment: Tq-Xkmsgphk-W level of 52 ng/L or higher at [...] be evaluated in line with the 4th Dewart Definition of AMI. Troponin baseline and serial [...] ORDERABLES Final R esult Performing Organization Address [facility]/ZIP Co de Phone Number [facility] [address] [address], [place] [phone] * hCG, Qualitative, Serum (12/08/2024 1:02 PM EDT) HCG Qualitative, Serum Negative Negative [place] [facility] 12/08/2024 1:24 PM EDT [facility] Blood Structure of peripheral vein / Unknown Venipuncture / Unknown 12/08/2024 1:02 PM EDT 12/08/2024 1:03 PM EDT Moi Garg MD LAB BLOOD ORDERABLES Final Re sult Performing Organization Address [facility] Co de Phone Number [facility] [address] [address], [place] [phone] * (ABNORMAL) CBC Auto Differential (12/08/2024 11:43 AM EDT) WBC 7.8 4.8 - 10.8 10*3/uL 12/08/2024 11:50 AM EDT [facility] RBC 4.48 4.20 - 5.40 10*6/uL 12/08/2024 11:50 AM EDT [facility] Hemoglobin 12.6 11.7 - 15.5 g/dL 12/08/2024 11:50 AM EDT [facility] Hematocrit 36.7 35.7 - 45.8 % 12/08/2024 11:50 AM EDT [facility] MCV 81.9 81.0 - 99.0 fL 12/08/2024 11:50 AM EDT [facility] MCH 28.1 26.0 - 34.0 pg 12/08/2024 11:50 AM EDT [facility] MCHC 34.3 31.0 - 36.0 g/dL 12/08/2024 11:50 AM EDT [facility] RDW 13.4 12.0 - 15.0 % 12/08/2024 11:50 AM EDT [facility] RDW Standard Deviation 40.4 36.4 - 46.3 fL 12/08/2024 11:50 AM EDT [facility] Platelets 351 140 - 440 10*3/uL 12/08/2024 11:50 AM EDT [facility] MPV 9.0(L) 9.4 - 12.3 fL 12/08/2024 11:50 AM EDT [facility] Neutrophil % 68.8 50.0 - 75.0 % 12/08/2024 11:50 AM EDT [facility] Immature Grans % 0.3 0.0 - 0.9 % 12/08/2024 11:50 AM EDT [facility] Lymphocyte % 21.5 20.0 - 44.0 % 12/08/2024 11:50 AM EDT [facility] Monocyte % 7.0 0.0 - 14.0 % 12/08/2024 11:50 AM EDT [facility] Eosinophil % 1.8 0.0 - 5.0 % 12/08/2024 11:50 AM EDT [facility] Basophil % 0.6 0.0 - 2.0 % 12/08/2024 11:50 AM EDT [facility] Neutrophil # 5.38 1.80 - 7.70 10*3/uL 12/08/2024 11:50 AM EDT [facility] Immature Grans # <0.03 0.00 - 0.03 10*3/uL 12/08/2024 11:50 AM EDT [facility] Lymphocyte # 1.70 1.00 - 4.75 10*3/uL 12/08/2024 11:50 AM EDT [facility] Monocyte # 0.60 0.00 - 0.60 10*3/uL 12/08/2024 11:50 AM EDT [facility] Eosinophil # 0.10 0.00 - 0.80 10*3/uL 12/08/2024 11:50 AM EDT [facility] Basophil # 0.10 0.00 - 0.20 10*3/uL 12/08/2024 11:50 AM EDT [facility] nRBC % 0.0 0 - 0 /100 WBCs 12/08/2024 11:50 AM EDT [facility] nRBC # <0.01 0.00 - 0.13 10*3/uL 12/08/2024 11:50 AM EDT [facility] Blood Structure of peripheral vein / Unknown Venipuncture / Unknown 12/08/2024 11:43 AM EDT 12/08/2024 11:47 AM EDT us Giovanna KRAUS LAB BLOOD ORDERABLES Final R esult Performing Organization Address [facility] Co de Phone Number [address] [address], [place] [phone] * Lipase (12/08/2024 11:43 AM EDT) Lipase 26 13 - 60 U/L 12/08/2024 12:22 PM EDT [facility] Blood Structure of peripheral vein / Unknown Venipuncture / Unknown 12/08/2024 11:43 AM EDT 12/08/2024 11:47 AM EDT us Giovanna KRAUS LAB BLOOD ORDERABLES Final R esult Performing Organization Address City/[facility]/ZIP Co de Phone Number [facility] [address] [place] [address], [place] [phone] * (ABNORMAL) CMP - Comprehensive Metabolic Panel (12/08/2024 11:43 AM EDT) NA 137 136 - 145 mmol/L 12/08/2024 12:22 PM EDT [facility] K 4.3 3.5 - 5.1 mmol/L 12/08/2024 12:22 PM EDT [facility] Cl 104 98 - 109 mmol/L 12/08/2024 12:22 PM EDT [facility] CO2 23 22 - 32 mmol/L 12/08/2024 12:22 PM EDT [facility] Anion Gap 14 >=0 12/08/2024 12:22 PM EDT [facility] Glucose 90 60 - 99 mg/dL 12/08/2024 12:22 PM EDT [facility] Creatinine 0.87 0.50 - 1.12 mg/dL 12/08/2024 12:22 PM EDT [facility] Calcium 9.9 8.4 - 10.4 mg/dL 12/08/2024 12:22 PM EDT [facility] Total Protein 6.8 6.6 - 8.7 g/dL 12/08/2024 12:22 PM EDT [facility] Albumin 4.0 3.5 - 5.0 g/dL 12/08/2024 12:22 PM EDT [facility] Bilirubin, Total 0.6 0.2 - 1.2 mg/dL 12/08/2024 12:22 PM EDT [facility] Alkaline Phosphatase 87 40 - 129 U/L 12/08/2024 12:22 PM EDT [facility] AST 16 0 - 33 U/L 12/08/2024 12:22 PM EDT [facility] ALT 14 <=33 U/L 12/08/2024 12:22 PM EDT [facility] BUN 18 6 - 20 mg/dL 12/08/2024 12:22 PM EDT [facility] eGFR 80 >=60 mL/min/1. 73m2 12/08/2024 12:22 PM EDT [facility] Comment:The estimated glomer ular filtration rate [...] - 4.2 g/dL 12/08/2024 12:22 PM EDT [facility] A/G Ratio 1.4(L) 1.5 - 3.0 12/08/2024 12:22 PM EDT [facility] Blood Structure of peripheral vein / Unknown Venipuncture / Unknown 12/08/2024 11:43 AM EDT 12/08/2024 11:47 AM EDT Giovanna KRAUS LAB BLOOD ORDERABLES Final R esult [facility] [address] [place] [address] [address] [place] [address], * (ABNORMAL) Microscopic Urinalysis Only (12/08/2024 11:13 AM EDT) RBC, Urine None Seen None Seen, 0-2 /HPF 12/08/2024 12:07 PM EDT [facility] WBC, Urine 0-2 None Seen, 0-2 /HPF 12/08/2024 12:07 PM EDT [facility] Squamous Epithelial Cells, Urine 0-2 /HPF 12/08/2024 12:07 PM EDT [facility] Bacteria, Urine Trace(A) None Seen /HPF 12/08/2024 12:07 PM EDT [facility] Urine Urine specimen collection, clean catch / Unknown Non-Blood Collection / Unknown 12/08/2024 11:13 AM EDT 12/08/2024 11:54 AM EDT us Moi Garg MD LAB URINE ORDERABLES Final Re sult [facility] [address] [place] [address] [address] [place] [address], [place] [phone] * (ABNORMAL) Urinalysis W/Reflex to Microscopic & Culture (12/08/2024 11:13 AM EDT) Color, Urine Yellow Yellow 12/08/2024 11:54 AM EDT [facility] Clarity, Urine Clear Clear 12/08/2024 11:54 AM EDT [facility] Specific [place], Urine <=1.005 1.005 - 1.030 12/08/2024 11:54 AM EDT [facility] pH, Urine 6.0 5.0 - 8.0 12/08/2024 11:54 AM EDT [facility] Protein, Urine Negative Negative mg/dL 12/08/2024 11:54 AM EDT [facility] Glucose, Urine Negative Negative mg/dL 12/08/2024 11:54 AM EDT [facility] Ketones, Urine Negative Negative mg/dL 12/08/2024 11:54 AM EDT [facility] Bilirubin, Urine Negative Negative 12/08/2024 11:54 AM EDT [facility] Blood, Urine Negative Negative 12/08/2024 11:54 AM EDT [facility] Nitrite, Urine Negative Negative 12/08/2024 11:54 AM EDT [facility] Urobilinogen, Urine 0.2 0.2 - 1.0 E.U./dL 12/08/2024 11:54 AM EDT [facility] Leukocyte Esterase, Urine Trace(A) Negative 12/08/2024 11:54 AM EDT [facility] Urine Urine specimen collection, clean catch / Unknown Non-Blood Collection / Unknown 12/08/2024 11:13 AM EDT 12/08/2024 11:44 AM EDT Narrative [facility] - 12/08/2024 11:54 AM EDT Some urinalysis results will not meet the criteria for reflex urine culture although certain urine values may be abnormal. Additional testing can be ordered by the provider if clinically warranted. us Moi Garg MD LAB URINE ORDERABLES Final Re sult Performing Organization Address City/[facility]/ZIP Co de Phone Number [facility] [address] [place] [address] [address] [place] [address], [place] [phone] * ECG 12 lead (12/08/2024 10:54 AM EDT) Ventricular Rate EKG 61 BPM MUSE EKG Atrial Rate 61 BPM MUSE EKG NJ Interval 150 ms MUSE EKG QRS Interval 92 ms MUSE EKG QT Interval 426 ms MUSE EKG QTC Interval 428 ms MUSE EKG P [place] 26 degrees MUSE EKG R [place] 42 degrees MUSE EKG T Wave [place] 24 degrees MUSE EKG 12/08/2024 10:5 4 AM EDT 12/08/2024 2:30 PM EDT Impressions MUSE EKG - 12/08/2024 2:30 PM EDT Sinus rhythm with premature ventricular complexes Confirmed by Zeb Deleon ([id number]) on 12/08/2024 2:30:06 PM Narrative Procedure Note Zeb Deleon MD - 12/08/2024 IMPRESSION: Sinus rhythm with premature ventricular complexes Confirmed by Zeb Deleon ([id number]) on 12/08/2024 2:30:06 PM us Moi Garg MD ECG ORDERABLES Final Result Performing Organization Address City/[facility]/ZIP Co de Phone Number MUSE EKG from Last 3 Months Insurance [employer] Care Teams Finance Business Partner Relationship Specialty Start Date End Date Sabrina Carr MD [address] [facility] [place] [id number] PCP - General Internal Medicine 12/08/24
--- OUTSIDE RECORDS SUMMARY | 2025-02-24 15:57 | XMS_ITS | Clinical Summary ---
Author Organization [facility] Address [address] [place] [address] Phone Care Team Providers Care Student Nurse Name Role Phone Sabrina Carr MD Primary [...] VACCINE (#1) 2024 COVID-19 VACCINE ( - 2024-2 6 season) 2024 SCREENING FOR DIABETES 09/27/2026 09/28/2023 RSV VACCINE (1 - 1-dose 75+ series) 2047 HEPATITIS A VACCINES Aged Out No long [...] Devices Not on file Insurance [place] [address] [place] [address] ACO Member Subscriber Plan / Payer (Ef fective 2018-Present) Name:Afshan Castro Relation to Subscriber:Self Name:Afshan Castro Payer ID:[id number] Group ID:[id number] Type:Medicaid Address: [place] [id number] [place] [address] [place] [address] [place] [address] [place] [address] [place] [address] [place] [address] [place] [address] [place] [address] [place] [address] [place] [address] [place] [address] ACO Care Teams Student Nurse Relationship Specialty Start Date End Date aSbrina Carr MD [facility] [place] [address] PCP - General Internal Medicine 11/26/18 Additional Source Comments The information contained in this document represents components of the legal health record. It is not the complete legal health record.[facility]
== END 2025-02-24 14:33 | disposition home or self-care (01) ==
LOC: HO.HMCC 13:10
PROVIDERS: PCP Internal Medicine; Visit Provider Internal Medicine
DX: Z23 Encounter for immunization (principal)

== ENCOUNTER → 2025-02-24 13:10 | Outpatient (BNVA) | payer OTHER, SELFPAY | PROVIDERS: PCP Internal Medicine; Visit Provider Internal Medicine | DX: Z00.01 Encounter for general adult medical examination with abnormal findings (principal); R53.83 Other fatigue; F41.9 Anxiety disorder, unspecified; E11.9 Type 2 diabetes mellitus without complications; I10 Essential (primary) hypertension; E78.5 Hyperlipidemia, unspecified; D64.9 Anemia, unspecified; G47.33 Obstructive sleep apnea (adult) (pediatric); L71.9 Rosacea, unspecified; Z23 Encounter for immunization; Z71.89 Other specified counseling | CPT/HCPCS: 90471; 90656; 96127; 99396; 99497 ==

== ENCOUNTER 2025-04-05 22:04 | Emergency (ER) | payer OTHER, SELFPAY ==
--- OUTSIDE RECORDS SUMMARY | 2025-03-16 00:19 | XMS_ITS | Continuity of Care Document ---
Author Organization [facility] Address [address] [place] [address] Dr [address] [place] [address] Phone Care Team Providers Care Diabetes Territory Manager Name Role Phone Yobany Weinberg DO Unavailable Unavailable Allergies, Adverse Reactions, Alerts Substance Reaction Status Criticality CEPHALEXIN MONOHYDRATE Active No In formation Advance Directives Directive Yes / No Effective Date File Name No Information Encounters Encounter Description Practice Location Reason(s) For Visit Diagnoses Date Provider Encounter Disposition [facility] MD MUÑOZ, [address] [place] [address] Dr Garcia [address], [id number], [place] tel:[phone] [facility] No Information 5 Sultana Goodman. [address] [place] [address], [facility] [address], [place], [place], [id number], [place]. tel:[phone] [facility] MD MUÑOZ, [address] [place] [address] Dr Garcia [address], [id number], [place] tel:[phone] [place] - [place] Hereditary lymphedemaOb esity, class 3Obesity, Class 3Venous insufficienc y (chronic) (peripheral) Pruritus, unspecifiedC hronic venous hypertension (idiopathic) without complication s of bilateral lower extremityLym phedema, not elsewhere classified 5 Isidro LOPEZ, RVT, GABRIEL Fuchs. [address] [facility], [address], [place], [place], [id number], [place]. tel:[phone] [facility], [address] [place] [address] Dr Garcia [address], [id number], [place] tel:[phone] CVR - [facility] Chronic venous hypertension (idiopathic) with other complication s of bilateral lower extremity Nov- 5 Isidro LOPEZ RVT, GABRIEL Fuchs. [address] [place] [address], [place] [address], [facility] [place], [id number], [place]. tel:[phone] [facility], [address] [place] [address] Dr Garcia [address], [id number], [place] tel:[phone] [facility] - [facility] Pruritus, unspecifiedL ocalized edemaCramp and spasmRestles s legs syndromeVeno us insufficienc y (chronic) (peripheral) Jan-3 4 Isidro LOPEZ RVT, GABRIEL Fuchs. [address] [place] [address], [facility] [place] [id number], [place]. tel:[phone] [facility], [address] [place] [address] Dr Garcia [address] 999[place], [id number], [place] tel:[phone] [facility] Varicose veins of bilateral lower extremities with pain Jan-3 4 Isidro LOPEZ RVT, GABRIEL Fuchs. [address] [place] [address], [facility] [place], [id number], [place]. tel:[phone] [facility], [address] [place] [address] Dr Garcia 1000[facility] 999[place], [id number], [place] tel:[phone] CVR - [facility] Encounter for follow-up examination after completed treatment for conditions other than malignant nePain in left leg Jan-0 4 Isidro LOPEZ RVT, GABRIEL Fuchs. [address] [place] [address], [facility] [place], [id number], [place]. tel:[phone] [facility], [address] [place] [address] Dr Garcia 1000Suite [place], [id number], [place] tel:[phone] CVR - [facility] Chronic venous hypertension (idiopathic) without complication s of bilateral lower extremity Sep-2 4 Isidro LOPEZ RVT, GABRIEL Fuchs. [address] [place] [address], [address], [place], [id number], [place]. tel:[phone] [facility], [address] [place] [address] Dr Garcia 1000Suite [place] MD, [id number], [place] tel:[phone] CVR - [place] Varicose veins of left lower extremity with other complication s Sep-2 4 Marie FACUNDO Cathie. [address] [facility], [address], [place], [id number], [place]. tel:[phone] [facility], [address] [place] [address] Dr Garcia 1000Suite [place], [id number], [place] tel:[phone] [facility] - [place] Encounter for follow-up examination after completed treatment for conditions other than malignant nePain in left leg Sep-2 4 Isidro LOPEZ RVT, GABRIEL Fuchs. [address] [place] [address], [address], [place], [id number], [place]. tel:[phone] [facility], [address] [place] [address] Dr Garcia [address]Suite [place] MD, [id number], [place] tel:[phone] [facility] - [place] Varicose veins of left lower extremity with other complication s Sep-2 4 Isidro LOPEZ RVT, GABRIEL Fuchs. [address] [place] [address], [address], [place], [id number], [place]. tel:[phone] [facility], [address] [place] [address] Dr Garcia [address]Suite [place] MD, [id number], [place] tel:[phone] [facility] - [place] Venous insufficienc y (chronic) (peripheral) Sep-1 4 Isidro LOPEZ RVT, GABRIEL Fuchs. [address] [place] [address], [address], [place], [id number], [place]. tel:[phone] [facility], [address] [place] [address] Dr Garcia [address] 1000[place], [id number], [place] tel:[phone] [facility] - [place] Varicose veins of left lower extremity with other complication s Sep- 4 Isidro LOPEZ RVT, GABRIEL Fuchs. [address] [place] [address], [place], [place], [id number], [place]. tel:[phone] [facility], [address] [place] [address] Dr Garcia [address] 999[place], [id number], [place] tel:[phone] [facility] - [place] Varicose veins of left lower extremity with other complication s Sep- 4 Isidro LOPEZ RVT, GABRIEL Fuchs. [address] [place] [address], [place], [place], [id number], [place]. tel:[phone] [facility], [address] [place] [address] Dr Garcia [address]Suite [place], [id number], [place] tel:[phone] [facility] - [place] Encounter for follow-up examination after completed treatment for conditions other than malignant neoplasmVari cose veins of right lower extremity with pain Sep- 4 Isidro LOPEZ RVT, GABRIEL Fuchs. [address] [place] [address], [place], [place], [id number], [place]. tel:[phone] [facility], [address] [place] [address] Dr Garcia [address] 999[place], [id number], [place] tel:[phone] [facility] - [place] Varicose veins of right lower extremity with inflammation Sep- 4 Isidro LOPEZ RVT, GABRIEL Fuchs. [address] [place] [address], [facility] [place], [place], [id number], [place]. tel:[phone] [facility], [address] [place] [address] Dr Garcia [address]Suite [place], [id number], [place] tel:[phone] [facility] - [place] Encounter for follow-up examination after completed treatment for conditions other than malignant neoplasmVari cose veins of right lower extremity with pain Sep-1 4 Isidro LOPEZ RVT, GABRIEL Fuchs. [address] [place] [address], Suite [facility], [place], [id number], [place]. tel:[phone] [facility], [address] [place] [address] Dr Garcia [address] 1000[place], [id number], [place] tel:[phone] [facility] - [place] Chronic venous hypertension (idiopathic) with inflammation of right lower extremity Sep-0 4 Isidro LOPEZ RVT, GABRIEL Fuchs. [address] [place] [address], [place] [address], [place], [id number], [place]. tel:[phone] [facility], [address] [place] [address] Dr Garcia [address] 1000[place]eta [place], [id number], [place] tel:[phone] [facility] - [place] No Information Sep-0 4 Isidro LOPEZ RVT, GABRIEL Fuchs. [address] [place] [address], [place], [id number], [place]. tel:[phone] [facility], [address] [place] [address] Dr Garcia [address] 1000[place], [id number], [place] tel:[phone] [facility] - [place] Varicose veins of right lower extremity with other complication s Sep-0 3- 4 Isidro LOPEZ RVT, GABRIEL Fuchs. [address] [place] [address], [place] [address], [place], [id number], [place]. tel:[phone] [facility], [address] [place] [address] Dr Garcia [address] 1000[place], [id number], [place] tel:[phone] [facility] - [place] Varicose veins of bilateral lower extremities with other complication s Apr-0 8 4 Isidro LOPEZ RVT, GABRIEL Fuchs. [address] [place] [address], [place] [address], [place], [id number], [place]. tel:[phone] [facility], [address] [place] [address] Dr Garcia [address] 1000[place], [id number], [place] tel:[phone] [facility] [place] Varicose veins of bilateral lower extremities with other complication Chanel in right lower legPain in left lower legPain in right legRestless legs syndromePrur itus, unspecifiedP ain in left legCramp and spasmLocaliz ed edema 4 Isidro LOPEZ RVT, GABRIEL Fuchs. [address] [facility], [address], [place], [id number], [place]. tel:[phone] [facility], [address] [facility] [address], [place], [id number], [place] tel:[phone] [facility] [place] Chronic venous hypertension (idiopathic) with other complication s of bilateral lower extremity 4 Isidro LOPEZ, MIGUEL, GABRIEL Fuchs. [address] [facility], [address], [place], [id number], [place]. tel:[phone] Family History Family Member Type Diagnosis Age At Onset No Information Payers Payer name Insurance type Identifiers Authorization(s) Com ments [facility] r ID: [id number] Name: Coverage Status Eligibility Check on: [id number] nship to Subscriber: selfPayer Address: [facility] [address], [place], [address], Phone: [phone] Social History Type Description Quantity Date Captured Comments Sex Female Smoking Status No Information Current Gender Female (finding) Chief Complaint And Reason For Visit No Information Plan Of Treatment Date Type Action Status Goal Diet education completed Goal Diet education completed Goal Diet education [...] Body mass index (BMI) 40.0-44.9, adult) ordered Appointment Afshan Castro BOOKED Appointment Afshan Castro BOOKED Appointment Afshan Castro BOOKED Appointment Afshan Castro BOOKED Appointment Afshan Castro BOOKED Appointment Afshan Castro BOOKED Appointment Afshan Castro BOOKED Appointment Afshan Castro BOOKED History Of Present Illness Encounter Date Complaint History Of Prese nt Illness No Information Functional Status Date Description Comments No Information Instructions Date Instruction Additional Infor mation Compression stocking usage as conservative measure Related to Chronic venous hypertension (idiopathic) without complications of bilateral lower extremity Patient education booklet given Related to Chronic venous hypertension (idiopathic) without complications of bilateral lower extremity Lifestyle education Related to B matt mass index (BMI) 40.0-44.9, adult Giving Encouragement to exercise Related to Body mass index (BMI) 40.0-44.9, adult Diet education Related to Body mass index (BMI) 40.0-44.9, adult Compression stocking usage as conservative measure Related [...]
[2025-04-05 22:11] VITALS: BP 162/88; PULSE 75; RESP 18; TEMP 36.7; O2SAT 97; BMI 38.6
[2025-04-05 22:43] LABS: IDNOW Serial# 6674DD1D; Strep A Nucleic Acid Negative (Negative)
[2025-04-05 22:53] LABS: IDNOW Serial# 152EDE1D
[2025-04-05 22:54] LABS: Influenza B2 Negative (Negative)
--- OUTSIDE RECORDS SUMMARY | 2025-04-05 23:03 | XMS_ITS | Clinical Summary ---
Author Organization [facility] Address [address] [place] [address] Care Team Providers Care Sheet Mill Supervisor Name Role Phone Sabrina Carr MD Primary Care Provider Allergies Active Allergy Reactions Criticality Noted Date Comments Kiwi Unknown 12/08/2024 Oxycodone-Acetaminophen Blood pressure, low 10/2023 Medications sertraline (ZOLOFT) 50 mg tablet Take 75 mg by mouth once a day. 07/16/[address] (PROTONIX) 20 mg tablet Take 1 tablet (20 mg total) by mouth once a day. 20 tablet 12/08/2024 Active Social History Tobacco Use Types Packs/Day Years [...] Drivers of Health Radha ual Screening 2024 Influenza Vaccine (#1) 2024 , 05/01/2022, 05/12/2021, Additional history exists COVID-19 Vaccine (4 - 2024-2 6 season) 2024 05/12/2021, 07/19/2020, 06/21/2020 Diabetes Screening 12/09/2027 12/08/2024, 0 09/30/2023, 09/28/2023 Procedures * Due to [place] [employer] law, this organization might not be sharing negative HIV tests. Procedure Name Priority Date/Time Associated Diagnosis Comments COMPREHENSIVE METABOLIC PANEL STAT 12/08/2024 11:43 AM EDT from Last 3 Months or Most Recently Relevant to Health Maintenance Results * Due to [place] [employer] law, this organization might not be sharing negative HIV tests. * (ABNORMAL) CMP - Comprehensive Metabolic Panel (12/08/2024 11:43 AM EDT) NA 137 136 - 145 mmol/L 12/08/2024 12:22 PM EDT [facility] K 4.3 3.5 - 5.1 mmol/L 12/08/2024 12:22 PM EDT [facility] Cl 104 98 - 109 mmol/L 12/08/2024 12:22 PM EDT [facility] CO2 23 22 - 32 mmol/L 12/08/2024 12:22 PM EDT [facility] Anion Gap 14 >=0 12/08/2024 12:22 PM EDT [facility] Glucose 90 60 - 99 mg/dL 12/08/2024 12:22 PM EDT [facility] Creatinine 0.87 0.50 - 1.12 mg/dL 12/08/2024 12:22 PM EDT [facility] Calcium 9.9 8.4 - 10.4 mg/dL 12/08/2024 12:22 PM EDT [facility] Total Protein 6.8 6.6 - 8.7 g/dL 12/08/2024 12:22 PM EDT [facility] Albumin 4.0 3.5 - 5.0 g/dL 12/08/2024 12:22 PM EDT [facility] Bilirubin, Total 0.6 0.2 - 1.2 mg/dL 12/08/2024 12:22 PM EDT [facility] Alkaline Phosphatase 87 40 - 129 U/L 12/08/2024 12:22 PM EDT [facility] AST 16 0 - 33 U/L 12/08/2024 12:22 PM EDT [facility] ALT 14 <=33 U/L 12/08/2024 12:22 PM EDT [facility] BUN 18 6 - 20 mg/dL 12/08/2024 12:22 PM EDT [facility] eGFR 80 >=60 mL/min/1. 73m2 12/08/2024 12:22 PM EDT [facility] Comment:The estimated glomer ular filtration [...] - 4.2 g/dL 12/08/2024 12:22 PM EDT [facility] A/G Ratio 1.4(L) 1.5 - 3.0 12/08/2024 12:22 PM EDT [facility] Blood Structure of peripheral vein / Unknown Venipuncture / Unknown 12/08/2024 11:43 AM EDT 12/08/2024 11:47 AM EDT us Giovanna [facility] BLOOD ORDERABLES Final R esult [facility] [address] [id number], from Last 3 Months or Most Recently Relevant to Health Maintenance Insurance [facility] MEDICA[employer] Care Teams Sheet Mill Supervisor Relationship Specialty Start Date End Date Sabrina Carr MD [address] [place] [address] PCP - General Internal Medicine 12/08/24
--- OUTSIDE RECORDS SUMMARY | 2025-04-05 23:03 | XMS_ITS | Clinical Summary ---
Author Organization [facility] Address [address] [place] [id number] Phone Care Team Providers Care Box Press Operator Name Role Phone Sabrina Carr MD Primary [...] Devices Not on file Insurance [place] [address] [place] [address] ACO Member Subscriber Plan / Payer (Ef fective 2018-Present) Name:Afshan Castro Relation to Subscriber:Self Name:Afshan Castro Payer ID:[id number] Group ID:[id number] Type:Medicaid Address: [place] [id number] [place] [address] [place] [address] [place] [address] [place] [address] [place] [address] [place] [address] [place] [address] [place] [address] [place] [address] [place] [address] [place] [address] ACO Care Teams Box Press Operator Relationship Specialty Start Date End Date Sabrina Carr MD [facility] [address] PCP - General Internal Medicine 11/26/18 Additional Source Comments The information contained in this document represents components of the legal health record. It is not the complete legal health record.[facility]
--- NOTE | 2025-04-05 23:11 | ED.URI ---
HPI - URI/Sore Throat General Chief Complaint: Upper Respiratory Symptoms Stated Complaint: SOB, DIZZINESS NAUSEA, MUCUS Time Seen by Provider: 04/05/25 22:40 Source: patient Mode of arrival: ambulatory Limitations: no limitations History of Present Illness ED Provider: Dr. Marifer Elizabeth HPI Narrative: 54-year-old female with a history of chronic lymphedema presenting with flu-like symptoms ongoing for the last 24 hours or so. Her son was diagnosed with influenza a yesterday. He is autistic and reportedly is ?always in her face?. States that she has developed a cough that is nonproductive, nausea, generalized malaise, body aches, subjective chills but no measured temperature at home, several episodes of nonbloody diarrhea. Last dose of acetaminophen was 2 hours prior to arrival. Has been feeling well prior to this. Denies vision changes, vomiting, hematochezia or melena, urinary complaints. She has not had her flu shot this year. Related Data Home Medications ?Medication ?Instructions ?Recorded ?Confirmed sertraline 25 mg tablet 25 mg PO DAILY 07/31/24 sertraline 50 mg tablet 50 mg PO DAILY 07/31/24 pantoprazole 40 mg tablet,delayed 40 mg PO DAILY PRN heartburn 03/05/25 release Previous Rx's ?Medication ?Instructions ?Recorded loratadine 10 mg tablet (Allergy 10 mg PO DAILY PRN allergy 01/18/25 Relief (loratadine)) symptoms #90 tabs ferrous sulfate 325 mg (65 mg 325 mg PO DAILY #30 tabs 02/24/25 iron) tablet ondansetron 4 mg disintegrating 4 mg PO Q8H PRN nausea and 04/05/25 tablet vomiting #10 tabs oseltamivir 75 mg capsule (Tamiflu) 75 mg PO BID 5 days #10 caps 04/05/25 Allergies Allergy/AdvReac Type Severity Reaction Status Date / Time cephalexin (From KEFLEX) Allergy Unknown ANGIOEDEMA Verified 04/05/25 22:13 contrast dyes Allergy Unknown tongue Verified 04/05/25 22:13 numbness, headache, airway involvement, tongue numbness, headache, airway involvement kiwi (KIWI) Allergy Unknown ANAPHYLAXIS Verified 04/05/25 22:13 Sulfa (Sulfonamide Allergy Unknown anaphylaxis, Verified 04/05/25 22:13 Antibiotics) (SULFA diarrhea (SULFONAMIDE ANTIBIOTICS)) naproxen (Naprosyn) AdvReac Unknown vomiting Verified 04/05/25 22:13 nitrofurantoin (Macrobid) AdvReac Unknown dizziness Verified 04/05/25 22:13 oxycodone (Percocet) AdvReac Unknown vomiting Verified 04/05/25 22:13 sulfamethoxazole AdvReac Unknown diarrhea Verified 04/05/25 22:13 Review of Systems Review of Systems: as per HPI, full review of systems performed and negative but for the above mentioned pertinent positives and negatives. [facility] Past Medical History Medical History Rosacea Varicose veins of bilateral lower extremities with pain Anemia Hidradenitis suppurativa Primary osteoarthritis of right hip Chronic hip pain, bilateral Annual visit for general adult medical examination with abnormal findings Diverticulosis History of small bowel obstruction Folliculitis Type 2 diabetes mellitus without complication, without long-term current use of insulin Morbid obesity Traumatic brain injury Fatty liver Chronic GERD Essential hypertension DARIELA (obstructive sleep apnea) Narcolepsy Dyslipidemia Surgical History History of sleeve gastrectomy History of colonoscopy History of hernia repair History of carpal tunnel release of both wrists Family History Family History Father Diabetes mellitus HTN (hypertension) Mental health disorder Mother Diabetes mellitus HTN (hypertension) Son Autism Daughter Glioblastoma multiforme Maternal Grandfather Cancer of prostate Brother No problems noted. Sister No problems noted. Son No problems noted. Social History Social History Housing: House Alcohol intake: former Patient Tobacco Use Status: Never used Tobacco e-Cigarette/Vaping Use: Never Used Advance Directives: No Advance Directives Information Provided: Yes service: No Current occupational status: unemployed Cognitive needs: No Hearing needs: No Vision needs: No Physical Exam Exam: Exam: GENERAL: Ill-Appearing, appears uncomfortable. SKIN: Normal skin color for ethnicity, warm, dry, no rashes noted. HEENT:? Normocephalic, atraumatic, no stridor, dry mucous membranes, dentition intact, EOMI. NECK: Soft, supple, full ROM, midline structures nontender, no step-offs, no deformities, no lymphadenopathy. CHEST: Heart regular tachycardia, no murmurs, symmetric chest rise and fall. PULMONARY: Clear to auscultation bilaterally, diminished at the bases, no labored breathing, no wheezes/rhales/rhonchi, occasional dry cough. ABDOMINAL: Soft, nondistended, nontender, positive bowel sounds in all quadrants. : Deferred. MUSCULOSKELETAL: Normal tone, full range of motion, no deformities, no peripheral edema. NEURO: Alert and oriented x3, CN II through XII intact, equal strength and sensation bilateral upper and lower extremities, no focal neurologic deficits.? PSYCHIATRIC: Flat affect, fluid speech, good eye contact and appropriate demeanor. Vital Signs: Vital Signs: Last Vital Signs Temp 98.1 F 04/05/25 22:11 Pulse 75 04/05/25 22:11 Resp 18 04/05/25 22:11 BP 162/88 H 04/05/25 22:11 Pulse Ox 97 04/05/25 22:11 O2 Del Method Room Air 04/05/25 22:11 BMI result Body Mass Index 38.6 Medical Decision Making Medical Decision Making [facility] Narrative: Patient presents today with flu-like symptoms. Positive sick contacts. Differential diagnosis includes influenza, coronavirus, pneumonia, upper respiratory infection, among others. Most importantly, this patient is not in any acute respiratory distress. They have normal oxygen levels at room air. I have discussed Tamiflu treatment for presumed influenza despite a negative PCR test and other home therapies that will help the patient and have discussed strict return precautions. Instructed that symptoms may worsen and the patient might need re-evaluation or even hospitalization in the future, but did not show signs of this at the time of discharge. Differential Diagnosis Differential Diagnoses: The differential diagnosis associated with the presentation includes (as above) Admission/Observation Consideration of admission/observation: Escalation of care including admission/observation considered Lab Data [facility] Lab Attestation statement: I reviewed the patient's lab results. Labs: Lab Results 04/05/25 Range/Units 22:30 Influenza Type A (CHRISS) Negative (Negative) Influenza Type B (CHRISS) Negative (Negative) Influenza A & B Note See Note S. pyogenes GrpA CHRISS Negative (Negative) Independent Historian Clinical information obtained from an independent historian. History obtained from or confirmed by: Parent External Record Review External record reviewed: Inpatient record Prescription Management I considered prescription management with: Antiviral and Other (Antiemetic) Chronic Conditions Patient?s care impacted by: Other (Depression) Social Determinants Patient?s care significantly limited by Social Determinants of Health including: Other Social Determinant of Health Discharge Plan Discharge Clinical Impression: Influenza-like illness Patient Disposition: Home, Self-Care Instructions: Influenza (ED) Additional Instructions: You have been diagnosed with influenza. While your initial rapid flu swab is negative, that does not mean that you do not have influenza. Your symptoms are consistent with this illness and you will be treated as such. Take Tamiflu for the next 5 days as prescribed until the course is completed. Do not stop this medication early if you start to feel better. Use Zofran as needed for nausea and vomiting. Try to drink plenty of water over the next several days. If you do not improve with treatment or if your symptoms get worse, you should return to the emergency department immediately. Call 911 for any medical emergency including difficulty breathing or severe chest pain. Prescriptions: New oseltamivir [Tamiflu] 75 mg capsule 75 mg PO BID 5 Days Qty: 10 0RF ondansetron 4 mg tablet,disintegrating 4 mg PO Q8H PRN (Reason: nausea and vomiting) Qty: 10 0RF No Action loratadine [Allergy Relief (loratadine)] 10 mg tablet 10 mg PO DAILY PRN (Reason: allergy symptoms) Qty: 90 1RF pantoprazole 40 mg tablet,delayed release (DR/EC) 40 mg PO DAILY PRN (Reason: heartburn) sertraline 50 mg tablet 50 mg PO DAILY sertraline 25 mg tablet 25 mg PO DAILY ferrous sulfate 325 mg (65 mg iron) tablet 325 mg PO DAILY Qty: 30 5RF Print Language: Hong Konger
[2025-04-05 23:33] VITALS: BP 142/68; PULSE 69; RESP 17; TEMP 36.8; O2SAT 98
== END 2025-04-05 23:35 | disposition home or self-care (01) ==
PROVIDERS: Emergency Provider Emergency Medicine; PCP Internal Medicine
DX: J11.89 Influenza due to unidentified influenza virus with other manifestations (principal); R42 Dizziness and giddiness; R06.02 Shortness of breath; R11.0 Nausea; Z03.818 Encounter for observation for suspected exposure to other biological agents ruled out
CPT/HCPCS: 87502; 87651; 99282; 99283